=== PATIENT | female | born 1965 | race Caucasian/White ===

== ENCOUNTER 2018-05-26 09:14 | Outpatient (POV) | END 2018-05-26 17:00 | LOC: OUTPT 09:14 | PROVIDERS: ATTEND Otolaryngology | DX: H91.90 Unspecified hearing loss, unspecified ear (principal) ==

== ENCOUNTER 2018-09-28 10:35 | Outpatient (CLI) | END 2018-09-28 10:36 | disposition home or self-care (01) | LOC: RHC-LAB 10:35 → FCC-LAB 10:36 | PROVIDERS: ATTEND Nurse Practitioner Family | DX: L89.322 Pressure ulcer of left buttock, stage 2 (principal); L03.317 Cellulitis of buttock | CPT/HCPCS: 87070; 87186 ==

== ENCOUNTER 2018-09-29 09:55 | Outpatient (CLI) | END 2018-09-29 09:56 | disposition home or self-care (01) | LOC: WOUND 09:55 | PROVIDERS: ATTEND Nurse Practitioner Family | DX: L89.323 Pressure ulcer of left buttock, stage 3 (principal); L89.313 Pressure ulcer of right buttock, stage 3; E11.9 Type 2 diabetes mellitus without complications; Z79.4 Long term (current) use of insulin | CPT/HCPCS: 99202 ==

== ENCOUNTER 2018-10-01 11:20 | Inpatient (IN) ==
[2018-10-01] MEDS ORDERED: SODIUM CHLORIDE 1,000 ML IV STA (12:31)
[2018-10-01] MEDS ORDERED: ZOSYN 4.5 GM 4.5 GM in SODIUM CHLORIDE 100 ML IV STA (12:32)
[2018-10-01] MEDS ORDERED: HUMULIN R SUBCUT STA ×3 (12:36→15:52)
--- NOTE | 2018-10-01 12:37 | CT ---
EXAM: CT THORAX HISTORY: Cough. TECHNIQUE: CT thorax without intravenous contrast. Multiplanar images presented. Of COMPARISON: None FINDINGS: Normal heart size. No pericardial effusion. Mild atherosclerotic disease involving also the coronar y arteries. Thoracic aorta is within normal limits otherwise. A few scattered nonspecific small med iastinal lymph nodes are present. Lung volumes were low. Scattered areas of faint discoid opacity which probably represents atelectasi s although minimal pneumonia is not excluded. Normal vascularity. No pleural fluid or pneumothorax. The bones are within normal limits. IMPRESSION: Atherosclerosis. 1. Lung volumes were low. Scattered areas of faint discoid opacity which probably represents atelec tasis although minimal pneumonia is not excluded. 2. Atherosclerotic disease involving the coronary arteries as well.
[2018-10-01] MEDS ORDERED: VANCOMYCIN 1 GM in SODIUM CHLORIDE 250 ML IV STA (12:43)
--- NOTE | 2018-10-01 12:43 | CT ---
EXAM: CT pelvis HISTORY: Decubitus ulcer. TECHNIQUE: CT pelvis without contrast. Multiplanar images provided. FINDINGS: No comparison. Diagnostic limitations may exist without including contrast enhanced images. No ascites. Bowel gas pattern is within normal limits. Urinary bladder appears normal. No uterus is seen. Posterior to the distal sacrum, there is mild thickening of soft tissue attenuation. Also mild cutan eous deformity. This suggests the level of the patient's ulcer. The soft tissue opacity may represe nt granulation tissue or complex fluid. There is no well-defined drainable collection seen. No timoteo onal gas collection is obvious. The bones reveal no evidence of the destructive process or fracture. There is no CT evidence of oste omyelitis. IMPRESSION: 1. Shallow decubitus ulcer posterior to the lower sacrum with no drainable or defined fluid collecti on or gas. 2. No evidence of osteomyelitis.
--- NOTE | 2018-10-01 12:45 | ED.PDOC ---
General ED Provider: Dr. AUSTEN ALLEN Chief Complaint: Diabetes Stated Complaint: high blood sugar Time Seen by Physician: 11:20 (at 11:15 pm told me pt's blood sugar is trending high sending to ED ) Mode of Arrival: Wheelchair Information Source: Patient, Family Exam Limitations: No limitations (ARRIVED AOX3 NO ACUTE DISTRESS NEURO ON ARRIVAL WNL) Primary Care Provider: KAREN FORDE Nursing and Triage Documentation Reviewed and Agree: Yes Does patient meet sepsis criteria?: No If yes, has appropriate treatment been initiated?: Yes System Inflammatory Response Syndrome: Not Applicable Sepsis Protocol: For patient's 13 years and over: Temp is 96.8 and below OR 101 and greater Pulse >90 BPM Resp >20/minute Acutely Altered Mental Status Are patient's symptoms suggestive of a new infection, such as: -Pneumonia -Skin, Soft Tissue -Endocarditis -UTI -Bone, Joint Infection -Implantable Device -Acute Abdominal Infection -Wound Infection -Meningitis -Blood Stream Catheter Infection -Unknown Endocrine Complaint Exam - Diabetic Complication Complaint/Exam Onset/Duration: TODAY Symptoms Are: Still present Timing: Constant Initial Severity: Moderate Current Severity: Moderate (HIGH BLOOD SUGAR NEURO WNL) Aggravating: Reports: None Alleviating: Reports: None (HAS A STAGE 3 DECUB ULCER ) Associated Signs and Symptoms: Reports: Polydipsia, Polyuria, Polyphagia. Denies: Decreased LOC, Weight loss, Abdominal pain, Nausea, Vomiting, Fever, Diaphoresis, Fruity breath Related History: Reports: DM 2, Insulin requiring, Neuropathy Cardiac Risk Factors: Reports: Hypertension CVA Risk Factors: Reports: Hypertension Serious Bacterial Infection Risk Factors: Reports: None (BUT HAS DECUB ULCER ) Acetone on Breath: No Dry Mucous Membranes: Yes Kussmaul Respirations: No Glascow Coma Scale (see protocol): 15 Meningeal Signs: No Focal Weakness: None Focal Sensory Loss: None Gait: Unable (BKA BILATERAL) Nystagmus Present: No Gag Reflex Present: Yes Finger to Nose: Normal Romberg Test Positive: No Babinski Sign: Negative Right, Negative Left Differential Diagnoses: Diabetic Ketoacidosis, Hyperosmolar State, Sepsis Quality Indicator For Non-Traumatic Chest Pain/Syncope: EKG Performed Review of Systems - Review Of Systems Constitutional: Reports: Malaise Eyes: Reports: No symptoms Ears, Nose, Mouth, Throat: Reports: No symptoms Respiratory: Reports: No symptoms Cardiac: Reports: No symptoms GI: Reports: No symptoms : Reports: Frequency Musculoskeletal: Reports: No symptoms Skin: Reports: No symptoms Neurological: Reports: No symptoms Endocrine: Reports: No symptoms Hematologic/Lymphatic: Reports: No symptoms All Other Systems: Reviewed and Negative Past Medical History - Past Medical History Previously Healthy: No Endocrine: Reports: DM 2 Cardiovascular: Reports: Hypertension Respiratory: Reports: None Hematological: Reports: None Gastrointestinal: Reports: None Genitourinary: Reports: UTI Neuro/Psych: Reports: Depression Musculoskeletal: Reports: Other (BKA ) Cancer: Reports: None Last Menstrual Period: none - Surgical History General Surgical History: Reports: None - Family History Family History: Reports: None - Social History Smoking Status: Never smoker Hx Substance Use: No Alcohol Screening: None Physical Exam - Physical Exam Appearance: Well-appearing, No pain distress, Well-nourished Eyes: SAMREEN, EOMI, Conjunctiva clear ENT: Dry mucosa Respiratory: Airway patent, Breath sounds clear, Breath sounds equal, Respirations nonlabored Cardiovascular: RRR, Pulses normal, No rub, No murmur GI/: Soft, Nontender, No masses, Bowel sounds normal, No Organomegaly Musculoskeletal: Normal strength, ROM intact, No edema, No calf tenderness Skin: Warm, Dry, Normal color Neurological: Sensation intact, Motor intact, Reflexes intact, Cranial nerves intact, Alert, Oriented Psychiatric: Affect appropriate, Mood appropriate Re-Evaluation - Re-Evaluation Time of Re-Evaluation: 12:48 (NEURO NONE FOCAL) Status: Unchanged, Improved Vital Signs Stable: Yes Pain Level: 0 Appearance: NAD Lungs: Clear Skin: Warm and Dry Neuro: Alert and Oriented X3 CV: RRR Physician Notification - Case Discussed Physician Notified: PMD Time of Notification: 12:48 (ADMITTED ) Admit/Transition Orders Entered by ED Provider: Yes Admit To: Inpatient Critical Care Note - Critical Care Note Total Time (mins): 0 Course - Course Hematology/Chemistry: 10/01/18 11:45 10/01/18 11:45 Orders, Labs, Meds: Lab Review 10/01/18 10/01/18 10/01/18 11:45 11:45 11:45 WBC 9.35 RBC 4.44 Hgb 12.5 Hct 39.0 MCV 87.8 MCH 28.2 MCHC 32.1 RDW Coeff of Veda 13.4 Plt Count 254 Immature Gran % (Auto) 0.4 Neut % (Auto) 68.2 Lymph % (Auto) 21.3 Bowman % (Auto) 7.7 Eos % (Auto) 2.0 Baso % (Auto) 0.4 Immature Gran # (Auto) 0.0 Neut # (Auto) 6.4 Lymph # (Auto) 2.0 Bowman # (Auto) 0.7 Eos # (Auto) 0.2 Baso # (Auto) 0.0 Sodium 128.8 L Potassium 4.50 Chloride 95.7 L Carbon Dioxide 22.0 Anion Gap 15.60 BUN 10.2 Creatinine 0.94 Estimated GFR (MDRD) 63.00 BUN/Creatinine Ratio 10.85 Glucose 710.0 H* Lactic Acid Calcium 8.13 L Total Bilirubin 0.19 L AST 13.0 L ALT 13.7 Alkaline Phosphatase 63.8 Total Creatine Kinase Troponin I Total Protein 6.84 Albumin 3.69 Globulin 3.15 Albumin/Globulin Ratio 1.17 Procalcitonin 0.05 10/01/18 10/01/18 11:45 11:45 WBC RBC Hgb Hct MCV MCH MCHC RDW Coeff of Veda Plt Count Immature Gran % (Auto) Neut % (Auto) Lymph % (Auto) Bowman % (Auto) Eos % (Auto) Baso % (Auto) Immature Gran # (Auto) Neut # (Auto) Lymph # (Auto) Bowman # (Auto) Eos # (Auto) Baso # (Auto) Sodium Potassium Chloride Carbon Dioxide Anion Gap BUN Creatinine Estimated GFR (MDRD) BUN/Creatinine Ratio Glucose Lactic Acid 4.74 H Calcium Total Bilirubin AST ALT Alkaline Phosphatase Total Creatine Kinase 103.7 Troponin I Pending Total Protein Albumin Globulin Albumin/Globulin Ratio Procalcitonin Orders Category Date Time Status ABG DRAW REQUEST Stat CARDIO 10/01/18 12:28 Ordered EKG-(ED ONLY) Stat CARDIO 10/01/18 12:29 Ordered EKG-(IP & OP ONLY) DAILY CARDIO 10/02/18 06:00 Ordered EKG-(IP & OP ONLY) DAILY CARDIO 10/03/18 06:00 Ordered EKG-(IP & OP ONLY) DAILY CARDIO 10/04/18 06:00 Ordered ACTIVITY .Complete BR CARE 10/01/18 12:40 Ordered BLOOD GLUCOSE MONITORING ACCUCHECK Q6H CARE 10/01/18 12:40 Ordered GIVE HS SNACK 2100 CARE 10/01/18 12:42 Ordered VITAL SIGNS Q4HR CARE 10/01/18 12:40 Ordered VITAL SIGNS Q8HR CARE 10/01/18 12:40 Ordered ADA 1800 OSIRIS. DIET DIETARY 10/01/18 Lunch Ordered HS SNACK DIETARY 10/01/18 Dinner Ordered ED IV/MEDIPORT/POWERPORT .ONCE EMERGENCY 10/01/18 12:31 Ordered ABG Stat LAB 10/01/18 12:28 Ordered BLOOD CULTURE (ED ONLY) Stat LAB 10/01/18 11:45 Received CBC W/ AUTO DIFF DAILY@0600 LAB 10/02/18 06:00 Ordered CBC W/ AUTO DIFF DAILY@0600 LAB 10/03/18 06:00 Ordered CBC W/ AUTO DIFF Stat LAB 10/01/18 11:45 Completed COMPREHENSIVE METABOLIC PANEL DAILY@0600 LAB 10/02/18 06:00 Ordered COMPREHENSIVE METABOLIC PANEL DAILY@0600 LAB 10/03/18 06:00 Ordered COMPREHENSIVE METABOLIC PANEL Stat LAB 10/01/18 11:45 Completed CREATINE KINASE Q8H LAB 10/01/18 18:45 Ordered CREATINE KINASE Q8H LAB 10/02/18 02:45 Ordered CREATINE KINASE Stat LAB 10/01/18 12:29 Ordered LACTIC ACID Stat LAB 10/01/18 11:45 Completed PROCALCITONIN Stat LAB 10/01/18 11:45 Received TROPONIN I Stat LAB 10/01/18 12:29 Ordered URINALYSIS C & S IF INDICATED Stat LAB 10/01/18 11:48 Uncollected 0.9 % Sodium Chloride [Saline Flush] MEDS 10/01/18 12:31 Ordered 1 syr IVF PRN PRN Bupropion HCl [Bupropion Xl] MEDS 10/02/18 09:00 Ordered 300 mg PO DAILY Buspirone HCl [Buspirone HCl] MEDS 10/01/18 15:00 Ordered 20 mg PO TID Dressing MEDS 10/02/18 09:00 Ordered 1 each TP DAILY Gabapentin [Neurontin] MEDS 10/01/18 15:00 Ordered 300 mg PO TID Insulin Regular, Human [Humulin R] MEDS 10/01/18 12:36 Stat 15 unit SUBCUT ONCE STA Insulin Regular, Human [Humulin R] MEDS 10/01/18 12:39 Stat See Protocol SUBCUT ONCE STA Lorazepam [Ativan] MEDS 10/02/18 09:00 Ordered 1 mg PO DAILY Metformin HCl [Glucophage] MEDS 10/01/18 21:00 Ordered 500 mg PO BID Metoprolol Tartrate [Lopressor] MEDS 10/01/18 21:00 Ordered 25 mg PO BID Omeprazole [Omeprazole] MEDS 10/02/18 09:00 Ordered 40 mg PO DAILY Piperacillin Sodium/Tazobactam [Zosyn 4.5 gm] 4.5 gm MEDS 10/01/18 12:32 Ordered 0.9 % Sodium Chloride [Sodium Chloride] 100 ml IV ONCE SODIUM CHLORIDE 0.9% @ 1,000 MLS/HR(1,000ml) MEDS 10/01/18 12:31 Ordered Sodium Chloride 0.9% [Sodium Chloride] 1,000 ml IV BOLUS Sodium Chloride 0.9% [Sodium Chloride] 1,000 ml MEDS 10/01/18 13:00 Ordered IV 125 mls/hr Tizanidine HCl [Zanaflex] MEDS 10/01/18 15:00 Ordered 4 mg PO TID Vancomycin HCl [Vancomycin] 1 gm MEDS 10/01/18 12:43 Ordered 0.9 % Sodium Chloride [Sodium Chloride] [address] CHEST W/O CONTRAST Stat RADS 10/01/18 11:[address] PELVIS W/O CONTRAST Stat RADS 10/01/18 11:54 Ordered Medications Generic Name Dose Route Start Last Admin Trade Name Freq PRN Reason Stop Dose Admin Gabapentin 300 mg 10/01/18 15:00 Neurontin PO TID GABI Sodium Chloride 1,000 mls @ 1,000 mls/hr 10/01/18 12:31 Sodium Chloride IV 10/01/18 13:30 BOLUS STA Piperacillin Sod/Tazobactam 100 mls @ 100 mls/hr 10/01/18 12:32 Sod 4.5 gm/ Sodium Chloride IV 10/01/18 13:31 ONCE STA Sodium Chloride 1,000 mls @ 125 mls/hr 10/01/18 13:00 Sodium Chloride IV .Q8H GABI Lorazepam 1 mg 10/02/18 09:00 Ativan PO DAILY GABI Metformin HCl 500 mg 10/01/18 21:00 Glucophage PO BID GABI Metoprolol Tartrate 25 mg 10/01/18 21:00 Lopressor PO BID GABI Non-Formulary Medication 20 mg 10/01/18 15:00 Buspirone Hcl [Buspirone Hcl] PO TID [facility] Non-Formulary Medication 1 each 10/02/18 09:00 Dressing TP DAILY [facility] Non-Formulary Medication 40 mg 10/02/18 09:00 Omeprazole [Omeprazole] PO DAILY GABI Non-Formulary Medication 4 mg 10/01/18 15:00 Tizanidine Hcl [Zanaflex] PO TID [facility] Non-Formulary Medication 300 mg 10/02/18 09:00 Bupropion Hcl [Bupropion Xl] PO DAILY [facility] Sodium Chloride 1 syr 10/01/18 12:31 Saline Flush IVF PRN PRN To flush IV Discontinued Medications Generic Name Dose Route Start Last Admin Trade Name Freq PRN Reason Stop Dose Admin Insulin Human Regular 15 unit 10/01/18 12:36 Humulin R SUBCUT 10/01/18 12:37 ONCE STA Insulin Human Regular 0 unit 10/01/18 12:39 Humulin R SUBCUT 10/01/18 12:40 ONCE STA Protocol Vital Signs: Temp Pulse Resp BP Pulse Ox 10/01/18 11:20 96.7 F L 76 18 112/73 98 Departure - Departure Time of Disposition: 12:49 (NO ACUTE EVENT WHILE IN ED ) Disposition: ADMITTED INPATIENT Discharge Problem: Uncontrolled diabetes mellitus Qualifiers: Diabetes mellitus type: type 2 Glycemic state: with hyperglycemia Qualified Code(s): E11.65 - Type 2 diabetes mellitus with hyperglycemia Condition: Good Pt referred to PMD for follow-up: Yes IPMP verified?: No Allergies/Adverse Reactions: Allergies iodine Allergy (Verified 10/01/18 11:25) Anaphylaxis promethazine HCl [From Phenergan] Allergy (Verified 10/01/18 11:25) rash Iodinated Contrast- Oral and IV Dye Adverse Reaction (Verified 10/01/18 11:25) Home Medications: Ambulatory Orders Tizanidine HCl [Zanaflex] 4 mg PO TID 08/30/18 Disposition Discussed With: Patient, Family
[2018-10-01 14:28] VITALS: BMI 51.4
[2018-10-01] MEDS ORDERED: BUSPIRONE HCL 20 MG PO SCH (15:00)
[2018-10-01] MEDS ORDERED: NEURONTIN PO SCH (15:00)
[2018-10-01] MEDS ORDERED: NON-FORMULARY MEDICATION (Tizanidine Hcl [Zanaflex] 4 MG) PO SCH (15:00)
[2018-10-01] MEDS: ZANAFLEX PO SCH ×2 (16:02→21:43)
[2018-10-01] MEDS: BUSPAR PO SCH ×2 (16:03→21:43)
--- NOTE | 2018-10-01 16:34 | PCM ---
- Chief Complaint Chief Complaint: Hyperglycemia, Sacral wound. - History of Present Illness History of Present Illness: 53 yo WF presented to clinic today with sharon for hyperglycemia. She has been feeling worse ~2 weeks since onset of her pain in her buttock. She has had worsening pain, nausea, drinking more liquids. She called clinic 09/17/18 and was told to go to ER with how she was feeling. Thursday09/27/18 she called back, she did not go to ER week previous as instructed, did not want to go to ER . She called clinic and was able to get appt w/ [facility]CHARDIST [facility] 09/28/18, got her into wound care on 09/29/18. She did see them, open wound, bandaged wound, topical ointment sent home, keflex started on thursday and they changed this for bactrim. She has no sulfa allergy. She called today and reported worsening still. I had them bring her to clinic for evaluation as she reported blood glucose was HHH. We brought her in, I talked with her, evaluated vitals, non SIRS criteria, GCS 15, no odor of fruit and she was able to articulate/answer questions. I recommended ER evaluation for labs, eval for DkA/HOSM, and potassium. She was sent to ER around 11:20 this am. We did not eval her wound in clinic. She noted #2 lesions of the buttocks, I do not have access to the wound care notes. She has no other complaints, no CHest pain, no HERRERA, no vision changes. +Polydipsia/thirst, fatigue and nausea with sporadic emesis. ED note reviewed, talked with Dr. Atkinson personally about history. 11:20 this AM I called ED and informed them of Glucose registering HHH on accucheck. She was taken to ER in and evaluated. SIRS criteria were not met, afebrile, HR stable, BP stable, WBC found to be stable. ER reporrted symptoms started today ( but this has been present for a while). High blood sugar, neuro within normal limits, Stage 3 decub ulcer, polydipsia, polyruia, polyphagia. history of DM2, Insulin requiring, neuropathy. HTN. BKA bilaterally, DDX dka, hyperosmolar state, Sepsis. History of DM 2 uncontrolled, morbid obesity, bilateral bka, HTN , UTI frequently. Non focal neruo exam, GX 15, NAD similar to how she presented to clinic today. 12:48 called me today and admitted to hospital. WBC 9.35, hgb 12.5, plt 254. Sodium 128.8, potassium 4.50, cl 95.7, c02 22, gap 15.60, BUN 10.2, cr 0.94, GFR 63, glucose 710, lactic acid 4.74, calcium 8.13, AST 13, alt 13.7, alk phos 63.8. Albumin 3.69. Procalcitonin normal at 0.05. Total CK 103.7, troponin negative. Admitted with DM 2 w/ hyperglycemia. Reviewed note from 09/28/18 from DAWSON Yepez. Stage 2 Ulcer buttock, ? cellulitis dx. Put on keflex. I do not have access to wound care note. Patient today has no other c/o. - Review of Systems Constitutional: chills, weakness, sweats, fatigue, loss of appetite Eyes: No: blurred vision, double-vision, discharge, itching, pain, redness, photophobia, other Ears: No: pain, bleeding, drainage, ringing, hearing loss, other Nose: No: bleeding, congestion, discharge, other Throat: No: pain, swelling, voice change, other Mouth: No: bleeding, pain, swelling, other Respiratory: No: cough, shortness of air, wheeze, hemoptysis, pain with breathing, other Cardiovascular: No: chest pain, left arm pain, diaphoresis, PND, orthopnea, edema, palpitations, syncope, other Gastrointestinal: abdominal pain, nausea, vomiting. No: other, diarrhea, melena , hematemesis, hematochezia, dysphagia, constipation Genitourinary: No: dysuria, hematuria, frequency, incontinence, flank pain, vaginal discharge, abnormal bleeding, pelvic pain, other Neurological: problems with walking (chronic). No: headache, dizziness, seizure , numbness, weakness, speech difficulty Musculoskeletal: other (BKA) Skin: wounds (Buttock #2) Immunology: frequent infections, difficulty healing Hematology: easy bruising Endocrine: excessive thirst, excessive hunger Psychiatric: depression, anxiety, sleeplessness Habits: No: tobacco use, substance use, alcohol use, other - Past Medical History Past Medical History: Insulin dependent DM, hard of hearing, essential HTN, phantom pain, BKA, BMI 51.4, Depression, WC dependent, hyperlipidemia, GERD, recurrent sniusitis, dietary indiscretion, Chrnoic systolic CHF. - Past Surgical History Past Surgical History: Appendectomy, cholecystectomy, hysterectomy, tonsillectomy, BKA. - Allergies Allergies/Adverse Reactions: Allergies Allergy/AdvReac Type Severity Reaction Status Date / Time iodine Allergy Anaphylaxis Verified 10/01/18 11:25 promethazine HCl Allergy rash Verified 10/01/18 11:25 [From Phenergan] Iodinated Contrast- Oral and AdvReac Verified 10/01/18 11:25 IV Dye - Medications Medications: Medications Generic Name Dose Route Start Last Admin Trade Name Freq PRN Reason Stop Dose Admin Bupropion HCl 300 mg 10/02/18 09:00 Wellbutrin Xl PO DAILY GABI Buspirone HCl 20 mg 10/01/18 15:00 10/01/18 16:03 Buspar PO 20 mg TID GABI Administration Gabapentin 300 mg 10/01/18 15:00 10/01/18 16:02 Neurontin PO 300 mg TID GABI Administration Sodium Chloride 1,000 mls @ 125 mls/hr 10/01/18 13:00 Sodium Chloride IV .Q8H GABI Lorazepam 1 mg 10/02/18 09:00 Ativan PO DAILY GABI Metformin HCl 500 mg 10/01/18 17:30 Glucophage PO BIDWM GABI Metoprolol Tartrate 25 mg 10/01/18 21:00 Lopressor PO BID GABI Non-Formulary Medication 1 each 10/02/18 09:00 Dressing TP DAILY [facility] Omeprazole 40 mg 10/02/18 06:30 Prilosec PO QDAC GABI Sodium Chloride 1 syr 10/01/18 12:31 10/01/18 13:09 Saline Flush IVF 1 syr PRN PRN Administration To flush IV Tizanidine HCl 4 mg 10/01/18 15:00 10/01/18 16:02 Zanaflex PO 4 mg TID GABI Administration - Family History Past Family History: Adopted. boys aged 21 and 17. They have no medical problems. - Social History Past Social History: Never smoker, Intermittent ETOH, alevism. Lives with . - Vital Signs Temperature: 99.1 F Pulse Rate: 77 Respiratory Rate: 20 Blood Pressure: 112/73 O2 Sat by Pulse Oximetry: 98 - Body Composition Height: 4 ft 8 in Weight: 229 lb 4.492 oz Body Mass Index (BMI): 51.4 - Physical Examination HEENT: Constitutional: Appearance-No acute distress, Consistent with stated age, talkative, hard of hearing, pleasant. Orientation- Oriented x 3, alert Gait- BKA , WC ambulates. Build and Nutrition-[morbidly obese female] General- Patient is pleasant and cooperative with the interview and exam. Integumentary: General-No rashes, ulcers or lesions. With nurse present skin of chest/back, axilla, groin and buttock evaluated. She has lesions x2 on buttock currently bandaged. REmoved bandage and evaluated these. 4x5 Left, 3x2 Right. Bilateral tibial tuberosity with small erosions from her prosthetic. None look overtly infected. She has minimal erythema along the rim, some yellow eschar. They are stage 2/3 on buttock and 1-2 on legs. She has erosion on legs from the prosthetic. Numerous excoriations bilateral wrists/hands from puppy. No cats reported. Palpation- Normal skin moisture/turgor. Skin is warm to touch, appropriate. Capillary refill is normal bilateral Upper extremity. Stump of bilateral BKA appears intact. Head/Neck: Head- normocephalic and atraumatic. Neck- without visible/palpable lumps or pulsations. Palpation- No bony tenderness about head/neck along frontal, occipital, temporal, parietal, mastoid, jawline, zygoma, orbit or any other location. NO temporal artery tenderness. No TMJ tenderness. Neck Supple. Thyroid-No thyromegaly, no nodules Eye: Bilaterally PERRLA, EOMI. No discharge. Upper and lower eyelids are normal. Sclera/conjunctiva normal without discharge. Cornea is normal and clear. Lens is normal. Eyeball appears normal. No ciliary flushing, no conjunctival injection. ENMT: Pinna- normal without tenderness or erythema. External auditory canal Left- normal without erythema or discharge, no excessive cerumen. External auditory canal Right-normal without erythema or discharge, no excessive cerumen. TM left- López/pearly, normal light reflex and anatomy TM Right- López/ pearly, normal light reflex and anatomy Hearing Assessment-normal to conversational speech. Nose and sinus- No sinus tenderness along frontal/ maxillary region. External appearance normal and midline. Nares- bilateral quiet airflow, no discharge. Nasal mucosa- No bleeding noted and no ulcerations observed. [place], moist. Turbinates non boggy. Lips- normal color, moist without cracks/lesions Oral Cavity/Palate- hard/soft palate intact without lesions, oral mucosa pink and moist. Oropharynx- no pharyngeal erythema, Uvula midline. No post nasal drip. No exudate. Salivary glands- Non tender to palpation CHEST/LUNG: Inspection- symmetric chest wall no pectus deformity. Normal effort , no distress, no use of accessory muscles. Palpation- nontender sternum, ribline. No abnormal pulsations. Auscultation- Breath sounds normal throughout all lung dyson. Normal tracheal sounds, Normal bronchial sounds overlying sternum, Bronchovessicular sounds normal between scapulae posteriorly, Normal vessicular breath sounds heard throughout periphery. Lungs are clear today. Adventitious sounds- No wheezes, rales, rhonchi. CARDIOVASCULAR: Carotid artery- normal, no bruits or abnormal pulsations. Jugular vein- no pulsations. Palpation/Percussion- Normal PMI, no palpable thrill Auscultation- Regular rate and rhythm. No murmur noted in sitting, supine positions. Extremities- no digital clubbing, cyanosis, or edema of UE (BKA). ABDOMEN: Inspection- normal and no visible pulsations. Normal contour. Auscultation- Bowel sounds normal, no abdominal bruits. Palpation/Percussion- soft, non-tender, no rebound tenderness, no rigidity (guarding), no jar tenderness, no masses. Liver-no hepatomegaly, Spleen no splenomegaly, Peripheral Vascular: Upper extremity Left- Normal temperature with pink nailbeds and no ulcerations. Upper extremity Right- Normal temperature with pink nailbeds and no ulcerations. Lower extremity- unable to evaluate, s/p BKA > Musculoskeletal: Generalized-No generalized swelling or edema of extremities, no digital clubbing or cyanosis, neurovascularly intact bilateral UE. Upper extremity- Symmetrical posture. No visible deformity. Normal sensation along medial and lateral upper extremity proximally and distally. NO tenderness overlying shoulder, lateral/medial epicondyle. Drying Equipment Operator 5/5 and strength 5/5 bilateral UE. Elbow palpated, no tenderness overlying olecranon. Normal supination, pronation to active/passive ROM and to resisted rotation. Bicep insertion/tricep insertion appear normal without obvious pathology. Normal wrist ROM bilaterally. Normal hand movement, intrinsic muscles of hands normal. No tenderness to palpation of hands/wrists/elbows. Lower extremity- Hip: Not tender to palpation, no pain, no swelling, edema or erythema of surrounding tissue, normal strength and tone. Normal appearing hip ROM bilaterally without pain. Knee: Knee ROM normal. BKA bilaterally. Stumps intact other than a few abrasions/erosions. No e/o infection. No tenderness overlying trochanters, no tenderness about patella, quad tendon, Spine/Ribs- Able to roll. No deformities, masses or tenderness, no known fractures, normal strength, Normal ROM. Normal stability No tenderness along C/T /L spine. Normal appearing ROM about spine. Neurological: General- Moves all 4 extremities symmetrically, bilateral UE within normal limits. Bilateral LE knee flexion/extension at stump and normal hip ROM. Symmetrical face and body posture. Cranial nerves- individually evaluated II-XII and intact. PERRLA, Normal EOMI, visual/special senses appear intact, Face is symmetrical and normal sensation/movement, normal tongue, normal strength/posture of neck musculature. Reflexes- intact with DTR 2+ bicep , brachial. Strength- 5/5 bilateral UE and LE. Soft touch- intact bilateral UE and LE to the knee. Temperature sensation- intact bilateral UE and LE to the knee. Neuropsych: Oriented- Person, place, time. (AAOx3), Mood/affect- normal and congruent. Able to articulate well. Speech-Normal speech, normal rate, normal tone, normal use of language, volume and coherence. Thought content- normal with ability to perform basic computations and apply abstract thought/reason. Associations- intact, no SI/HI, no hallucinations, delusions, obsessions. Judgment/insight- Appropriate. Memory-Recall intact, remote and recent memory intact. Knowledge- Age appropriate fund of knowledge, concentration and attention span normal. Lymphatic: Head/Neck- normal size and non tender to palpation. Axillary- normal size and non tender to palpation. Femoral and Inguinal- normal size and non tender to palpation. 4x5 Left, 3x2 Right. Bilateral tibial tuberosity with small erosions from her prosthetic. [place] Weight 100.3 lb Adjusted Weight 151.8 lb - Lab/Tests/Diagnostic Imaging Lab/Tests/Diagnostic Imaging: Laboratory Last Values WBC 9.35 K/ul (4.6-10.2) 10/01/18 11:45 RBC 4.44 10^6/ul (4.20-5.40) 10/01/18 11:45 Hgb 12.5 g/dl (12.0-16.0) 10/01/18 11:45 Hct 39.0 % (37.0-47.0) 10/01/18 11:45 MCV 87.8 fl (81.0-99.0) 10/01/18 11:45 MCH 28.2 pg (27.0-31.0) 10/01/18 11:45 MCHC 32.1 (31.8-35.4) 10/01/18 11:45 RDW Coeff of Veda 13.4 % (11.6-14.8) 10/01/18 11:45 Plt Count 254 10^3/uL (140-440) 10/01/18 11:45 Immature Gran % (Auto) 0.4 % (0.0-5.0) 10/01/18 11:45 Neut % (Auto) 68.2 10/01/18 11:45 Lymph % (Auto) 21.3 (10.0-50.0) 10/01/18 11:45 [place] % (Auto) 7.7 (0-10) 10/01/18 11:45 Eos % (Auto) 2.0 % (0.0-7.0) 10/01/18 11:45 Baso % (Auto) 0.4 % (0.0-3.0) 10/01/18 11:45 Immature Gran # (Auto) 0.0 (0.0-1.0) 10/01/18 11:45 Neut # (Auto) 6.4 K/ul (2.0-6.9) 10/01/18 11:45 Lymph # (Auto) 2.0 K/uL (0.60-3.4) 10/01/18 11:45 [place] # (Auto) 0.7 K/uL (0.4-2.0) 10/01/18 11:45 Eos # (Auto) 0.2 K/ul (0.0-0.7) 10/01/18 11:45 Baso # (Auto) 0.0 K/uL (0-0.2) 10/01/18 11:45 Puncture Site R brach 10/01/18 12:40 O2 Saturation 97.0 % (95-100) 10/01/18 12:40 ABG pH 7.322 (7.35-7.45) L 10/01/18 12:40 ABG pCO2 38.8 mmHg (35-45) 10/01/18 12:40 ABG pO2 96.0 mmHg (85-100) 10/01/18 12:40 ABG HCO3 20.0 (22.0-26.0) L 10/01/18 12:40 ABG Total CO2 21 (22.0-28.0) L 10/01/18 12:40 ABG Base Excess -6 (-2.0-2.0) L 10/01/18 12:40 [place] Test + 10/01/18 12:40 FiO2 % 21.0 % 10/01/18 12:40 Sodium 128.8 mmol/L (134.5-145) L 10/01/18 11:45 Potassium 4.50 mmol/L (3.5-5.1) 10/01/18 11:45 Chloride 95.7 mmol/L (98-107) L 10/01/18 11:45 Carbon Dioxide 22.0 mmol/L (22-30.0) 10/01/18 11:45 Anion Gap 15.60 10/01/18 11:45 BUN 10.2 mg/dL (7-17) 10/01/18 11:45 Creatinine 0.94 mg/dL (0.60-1.30) 10/01/18 11:45 Estimated GFR (MDRD) 63.00 mL/min 10/01/18 11:45 BUN/Creatinine Ratio 10.85 10/01/18 11:45 Glucose 710.0 mg/dL (74-106) H* 10/01/18 11:45 Lactic Acid 4.74 mmol/L (0.7-2.1) H 10/01/18 11:45 Calcium 8.13 mg/dL (8.4-10.2) L 10/01/18 11:45 Total Bilirubin 0.19 mg/dL (0.2-1.3) L 10/01/18 11:45 AST 13.0 U/L (14-36) L 10/01/18 11:45 ALT 13.7 U/L (0-35) 10/01/18 11:45 Alkaline Phosphatase 63.8 U/L (38-126) 10/01/18 11:45 Total Creatine Kinase 100.8 U/L (30-135) 10/01/18 19:25 Troponin I < 0.012 ng/ml (0.0000-0.120) 10/01/18 11:45 Total Protein 6.84 g/dL (6.3-8.2) 10/01/18 11:45 Albumin 3.69 g/dL (3.5-5.0) 10/01/18 11:45 Globulin 3.15 10/01/18 11:45 Albumin/Globulin Ratio 1.17 10/01/18 11:45 Procalcitonin 0.05 ng/mL (0.09) 10/01/18 11:45 Urine Color Light (YELLOW) 10/01/18 13:00 Urine Clarity Slightly (CLEAR) 10/01/18 13:00 Urine pH 6.5 (5-9) 10/01/18 13:00 Ur Specific [place] 1.010 (1.005-1.030) 10/01/18 13:00 Urine Protein Negative (NEGATIVE) 10/01/18 13:00 Urine Glucose (UA) 2+ (NEGATIVE) 10/01/18 13:00 Urine Ketones Negative (NEGATIVE) 10/01/18 13:00 Urine Blood 2+ (NEGATIVE) 10/01/18 13:00 Urine Nitrite Negative (NEGATIVE) 10/01/18 13:00 Urine Bilirubin Negative (NEGATIVE) 10/01/18 13:00 Urine Urobilinogen 0.2 (0.2) 10/01/18 13:00 Ur Leukocyte Esterase 2+ (NEGATIVE) 10/01/18 13:00 Urine Microscopic RBC Tntc (0-2) 10/01/18 13:00 Urine Microscopic WBC Tntc (0-2) 10/01/18 13:00 Ur Squamous Epith Cells Not present (0-5) 10/01/18 13:00 Urine Bacteria 1+ (NOT PRESENT) 10/01/18 13:00 ABG: Personal interpretation of the ABG: Non Gap Metabolic acidosis, primary metabolic acidosis w/ secondary respiratory acidosis. Corrected sodium: 138-143 Corrected calcium: 8.4. CT Pelvis: Shallow decubitus ulcer, no e/o osteomyelitis. CT Chest: Atelectasis likely, cannot r/o pneumonia per radiology. cardiac monitoring: Evaluated personally and SR while in Er. - Assessment (1) Diabetes mellitus with hyperglycemia Status: Acute Code(s): E11.65 - TYPE 2 DIABETES MELLITUS WITH HYPERGLYCEMIA SNOMED Code(s): 83745373, 61364867, 066679721 (2) Sacral decubitus ulcer, stage III Status: Acute Code(s): L89.153 - PRESSURE ULCER OF SACRAL REGION, STAGE 3 SNOMED Code(s): 347599354, 602886657 (3) Hypocalcemia Status: Acute Code(s): E83.51 - HYPOCALCEMIA SNOMED Code(s): 5379573 (4) Hyponatremia Status: Acute Code(s): E87.1 - HYPO-OSMOLALITY AND HYPONATREMIA SNOMED Code( s): 48013888 (5) Essential (primary) hypertension Status: Acute Code(s): I10 - ESSENTIAL (PRIMARY) HYPERTENSION SNOMED Code(s) : 71856543 (6) Depression Status: Acute Code(s): F32.9 - MAJOR DEPRESSIVE DISORDER, SINGLE EPISODE, UNSPECIFIED SNOMED Code(s): 19498784 (7) S/P bilateral BKA (below knee amputation) Status: Acute Code(s): Z89.512 - ACQUIRED ABSENCE OF LEFT LEG BELOW KNEE; Z89.511 - ACQUIRED ABSENCE OF RIGHT LEG BELOW KNEE SNOMED Code(s): 590290309 (8) BMI 50.0-59.9, adult Status: Acute Code(s): Z68.43 - BODY MASS INDEX (BMI) 50-59.9, ADULT SNOMED Code(s): 020455971, 476838144 - Plan Plan: Diabetes 2 with hyperglycemia: Non gap acidosis, No A1C within last 30 days , last A1c was 8.1 05/21/18. I will add this for am tomorrow. Will check urine microalbumin. She has had pneumonia vaccine. She currently has hyperglycemia but I do not think that she has hyperosomlar hyperglyymic state as no change in MS. Initial goal for patient is isotonic saline. her potassium is 4.5. We will continue to fluid hydrate will check potasium again this evening. CBC/CMP tomorrow am. Lactate again in am. She has history of CHF so I will keep fluids at just over maintenance. Based on literature, I will use 0.05-0.1units/kg/ hour. Based on 0.1ml/kg/hour we will give 7-10 units subcutaneous insulin. I have set her insulin as 3 units base (90 untis total humalog divided hourly) with correctional of 1 unit extra for every 50 above 150. We will continue 1 hour accuchecks and insulin q 1 hour until ~250. I will monitor K+ closely. Tele monitor. Difficult fluid management as she is BKA. BMI 51.4. I used adjusted weight to help with calculations. Calcium corrects to normal, sodium corrects to normal. No change in mental status, she has some lactate elevation which may be secondary to adipocyte stimulation from hyperinsulinism and hyperglycemia combination. Again, control for low K+. I will have them repeat K+ this pm. She was at 4.5 and I held the K+ for now, will resume when at ~250 sugar. Continue NS, I will not adjust to D5 with her hospital stay as she is not on any drip at present. Chronic Insulin dependent status, chronic DM. Reviewed DM provides risk equivalency to already having had a heart attack. Reviewed goals of Diabetes today. The Goal is to have an Hgb A1C <7.0 for most patients (New ACP guidelines suggest 7-8% may be reasonable). Good BP control is encouraged with Goal BP based on JNC 8 guidelines 2014 of SBP <140 and DBP < 90. Discussed role of Timur-I and ARB with DM. DM imparts risk equivalence for CAD based on ATP III and modern ASCVD risk scores. Current guidelines from ACC/ AHA support moderate intensity statin with goal of 30-50% reduction in LDL unless 10 yr risk ASCVD >7.5 then high intensity should be used. Will have her f/u outpatient and we can discuss this further. - Admit to inpatient status blood glucose >700 - Q 1 hour accuchecks - Humalog 3 units plus 1 per every 50>150 q hour. - NS 125 ml/hour. - CBC/CMP in am. - Lactate again in am. -Needs to make eye provider visit. Refer at D/c. - Microalbumin in hospital. - CT x 2 done without contrast, okay to continue metformin Sacral decubitus ulcer: Wounds are present, followed by wound care, cultures pending. At this time they appear inflamed but not infectious. - Consider Change to clindamycin based on wound culture - Await wound culture. - Consider stop vanco based on culture. Chronic hearing loss: Does not have hearing aids present. - Obtain/utilize Hearing aid. Morbid Obesity BMI 51: Discussed the federal guidelines suggest a healthy goal BMI of 18.5-24.9 for people 18-65 and 23-30 for people age 65 and older. Overweight is considered BMI 25-30, Obesity 30-40 and Morbid obesity is defined as >100 lb overweight or BMI >40. With a BMI above goal, it is recommended to utilize a diet/exercise program to get back into the appropriate range. Consider referral to data analyst etl developer. For BMI >40 consider referral to bariatrics. If not already monitoring intake. I would recommend at least to keep a food diary. Document everything that is consumed into a food diary. Studies have shown that patients can lose up to 2x the weight by keeping track of foods. Offered handout on weight loss techniques. Apps that may be of benefit include [employer], Lose it. Regular exercise encouraged. Start with walking 5-10 minutes at a pace that is difficult to carry a conversation. If chest pain/SOA stop and f/u in office. Bilateral BKA: Needs to meet with [employer] and work on prosthetic fit. Vaccinations: R/B/a to influenza vaccine given to patient. She will get flu vaccine while in hospital. Pneumonia vaccine has been completed. - PPSV 23 given 06/2018 - Flu vaccine today. PsuedoHypocalcemia: corrects to normal. - Repeat CMP in am Psuedohyponatremia: Corrects to normal. DVT Prophy: Lovenox 40mg q day. Diet: Diabetic ADA 1800kcal diet. Disposition; Fluid hydration and insulin. Monitor sodium/electrolytes. Monitor for worsening CHF/FLuid status. >70 minutes spent today in admission, discussion of case with ER provider, reviewing labs, reviewing imaging, discussing medications for hospital stay. She did not meet SIRS criteria, vitals were okay but her lactate was elevated which may be secondary to her hyperglycemia and hyperinsulinism. Addendum: 9:54 PM 10/01/18. Sugars down <250. based on adjusted weight 151.8 lb , her maintainece should be greater than 109ml/hour or more, based on actual she will be 144ml/hour. I will drop her to 100ml/hour NS with 20meq K+CL-. She can have q 2 hour accucheck now. She had dinner per nurse Hannah. The patient is feeling much better. I have ordered K+ now. CMP/CBC in am. Lactate again in am. 10:27 K+ returned 3.3. I did add K+ to fluids and I will give 20meq once with snack. Repeat CMP in am. We will keep fluids at 100ml/hour.
[2018-10-01] MEDS: GLUCOPHAGE PO SCH (18:04)
[2018-10-01] MEDS: HUMULIN R SUBCUT PRN ×3 (18:04→20:24)
[2018-10-01] MEDS: SODIUM CHLORIDE 1,000 ML IV SCH ×2 (18:37→22:45)
[2018-10-01] MEDS ORDERED: LOVENOX SUBCUT SCH (20:04)
[2018-10-01] MEDS ORDERED: NON-FORMULARY MEDICATION (Gabapentin [Gabapentin] 600 MG) PO SCH (21:00)
[2018-10-01] MEDS: NEURONTIN PO SCH (21:43)
[2018-10-01] MEDS: LOPRESSOR PO SCH (21:43)
[2018-10-01] MEDS ORDERED: SODIUM CHLORIDE 0.9%-KCL 20 MEQ 1,000 ML IV SCH ×2 (22:00)
[2018-10-01] MEDS ORDERED: TYLENOL PO PRN (22:27)
[2018-10-01] MEDS: K-DUR PO SCH (22:43)
[2018-10-02] MEDS: HUMULIN R SUBCUT PRN ×4 (00:14→06:13)
[2018-10-02] MEDS ORDERED: PRILOSEC PO SCH (06:30)
[2018-10-02 08:13] VITALS: BP 112/73; TEMP 99.1
[2018-10-02] MEDS ORDERED: FLUZONE QUAD 2018-2019 SYRINGE IM ONE (08:34)
[2018-10-02] MEDS: BUSPAR PO SCH (08:39)
[2018-10-02] MEDS: K-DUR PO SCH (08:40)
[2018-10-02] MEDS: GLUCOPHAGE PO SCH (08:40)
[2018-10-02] MEDS: NEURONTIN PO SCH (08:40)
[2018-10-02] MEDS: LOPRESSOR PO SCH (08:40)
[2018-10-02] MEDS: ZANAFLEX PO SCH (08:41)
--- NOTE | 2018-10-02 08:50 | PCM.DC ---
Final Diagnosis: Diabetes mellitus with hyperglycemia (Acute) Essential (primary) hypertension (Chronic) Hyperglycemia (Acute) PSEUDOHypocalcemia (Acute) (CORRECTS TO NORMAL) PSEUDOHyponatremia (Acute) (CORRECTS TO NORMAL) S/P bilateral BKA (below knee amputation) (Chronic) Sacral decubitus ulcer, stage III (SUBAcute) Uncontrolled diabetes mellitus (CHRONIC) BMI 50-59 (Chronic) (1) Diabetes mellitus with hyperglycemia Status: Acute Code(s): E11.65 - TYPE 2 DIABETES MELLITUS WITH HYPERGLYCEMIA SNOMED Code(s): 24897583, 80358608, 036038465 (2) Sacral decubitus ulcer, stage III Status: Acute Code(s): L89.153 - PRESSURE ULCER OF SACRAL REGION, STAGE 3 SNOMED Code(s): 807394042, 347549994 (3) Hypocalcemia Status: Acute Code(s): E83.51 - HYPOCALCEMIA SNOMED Code(s): 1087496 (4) Hyponatremia Status: Acute Code(s): E87.1 - HYPO-OSMOLALITY AND HYPONATREMIA SNOMED Code( s): 50321496 (5) Essential (primary) hypertension Status: Acute Code(s): I10 - ESSENTIAL (PRIMARY) HYPERTENSION SNOMED Code(s) : 84965449 (6) Depression Status: Acute Code(s): F32.9 - MAJOR DEPRESSIVE DISORDER, SINGLE EPISODE, UNSPECIFIED SNOMED Code(s): 63468697 (7) S/P bilateral BKA (below knee amputation) Status: Acute Code(s): Z89.512 - ACQUIRED ABSENCE OF LEFT LEG BELOW KNEE; Z89.511 - ACQUIRED ABSENCE OF RIGHT LEG BELOW KNEE SNOMED Code(s): 225052959 (8) BMI 50.0-59.9, adult Status: Acute Code(s): Z68.43 - BODY MASS INDEX (BMI) 50-59.9, ADULT SNOMED Code(s): 314415707, 401330662 Reason for Hospitalization: DM 2 hyperglycemia, concern for HOSM state or DKA. She did have mild elevation of lactic acid and electrolyte abnl. Prognosis at Discharge: Good. She was very receptive of information and education about hyper/ hypoglycemia. She was very receptive about f/u and contacting optometry and prosthetics. Condition at Discharge: 1. Hyperglycemia: Resolved. Markedly improved glucose levels, she feels much better at time of d/c. 2. Sacral wound: unchanged. Wound culture pending. Wound is stable/bandaged appropriately. Continue f/u with wound care. 3. Obesity: Unchanged/chronic. 4. CHronic HTN: Stable and at goal 5. Vaccination status: INfluenza vaccine in hospital. Pneumonia vaccine up to date. Tetanus up to date. 6. Bilateral BKA: Chronic process, needs to make appt with [facility], she will complete this. 7. Hypocalcemia: Resolved/corrects with factor for albumin. 8. Hyponatremia: Resolved w/ correction of hyperglycemia 9. Hypokalemia: Oral and fluid replacement. Home K+ orally, CMP this week. Medications at Discharge: Ambulatory Orders Medication Instructions Recorded Tizanidine HCl [Zanaflex] 4 mg PO TID 08/30/18 Gabapentin 600 mg PO TID 10/01/18 Insulin Glargine,Hum.rec.anlog 55 unit SQ BID 30 Days #4 vial 10/02/18 [Lantus] Potassium Chloride [K-Dur] 20 meq PO DAILYWM 30 Days #30 tab 10/02/18 Lab/Diagnostics: Laboratory Last Values WBC 8.37 K/ul (4.6-10.2) 10/02/18 03:00 RBC 4.22 10^6/ul (4.20-5.40) 10/02/18 03:00 Hgb 11.7 g/dl (12.0-16.0) L 10/02/18 03:00 Hct 36.2 % (37.0-47.0) L 10/02/18 03:00 MCV 85.8 fl (81.0-99.0) 10/02/18 03:00 MCH 27.7 pg (27.0-31.0) 10/02/18 03:00 MCHC 32.3 (31.8-35.4) 10/02/18 03:00 RDW Coeff of Veda 13.4 % (11.6-14.8) 10/02/18 03:00 Plt Count 256 10^3/uL (140-440) 10/02/18 03:00 Immature Gran % (Auto) 0.4 % (0.0-5.0) 10/02/18 03:00 Neut % (Auto) 57.6 10/02/18 03:00 Lymph % (Auto) 30.8 (10.0-50.0) 10/02/18 03:00 [place] % (Auto) 7.5 (0-10) 10/02/18 03:00 Eos % (Auto) 3.1 % (0.0-7.0) 10/02/18 03:00 Baso % (Auto) 0.6 % (0.0-3.0) 10/02/18 03:00 Immature Gran # (Auto) 0.0 (0.0-1.0) 10/02/18 03:00 Neut # (Auto) 4.8 K/ul (2.0-6.9) 10/02/18 03:00 Lymph # (Auto) 2.6 K/uL (0.60-3.4) 10/02/18 03:00 [place] # (Auto) 0.6 K/uL (0.4-2.0) 10/02/18 03:00 Eos # (Auto) 0.3 K/ul (0.0-0.7) 10/02/18 03:00 Baso # (Auto) 0.1 K/uL (0-0.2) 10/02/18 03:00 Puncture Site R brach 10/01/18 12:40 O2 Saturation 97.0 % (95-100) 10/01/18 12:40 ABG pH 7.322 (7.35-7.45) L 10/01/18 12:40 ABG pCO2 38.8 mmHg (35-45) 10/01/18 12:40 ABG pO2 96.0 mmHg (85-100) 10/01/18 12:40 ABG HCO3 20.0 (22.0-26.0) L 10/01/18 12:40 ABG Total CO2 21 (22.0-28.0) L 10/01/18 12:40 ABG Base Excess -6 (-2.0-2.0) L 10/01/18 12:40 Giles Test + 10/01/18 12:40 FiO2 % 21.0 % 10/01/18 12:40 Sodium 138.4 mmol/L (134.5-145) 10/02/18 03:00 Potassium 3.85 mmol/L (3.5-5.1) 10/02/18 03:00 Chloride 109.2 mmol/L (98-107) H 10/02/18 03:00 Carbon Dioxide 22.7 mmol/L (22-30.0) 10/02/18 03:00 Anion Gap 10.35 10/02/18 03:00 BUN 9.7 mg/dL (7-17) 10/02/18 03:00 Creatinine 0.69 mg/dL (0.60-1.30) 10/02/18 03:00 Estimated GFR (MDRD) 89.00 mL/min 10/02/18 03:00 BUN/Creatinine Ratio 14.05 10/02/18 03:00 Glucose 178.0 mg/dL (74-106) H D 10/02/18 03:00 Hemoglobin A1c 9.24 (4.0-6.0) H 10/02/18 03:30 Lactic Acid 2.21 mmol/L (0.7-2.1) H D 10/02/18 03:00 Calcium 7.79 mg/dL (8.4-10.2) L 10/02/18 03:00 Total Bilirubin 0.14 mg/dL (0.2-1.3) L 10/02/18 03:00 AST 12.2 U/L (14-36) L 10/02/18 03:00 ALT 11.9 U/L (0-35) 10/02/18 03:00 Alkaline Phosphatase 54.3 U/L (38-126) 10/02/18 03:00 Total Creatine Kinase 100.3 U/L (30-135) 10/02/18 03:00 Troponin I < 0.012 ng/ml (0.0000-0.120) 10/01/18 11:45 Total Protein 6.28 g/dL (6.3-8.2) L 10/02/18 03:00 Albumin 3.18 g/dL (3.5-5.0) L 10/02/18 03:00 Globulin 3.10 10/02/18 03:00 Albumin/Globulin Ratio 1.02 10/02/18 03:00 Procalcitonin 0.05 ng/mL (0.09) 10/01/18 11:45 Urine Color Light (YELLOW) 10/01/18 13:00 Urine Clarity Slightly (CLEAR) 10/01/18 13:00 Urine pH 6.5 (5-9) 10/01/18 13:00 Ur Specific [place] 1.010 (1.005-1.030) 10/01/18 13:00 Urine Protein Negative (NEGATIVE) 10/01/18 13:00 Urine Glucose (UA) 2+ (NEGATIVE) 10/01/18 13:00 Urine Ketones Negative (NEGATIVE) 10/01/18 13:00 Urine Blood 2+ (NEGATIVE) 10/01/18 13:00 Urine Nitrite Negative (NEGATIVE) 10/01/18 13:00 Urine Bilirubin Negative (NEGATIVE) 10/01/18 13:00 Urine Urobilinogen 0.2 (0.2) 10/01/18 13:00 Ur Leukocyte Esterase 2+ (NEGATIVE) 10/01/18 13:00 Urine Microscopic RBC Tntc (0-2) 10/01/18 13:00 Urine Microscopic WBC Tntc (0-2) 10/01/18 13:00 Ur Squamous Epith Cells Not present (0-5) 10/01/18 13:00 Urine Bacteria 1+ (NOT PRESENT) 10/01/18 13:00 CT Chest: Atelectasis else negative CT Pelvis: Shallow decubitus ulcer. NO e/o osteo. PENDING LABS: Wound culture: Pending final. - Gram negative rods Urine culture: Pending final. Education Provided to Patient and Family: 1. Hyper/hypoglycemia s/sx. Warning with BB. - Discussed if not eating do not bolus the humalog. Discussed to consider checking sugars q 1-2 hours and giving 5-10 units and repeat in 1-2 hours. This is less likely to cause hypoglycemia. The patient noted understanding - Increase insulin from 53 units BID lantus to 55 units BID lantus. She has reported some low sugars and thus we will drop the pm dose of humalog. She is currently using with meals and correction. I will adjust this to and continue correction. Keep appt with DAWSON Yepez in 5 days. - Make eye provider appt. - If unable to eat call provider to discuss options. Do not stop lantus unless instructed. As noted above can adjust humalog and use correction only if concerned and until you can talk to provider. 2. Wound care d/w patient, keep appt with wound care this thursday. Zosyn and Vanco in ER x 1 dose. I have stopped these. Continue bactrim as OP. - F/U with wound culture as it returns. - Gram Negative rods, will continue bactrim as outpatient for now. 3. Urine culture Pending: - Will f/u with culture as this returns. - On bactrim as OP will continue this for now. 4. Weight loss highly encouraged. Follow-ups: 1. [employer] AG[facility] in next 5 days. 2. Wound Care thursday 3. Make appt with eye provider. Disposition: HOME SELF-CARE Hospital Course: 53 yr old WF 2 week history of feeling poor, wound on buttock and increased thirst. Normally on 53 units lantus BID, humalog 30 units TIDWM and correction. Presented to clinic 10/01/18 with career transition specialist w/ concern for polydipsia, fatigue and readings on machine registering [facility]. The patient came into clinic, accucheck completed and >500. I contacted ER, talked with DR. Atkinson and d/w him the case. Patient taken to ER by Giovani Garcia. ER called me around 1300 and noted that sugars >700, wound culture collected, urine culture collected, CT Chest/pelvis w/o contrast non focal, vitals stable, non SIRS, no elevated WBC. She did have negative procalcitonin, elevated lactate (may be due to hyperglycemia/hyperinsulin from adipocytes) and pseudohypocalcemia, pseudohyponatremia secondary to hypoalbumin and hyperglycemia. These corrected. He gave her insulin in ER and recommended admit, to which I accepted. She came to the floor on tele, NSR throughout ER eval. She has GCS 15, non focal neuro exam, bilateral BKA, sacral ulcer stage 2-3 monitored by wound care and on bactrim already. Given zosyn x1 in ER and vanco x 1 in ER. Upon arrival to floor, I started q 1 hour accuchecks and gave 3 units base plus correctional of 1 unit per 50 above 200. NS to continue at 125. There was some confusion over her weight/height ratio as clinic had her at 70 inches and we have her at 4'8" in hospital w/ BMI 51. This appears more accurate. I utilized adjusted weight for my calculations. Sugars steadily improved 10/01 14: 00 410, 10/01 16:00 314, 17:00 252, 18:00 299, 19:00 266, 20:00 260, 21:00 219, 22:00 165. This am sugars 00:00 187, 02:00 199, 04:00 200, 06:00 167. She has improved drastically from >700 to mid 100's, which is great. Vitals reviewed and afebrile entire stay, BP/HR stable entire stay, O2 stable entire stay. Last night when she dropped to sugar of <250, I had them add K+ to fluids and had them repeat and she was a little low at 3.3. I gave oral K+ last night and now she is improved this am to 3.85. Will d/c home with oral K+. She voided well during hospital stay, remained pleasant during hospital stay without any changes in mental status. NO urinary symptoms, no stools in hospital but no c/ o abd pain now, normal abd exam. Labs this am showed WBC dropped from 9.35 to 8.37, Hgb dropped mildly from 12.5 to 11.7 and plt 254 to 256. Lactate has dropped in 1/2 to 2.21. Calcium 7.79 w / albumin of 3.18 corrected to 8.4. A1C currently at 9.24. I encouraged MVI with her today for a few weeks with goal to have better calcium intake in diet. Discussed foods with calcium. Voids x 3, telemetry remained NSR. Sugars improved drastically. Wound culture prelim showed G- Rods, stopped vanco as no benefit. Will d/c on bactrim as I suspect e. coli contaminant and we will adjust abx per culture. Bactrim should cover UTI as well, will continue. NO sulfa allergy noted. She had CT x 2 w/o contrast, no need to stop metformin. She and I had a very lengthy discussion this am. Adjust lantus from 53units BID to 55units BID. Will adjust humalog from 30/30/30 with correction to 30/30/ 25 w/ correction. If not eating do not take bolus. Can use 5-10 units humalog per hour and check sugars every hour until you can contact provider or get seen in clinic/ER. She will get flu shot in hospital. She will make appt with eye provider and prostetist as outpatient. Continue f/u wiht wound care. She has met every parameter to be d/c at this time, glucose controlled, vitals stable, tolerating PO, good voids, no new symptoms, no cough/no e/o infection. IV abx d /c, fluids d/c as tolerating PO she can be d/c safely with f/u with DAWSON Yepez this week. Call/return to Er if needed. I checked her outpatient meds and no humalog listed. I called pharmacy 10/02/18 [facility] to check on status of the med. NO meds refilled since 03/2018. Lantus pen and humalog pen. I sent vials to pharmacy, I talked with pharmacy about changing this to [place]. I will update our record as well. Day of D/C physical exam: UNCHANGED FROM ADMIT Constitutional: Appearance-No acute distress, Consistent with stated age, talkative, hard of hearing, pleasant. Orientation- Oriented x 3, alert Gait- BKA , WC ambulates. Build and Nutrition-[morbidly obese female] General- Patient is pleasant and cooperative with the interview and exam. Integumentary: Not evaluated day of d/c FROM H+P "General-No rashes, ulcers or lesions. With nurse present skin of chest/back, axilla, groin and buttock evaluated. She has lesions x2 on buttock currently bandaged. REmoved bandage and evaluated these. 4x5 Left, 3x2 Right. Bilateral tibial tuberosity with small erosions from her prosthetic. None look overtly infected. She has minimal erythema along the rim, some yellow eschar. They are stage 2/3 on buttock and 1-2 on legs. She has erosion on legs from the prosthetic. Numerous excoriations bilateral wrists/hands from puppy. No cats reported. Palpation- Normal skin moisture/turgor. Skin is warm to touch, appropriate. Capillary refill is normal bilateral Upper extremity. Stump of bilateral BKA appears intact." ENMT: Hearing: Reported poorly but able to understand conversations. Nasal mucosa- No bleeding noted and no ulcerations observed. Dish, moist. Turbinates non boggy. Lips- normal color, moist without cracks/lesions Oral Cavity/Palate- hard/soft palate intact without lesions, oral mucosa pink and moist. Oropharynx - no pharyngeal erythema, Uvula midline. No post nasal drip. No exudate. Salivary glands- Non tender to palpation CHEST/LUNG: Inspection- symmetric chest wall no pectus deformity. Normal effort , no distress, no use of accessory muscles. Palpation- nontender sternum, ribline. No abnormal pulsations. Auscultation- Breath sounds normal throughout all lung dyson. Normal tracheal sounds, Normal bronchial sounds overlying sternum, Bronchovessicular sounds normal between scapulae posteriorly, Normal vessicular breath sounds heard throughout periphery. Lungs are clear today. Adventitious sounds- No wheezes, rales, rhonchi. CARDIOVASCULAR: Carotid artery- normal, no bruits or abnormal pulsations. Jugular vein- no pulsations. Palpation/Percussion- Normal PMI, no palpable thrill Auscultation- Regular rate and rhythm. No murmur noted in sitting, supine positions. Extremities- no digital clubbing, cyanosis, or edema of UE (BKA). ABDOMEN: Inspection- normal and no visible pulsations. Normal contour. Auscultation- Bowel sounds normal, no abdominal bruits. Palpation/Percussion- soft, non-tender, no rebound tenderness, no rigidity (guarding), no jar tenderness, no masses. Liver-no hepatomegaly, Spleen no splenomegaly, Peripheral Vascular: Upper extremity Left- Normal temperature with pink nailbeds and no ulcerations. Upper extremity Right- Normal temperature with pink nailbeds and no ulcerations. Lower extremity- unable to evaluate, s/p BKA > Musculoskeletal: Lower extremity- Hip: Not tender to palpation, no pain, no swelling, edema or erythema of surrounding tissue, normal strength and tone. Normal appearing hip ROM bilaterally without pain. Knee: Knee ROM normal. BKA bilaterally. Stumps intact other than a few abrasions/erosions. No e/o infection. No tenderness overlying trochanters, no tenderness about patella, quad tendon, Neurological: General- Moves all 4 extremities symmetrically, bilateral UE within normal limits. Bilateral LE knee flexion/extension at stump and normal hip ROM. Symmetrical face and body posture. Cranial nerves- individually evaluated II-XII and intact. PERRLA, Normal EOMI, visual/special senses appear intact, Face is symmetrical and normal sensation/movement, normal tongue, normal strength/posture of neck musculature. Reflexes- intact with DTR 2+ bicep , brachial. Strength- 5/5 bilateral UE and LE. Soft touch- intact bilateral UE and LE to the knee. Temperature sensation- intact bilateral UE and LE to the knee. Neuropsych: Oriented- Person, place, time. (AAOx3), Mood/affect- normal and congruent. Able to articulate well. Speech-Normal speech, normal rate, normal tone, normal use of language, volume and coherence. Thought content- normal with ability to perform basic computations and apply abstract thought/reason. Associations- intact, no SI/HI, no hallucinations, delusions, obsessions. Judgment/insight- Appropriate. Memory-Recall intact, remote and recent memory intact. Knowledge- Age appropriate fund of knowledge, concentration and attention span normal. Plan: D/C Home today. We talked for 20 minutes about diabetes, insulin, hyper/ hypoglycemia, need for pneumonia vaccine in 5 years, need to see eye provider q year and microalbumin (will get as outpatient q year). Total time today >30 minutes spent in discharging patient/education and review of new labs/telemetry/ nursing notes. 1. Insulin dose changes: - Lantus increased from 53 units 2x dialy to 55 units 2 x daily. - Humalog dose adjusted from 30 units TID with meals to 30 units, 30 units, 25 units and correctional insulin as done previously. 2. A1C in in hospital. - Goal A1C 7-8% for now. 3. CMP in 1 week: - potassium orally with meal once daily. 4. Multi Line Claims Adjuster/diabetic evaluation as outpatient. 5. Optometry evaluation Please make appt. 6. Flu vaccine in hospital. 7. If unable to eat, do not take the 30 units. Consider 5 units per hour and check sugars hourly until you can get seen in clinic/ER. Take lantus as usual unless a provider tells you to stop. 8. Weight loss highly encouraged. 9. Potassium dropped a little while in hospital. Oral K+ as outpatient daily until we tell you to stop. 10. CMP this week. 11. See [employer]PERATIONS AGENT [facility] this week. 12. We will follow up with wound culture and urine culture. 13. F/U in clinic or ER if worsening. Call clinic thursday if needed or can return to ER for evaluation. 14. Diet: Diabetic 1800kcal diet recommended 15. Activity: Ad quiana WC dependent. 16. Please contact [facility] to evaluate prosthetics. Personally called patient pharmacy 9:30. She has not gotten any insulin since 03/2018. Talked with pharmacist and adjusted the orders in our system to pens.
[2018-10-02] MEDS ORDERED: ATIVAN PO SCH (09:00)
[2018-10-02] MEDS ORDERED: NON-FORMULARY MEDICATION (Omeprazole [Omeprazole] 40 MG) PO SCH (09:00)
[2018-10-02] MEDS ORDERED: NON-FORMULARY MEDICATION (Bupropion Hcl [Bupropion Xl] 300 MG) PO SCH (09:00)
[2018-10-02] MEDS ORDERED: WELLBUTRIN XL PO SCH (09:00)
[2018-10-02] MEDS ORDERED: [UNRECOGNIZED DRUG - OTHER] TP SCH (09:00)
[2018-10-02] MEDS ORDERED: LOVENOX SUBCUT SCH (21:00)
== END 2018-10-02 10:10 | disposition home or self-care (01) | DRG 593 ==
LOC: ED 11:20 → SCU 12:42
PROVIDERS: ADMIT Family Medicine; ATTEND Family Medicine
DX: L89.153 Pressure ulcer of sacral region, stage 3 (principal); E87.1 Hypo-osmolality and hyponatremia; Z68.43 Body mass index [BMI] 50.0-59.9, adult; E83.51 Hypocalcemia; I10 Essential (primary) hypertension; F32.9 Major depressive disorder, single episode, unspecified; R63.1 Polydipsia; R35.8 Other polyuria; R63.2 Polyphagia; R53.81 Other malaise; Z89.512 Acquired absence of left leg below knee
CPT/HCPCS: 36415; 80053; 81001; 82550; 82803; 82962; 83036; 83605; 84132; 84145; 84484; 85025; 87040; 87070; 87081; 87086; 87186; 90686; 93005; 93010; 96365; 96372; 99223; 99239; 99284

== ENCOUNTER 2018-10-06 10:00 | Outpatient (CLI) ==
[2018-10-01 11:32] VITALS: BMI 51.3
== END 2018-10-06 10:01 | disposition home or self-care (01) ==
LOC: WOUND 10:00
PROVIDERS: ATTEND Nurse Practitioner Family
DX: L89.323 Pressure ulcer of left buttock, stage 3 (principal); L89.313 Pressure ulcer of right buttock, stage 3; E11.9 Type 2 diabetes mellitus without complications; Z79.4 Long term (current) use of insulin
CPT/HCPCS: 99214

== ENCOUNTER 2018-10-07 12:47 | Outpatient (CLI) ==
[2018-10-01 11:32] VITALS: BMI 51.3
== END 2018-10-07 12:48 | disposition home or self-care (01) ==
LOC: LAB 12:47
PROVIDERS: ATTEND Nurse Practitioner Family
DX: E11.65 Type 2 diabetes mellitus with hyperglycemia (principal); E87.6 Hypokalemia; E83.51 Hypocalcemia; I10 Essential (primary) hypertension
CPT/HCPCS: 36415; 80053

== ENCOUNTER 2018-10-26 12:06 | Outpatient (CLI) ==
[2018-10-01 11:32] VITALS: BMI 51.3
== END 2018-10-26 12:07 | disposition home or self-care (01) ==
LOC: DIETCN 12:06
PROVIDERS: ATTEND Nurse Practitioner Family
DX: E11.65 Type 2 diabetes mellitus with hyperglycemia (principal); E87.6 Hypokalemia; E83.51 Hypocalcemia; E66.01 Morbid (severe) obesity due to excess calories
CPT/HCPCS: 97802

== ENCOUNTER 2018-10-27 09:50 | Outpatient (CLI) ==
[2018-10-01 11:32] VITALS: BMI 51.3
== END 2018-10-27 09:51 | disposition home or self-care (01) ==
LOC: WOUND 09:50
PROVIDERS: ATTEND Nurse Practitioner Family
DX: L89.323 Pressure ulcer of left buttock, stage 3 (principal); L89.313 Pressure ulcer of right buttock, stage 3; E11.9 Type 2 diabetes mellitus without complications; Z79.4 Long term (current) use of insulin
CPT/HCPCS: 99212

== ENCOUNTER 2018-11-01 13:54 | Emergency (ER) ==
[2018-11-01 13:54] VITALS: BMI 51.3
[2018-11-01 14:02] VITALS: BP 145/89; TEMP 95.9
--- NOTE | 2018-11-01 15:17 | ED.PDOC ---
General ED Provider: Dr. AUSTEN ALLEN Chief Complaint: Hypoglycemia Stated Complaint: hypoglycemia Time Seen by Physician: 14:00 Mode of Arrival: Walk-In Information Source: Patient, Family Exam Limitations: No limitations Primary Care Provider: KAREN FORDE Nursing and Triage Documentation Reviewed and Agree: Yes Does patient meet sepsis criteria?: No If yes, has appropriate treatment been initiated?: No System Inflammatory Response Syndrome: Not Applicable Sepsis Protocol: For patient's 13 years and over: Temp is 96.8 and below OR 101 and greater Pulse >90 BPM Resp >20/minute Acutely Altered Mental Status Are patient's symptoms suggestive of a new infection, such as: -Pneumonia -Skin, Soft Tissue -Endocarditis -UTI -Bone, Joint Infection -Implantable Device -Acute Abdominal Infection -Wound Infection -Meningitis -Blood Stream Catheter Infection -Unknown Endocrine Complaint Exam - Diabetic Complication Complaint/Exam Onset/Duration: today facial numbness 1pm . did not eat luch (but had her inslulin) Symptoms Are: Resolved Timing: Constant Initial Severity: Mild Current Severity: Mild Character: Alert Aggravating: Reports: Diet change Alleviating: Reports: Food Associated Signs and Symptoms: Denies: Decreased LOC, Polydipsia, Polyuria, Polyphagia, Weight loss, Abdominal pain, Nausea, Vomiting, Fever, Diaphoresis, Fruity breath Related History: Reports: Similar episode Cardiac Risk Factors: Reports: DM CVA Risk Factors: Reports: Hypertension Serious Bacterial Infection Risk Factors: Reports: None Related Surgical History: Reports: None Acetone on Breath: No Dry Mucous Membranes: No Kussmaul Respirations: No Meningeal Signs: No Focal Weakness: None Focal Sensory Loss: None Gait: Normal Nystagmus Present: No Gag Reflex Present: Yes Differential Diagnoses: Hypoglycemia Review of Systems - Review Of Systems Constitutional: Reports: No symptoms Eyes: Reports: No symptoms Ears, Nose, Mouth, Throat: Reports: No symptoms Respiratory: Reports: No symptoms Cardiac: Reports: No symptoms GI: Reports: No symptoms : Reports: No symptoms Musculoskeletal: Reports: No symptoms Skin: Reports: No symptoms Neurological: Reports: No symptoms Endocrine: Reports: No symptoms Hematologic/Lymphatic: Reports: No symptoms All Other Systems: Reviewed and Negative Past Medical History - Past Medical History Previously Healthy: No Endocrine: Reports: DM 2 Cardiovascular: Reports: Hypertension Respiratory: Reports: None Hematological: Reports: None Gastrointestinal: Reports: None Genitourinary: Reports: UTI Neuro/Psych: Reports: Depression Musculoskeletal: Reports: Other (BKA ) Cancer: Reports: None Last Menstrual Period: n/a - Surgical History General Surgical History: Reports: None - Family History Family History: Reports: None - Social History Smoking Status: Never smoker Hx Substance Use: No Alcohol Screening: None Physical Exam - Physical Exam Appearance: Well-appearing, No pain distress, Well-nourished Eyes: SAMREEN, EOMI, Conjunctiva clear ENT: Ears normal, Nose normal, Oropharynx normal Respiratory: Airway patent, Breath sounds clear, Breath sounds equal, Respirations nonlabored Cardiovascular: RRR, Pulses normal, No rub, No murmur GI/: Soft, Nontender, No masses, Bowel sounds normal, No Organomegaly Musculoskeletal: Normal strength, ROM intact, No edema, No calf tenderness Skin: Warm, Dry, Normal color Neurological: Sensation intact, Motor intact, Reflexes intact, Cranial nerves intact, Alert, Oriented Psychiatric: Affect appropriate, Mood appropriate Critical Care Note - Critical Care Note Total Time (mins): 0 Course - Course Hematology/Chemistry: 11/01/18 14:27 11/01/18 14:27 Orders, Labs, Meds: Lab Review 11/01/18 11/01/18 14:27 14:27 WBC 13.68 H RBC 4.73 Hgb 13.2 Hct 41.4 MCV 87.5 MCH 27.9 MCHC 31.9 RDW Coeff of Veda 13.7 Plt Count 403 Immature Gran % (Auto) 0.3 Neut % (Auto) 69.9 Lymph % (Auto) 20.5 [place] % (Auto) 8.3 Eos % (Auto) 0.7 Baso % (Auto) 0.3 Immature Gran # (Auto) 0.0 Neut # (Auto) 9.6 H Lymph # (Auto) 2.8 [place] # (Auto) 1.1 Eos # (Auto) 0.1 Baso # (Auto) 0.0 Sodium 142.5 Potassium 4.32 Chloride 104.8 Carbon Dioxide 24.9 Anion Gap 17.12 BUN 17.7 H Creatinine 0.76 Estimated GFR (MDRD) 80.00 BUN/Creatinine Ratio 23.28 Glucose 66.7 L Calcium 9.81 Total Bilirubin 0.28 AST 22.4 ALT 13.8 Alkaline Phosphatase 57.2 Total Protein 8.53 H Albumin 4.54 Globulin 3.99 Albumin/Globulin Ratio 1.13 Orders Category Date Time Status CBC W/ AUTO DIFF Stat LAB 11/01/18 14:23 Ordered COMPREHENSIVE METABOLIC PANEL Stat LAB 11/01/18 14:23 Ordered Vital Signs: Temp Pulse Resp BP Pulse Ox 11/01/18 13:54 95.9 F L 79 20 145/89 H 98 Departure - Departure Time of Disposition: 15:19 Disposition: HOME SELF-CARE Discharge Problem: Hypoglycemia Instructions: Hypoglycemia in a Person with Diabetes (ED) Condition: Good Pt referred to PMD for follow-up: Yes IPMP verified?: No Additional Instructions: Please call your Family Physician as soon as possible to schedule a follow-up appointment. Allergies/Adverse Reactions: Allergies iodine Allergy (Verified 11/01/18 14:02) Anaphylaxis promethazine HCl [From Phenergan] Allergy (Verified 11/01/18 14:02) rash Iodinated Contrast- Oral and IV Dye Adverse Reaction (Verified 11/01/18 14:02) Home Medications: Ambulatory Orders Tizanidine HCl [Zanaflex] 4 mg PO TID 08/30/18 Lancets [Bd Ultra-Fine II] 1 each INJ QID 30 Days #1 packet 10/02/18 Potassium Chloride [K-Dur] 20 meq PO DAILYWM 30 Days #30 tab 10/02/18 Gabapentin 900 mg PO TID 10/22/18
== END 2018-11-01 15:35 | disposition home or self-care (01) ==
LOC: ED 13:54
DX: E16.2 Hypoglycemia, unspecified (principal); R20.0 Anesthesia of skin; E11.9 Type 2 diabetes mellitus without complications
CPT/HCPCS: 36415; 80053; 85025; 99283

== ENCOUNTER 2018-11-10 09:58 | Outpatient (CLI) ==
[2018-10-01 11:32] VITALS: BMI 51.3
== END 2018-11-10 09:59 | disposition home or self-care (01) ==
LOC: WOUND 09:58
PROVIDERS: ATTEND Nurse Practitioner Family
DX: L89.323 Pressure ulcer of left buttock, stage 3 (principal); L89.313 Pressure ulcer of right buttock, stage 3; E11.9 Type 2 diabetes mellitus without complications; Z79.4 Long term (current) use of insulin
CPT/HCPCS: 97597

== ENCOUNTER 2018-11-17 10:31 | Outpatient (CLI) | END 2018-11-17 10:32 | disposition home or self-care (01) | LOC: WOUND 10:31 | PROVIDERS: ATTEND Nurse Practitioner Family | DX: L89.323 Pressure ulcer of left buttock, stage 3 (principal); L89.313 Pressure ulcer of right buttock, stage 3; E11.9 Type 2 diabetes mellitus without complications; Z79.4 Long term (current) use of insulin ==

== ENCOUNTER 2018-11-24 10:28 | Outpatient (CLI) | END 2018-11-24 10:29 | disposition home or self-care (01) | LOC: WOUND 10:28 | PROVIDERS: ATTEND Nurse Practitioner Family | DX: L89.323 Pressure ulcer of left buttock, stage 3 (principal); L89.313 Pressure ulcer of right buttock, stage 3; E11.9 Type 2 diabetes mellitus without complications; Z79.4 Long term (current) use of insulin ==

== ENCOUNTER 2018-12-24 11:37 | Outpatient (CLI) | END 2018-12-24 11:38 | disposition home or self-care (01) | LOC: RHC-LAB 11:37 | PROVIDERS: ATTEND Nurse Practitioner Family | DX: E11.9 Type 2 diabetes mellitus without complications (principal) | CPT/HCPCS: 36415; 83037 ==

== ENCOUNTER 2019-01-04 11:01 | Outpatient (CLI) ==
--- NOTE | 2019-01-05 11:28 | MAMMO ---
EXAM: Digital screening mammogram with tomosynthesis HISTORY: Screening COMPARISON: None FINDINGS: Digital MLO and CC views of the right and left breast were performed. Tomosynthesis was performed. Computer aided detection utilized. There are scattered fibroglandular densities. There is no evidence for mass, asymmetry, distortion, or suspicious calcifications in either breast. IMPRESSION: 1. No evidence of malignancy in the right or left breast. 2. Annual screening mammogram is recommended in one year. BIRADS category 1, negative examination
== END 2019-01-04 11:02 | disposition home or self-care (01) ==
LOC: RAD 11:01
PROVIDERS: ATTEND Nurse Practitioner Family
DX: Z12.31 Encounter for screening mammogram for malignant neoplasm of breast (principal)

== ENCOUNTER 2019-01-21 12:19 | Outpatient (CLI) ==
--- NOTE | 2019-01-21 13:33 | DI ---
EXAM: Two views of the left shoulder. History: Left shoulder pain. Findings: No acute fracture or dislocation. No radiopaque foreign bodies. Joint spaces are relativ kirsten preserved. Impression: No acute osseous abnormality
--- NOTE | 2019-01-21 13:34 | DI ---
EXAM: Two views of the left humerus. History: Left arm pain. Findings: No acute fracture or dislocation. No abnormal calcifications or radiopaque foreign bodies . Joint spaces are relatively preserved. Impression: No acute osseous abnormality
== END 2019-01-21 12:20 | disposition home or self-care (01) ==
LOC: RAD 12:19
PROVIDERS: ATTEND Nurse Practitioner Family
DX: M25.512 Pain in left shoulder (principal); G89.29 Other chronic pain; M79.622 Pain in left upper arm

== ENCOUNTER 2019-02-10 16:58 | Outpatient (CLI) | END 2019-02-10 16:59 | disposition home or self-care (01) | LOC: RHC-LAB 16:58 → FCC-LAB 16:59 | PROVIDERS: ATTEND Nurse Practitioner Family | DX: R30.0 Dysuria (principal) | CPT/HCPCS: 87086 ==

== ENCOUNTER 2019-05-03 13:47 | Emergency (ER) ==
[2019-05-03 13:55] VITALS: BP 167/81; TEMP 99.7
[2019-05-03] MEDS ORDERED: SODIUM CHLORIDE 1,000 ML IV STA (14:30)
--- NOTE | 2019-05-03 14:30 | ED.PDOC ---
General ED Provider: Dr. RADHA SILVA Chief Complaint: Fever Stated Complaint: Pressure in lower abdomen and buning with urination Time Seen by Physician: 14:10 Mode of Arrival: Walk-In Information Source: Patient Exam Limitations: Clinical condition, Dementia Primary Care Provider: JULIO MILLS Nursing and Triage Documentation Reviewed and Agree: Yes Does patient meet sepsis criteria?: Yes If yes, has appropriate treatment been initiated?: No System Inflammatory Response Syndrome: Not Applicable Sepsis Protocol: For patient's 13 years and over: Temp is 96.8 and below OR 101 and greater Pulse >90 BPM Resp >20/minute Acutely Altered Mental Status Are patient's symptoms suggestive of a new infection, such as: -Pneumonia -Skin, Soft Tissue -Endocarditis -UTI -Bone, Joint Infection -Implantable Device -Acute Abdominal Infection -Wound Infection -Meningitis -Blood Stream Catheter Infection -Unknown Complaint Exam - UTI Female Complaint/Exam Patient Complains of: Reports: Painful urination Onset/Duration: 3 d Symptoms Are: Still present Timing: Constant Initial Severity: Moderate Current Severity: Moderate Associated Signs and Symptoms: Denies: Fever, Chills, Flank pain, Dyspareunia, Vaginal discharge Related History: Reports: Similar episode Related Surgical History: Reports: None CVA Tenderness: Yes Suprapubic Tenderness: Yes Differential Diagnoses: Bladder Dysfunction, Other (UTI) Review of Systems - Review Of Systems Constitutional: Reports: No symptoms, Fever Eyes: Reports: No symptoms Ears, Nose, Mouth, Throat: Reports: No symptoms Respiratory: Reports: No symptoms Cardiac: Reports: No symptoms GI: Reports: No symptoms, Abdominal pain : Reports: No symptoms, Burning, Dysuria, Frequency Musculoskeletal: Reports: No symptoms Skin: Reports: No symptoms Neurological: Reports: No symptoms Endocrine: Reports: No symptoms Hematologic/Lymphatic: Reports: No symptoms All Other Systems: Reviewed and Negative Past Medical History - Past Medical History Previously Healthy: No Endocrine: Reports: DM 2 Cardiovascular: Reports: Hypertension Respiratory: Reports: None Hematological: Reports: None Gastrointestinal: Reports: None Genitourinary: Reports: UTI Neuro/Psych: Reports: Depression Musculoskeletal: Reports: Other (BKA ) Cancer: Reports: None Last Menstrual Period: na - Surgical History General Surgical History: Reports: None - Family History Family History: Reports: None - Social History Smoking Status: Never smoker Hx Substance Use: No Alcohol Screening: None - Immunizations Tetanus Shot up to Date: No Physical Exam - Physical Exam Appearance: Ill-appearing, No pain distress, Well-nourished Ill-appearing: Mild Pain Distress: Mild Eyes: SAMREEN, EOMI, Conjunctiva clear ENT: Ears normal, Nose normal, Oropharynx normal Respiratory: Airway patent, Breath sounds clear, Breath sounds equal, Respirations nonlabored Cardiovascular: RRR, Pulses normal, No rub, No murmur GI/: Soft, No masses, Bowel sounds normal, No Organomegaly, Tender ( suprapubic and lt LQ-groin) Musculoskeletal: Normal strength, ROM intact, No edema, No calf tenderness Skin: Warm, Dry, Normal color Neurological: Sensation intact, Motor intact, Reflexes intact, Cranial nerves intact, Alert, Oriented Psychiatric: Affect appropriate, Mood appropriate Critical Care Note - Critical Care Note Total Time (mins): 0 Course - Course Hematology/Chemistry: 05/03/19 15:30 05/03/19 15:30 Orders, Labs, Meds: Lab Review 05/03/19 05/03/19 05/03/19 14:45 15:30 15:30 WBC 13.51 H RBC 4.60 Hgb 12.6 Hct 39.6 MCV 86.1 MCH 27.4 MCHC 31.8 RDW Coeff of Veda 14.6 Plt Count 342 Immature Gran % (Auto) 0.3 Neut % (Auto) 67.9 Lymph % (Auto) 20.7 [place] % (Auto) 10.7 H Eos % (Auto) 0.1 Baso % (Auto) 0.3 Immature Gran # (Auto) 0.0 Neut # (Auto) 9.2 H Lymph # (Auto) 2.8 [place] # (Auto) 1.5 Eos # (Auto) 0.0 Baso # (Auto) 0.0 Sodium 140.5 Potassium 3.66 Chloride 106.3 Carbon Dioxide 27.4 Anion Gap 10.46 BUN 15.0 Creatinine 0.77 Estimated GFR (MDRD) 78.00 BUN/Creatinine Ratio 19.48 Glucose 138.4 H Lactic Acid Uric Acid 4.20 Calcium 8.40 Magnesium 1.80 Total Bilirubin 0.32 AST 24.5 ALT 13.7 Alkaline Phosphatase 65.2 Total Protein 7.56 Albumin 3.99 Globulin 3.57 Albumin/Globulin Ratio 1.11 Amylase 71.1 Procalcitonin Urine Color Yellow Urine Clarity Turbid Urine pH 5.5 Ur Specific [place] 1.025 Urine Protein 2+ Urine Glucose (UA) 2+ Urine Ketones Negative Urine Blood 2+ Urine Nitrite Negative Urine Bilirubin Negative Urine Urobilinogen 0.2 Ur Leukocyte Esterase 2+ Urine Microscopic RBC 5-10 Urine Microscopic WBC Tntc Ur Squamous Epith Cells Not present Urine Bacteria 1+ Urine Yeast Trace 05/03/19 05/03/19 15:30 15:30 WBC RBC Hgb Hct MCV MCH MCHC RDW Coeff of Veda Plt Count Immature Gran % (Auto) Neut % (Auto) Lymph % (Auto) [place] % (Auto) Eos % (Auto) Baso % (Auto) Immature Gran # (Auto) Neut # (Auto) Lymph # (Auto) [place] # (Auto) Eos # (Auto) Baso # (Auto) Sodium Potassium Chloride Carbon Dioxide Anion Gap BUN Creatinine Estimated GFR (MDRD) BUN/Creatinine Ratio Glucose Lactic Acid 1.17 Uric Acid Calcium Magnesium Total Bilirubin AST ALT Alkaline Phosphatase Total Protein Albumin Globulin Albumin/Globulin Ratio Amylase Procalcitonin < 0.05 Urine Color Urine Clarity Urine pH Ur Specific [place] Urine Protein Urine Glucose (UA) Urine Ketones Urine Blood Urine Nitrite Urine Bilirubin Urine Urobilinogen Ur Leukocyte Esterase Urine Microscopic RBC Urine Microscopic WBC Ur Squamous Epith Cells Urine Bacteria Urine Yeast Orders Category Date Time Status AMYLASE Stat LAB 05/03/19 15:30 Completed BLOOD CULTURE (ED ONLY) Stat LAB 05/03/19 15:30 Received CBC W/ AUTO DIFF Stat LAB 05/03/19 15:30 Completed CMP [COMPREHENSIVE METABOLIC PANEL] Stat LAB 05/03/19 15:30 Completed LACTIC ACID Stat LAB 05/03/19 15:30 Completed MAGNESIUM Stat LAB 05/03/19 15:30 Completed PROCALCITONIN Stat LAB 05/03/19 15:30 Completed URIC ACID Stat LAB 05/03/19 15:30 Completed URINALYSIS C & S IF INDICATED Stat LAB 05/03/19 14:45 Completed URINE CULTURE Stat LAB 05/03/19 14:45 Received Nitrofurantoin Monohyd/M-Cryst [Macrobid] MEDS 05/03/19 17:52 Discontinued 100 mg PO ONCE STA Sodium Chloride 0.9% [Sodium Chloride] 1,000 ml MEDS 05/03/19 14:30 Discontinued IV BOLUS CHEST, 1V AP ONLY Stat RADS 05/03/19 14:[address] ABDOMEN/PELVIS WO CONTRAST Stat RADS 05/03/19 16:56 Completed Medications Discontinued Medications Generic Name Dose Route Start Last Admin Trade Name Odilonq PRN Reason Stop Dose Admin Sodium Chloride 1,000 mls @ 1,000 mls/hr 05/03/19 14:30 05/03/19 14:51 Sodium Chloride IV 05/03/19 15:29 1,000 mls/hr BOLUS STA Administration Nitrofurantoin Macrocrystals 100 mg 05/03/19 17:52 05/03/19 18:01 Macrobid PO 05/03/19 17:53 100 mg ONCE STA Administration Vital Signs: Temp Pulse Resp BP Pulse Ox 05/03/19 13:47 99.7 F H 98 H 16 167/81 H 94 L Departure - Departure Time of Disposition: 17:50 Disposition: HOME SELF-CARE Discharge Problem: UTI (urinary tract infection) Instructions: Urinary Tract Infection in Women (ED) Condition: Stable Pt referred to PMD for follow-up: Yes IPMP verified?: No Additional Instructions: Stay well hydrated Maintain good feminine hygeine to reduce risk of infection Take all meds Prescriptions: Nitrofurantoin Monohyd/M-Cryst [Macrobid] 100 mg PO BID #20 capsule Allergies/Adverse Reactions: Allergies iodine Allergy (Verified 05/03/19 13:57) Anaphylaxis promethazine HCl [From Phenergan] Allergy (Verified 05/03/19 13:57) rash Iodinated Contrast Media [Iodinated Contrast- Oral and IV Dye] Adverse Reaction (Verified 05/03/19 13:57) Home Medications: Ambulatory Orders Tizanidine HCl [Zanaflex] 4 mg PO TID 08/30/18 Lancets [Bd Ultra-Fine II] 1 each INJ QID 30 Days #1 packet 10/02/18 Gabapentin 900 mg PO TID 10/22/18 Hydrocodone/Acetaminophen [[place] 10-325 Tablet] 1 each PO TID PRN 01/21/19 Nitrofurantoin Monohyd/M-Cryst [Macrobid] 100 mg PO BID #20 capsule 05/03/19 Disposition Discussed With: Patient, Family
--- NOTE | 2019-05-03 15:51 | DI ---
EXAM: Chest one view HISTORY: Abdominal cramping and dysuria COMPARISON: None TECHNIQUE: Single view of the chest was performed FINDINGS: Low lung volumes. No definite consolidation. There is no pleural effusion or pneumothora x. The heart is normal in size. The mediastinal contour is normal. There are no acute abnormalitie s of the bones. IMPRESSION: Low lung volumes. No definite acute cardiopulmonary process
--- NOTE | 2019-05-03 17:25 | CT ---
Exam orally CT scan of the abdomen pelvis without contrast. Date: 05/03/2019. Comparison: None. HISTORY: New onset left lower quadrant pain. TECHNIQUE: Helical scan of the abdomen pelvis was performed without contrast. FINDINGS: The lung bases are clear. No acute osseous abnormalities are seen. The spleen and liver have a uniform attenuation. A cholecystectomy is noted. The stomach, pancreas and adrenal glands are normal. The kidneys have a normal morphology. There is a 0.8 x 0.3 cm nonobs tructing calculus in the lower pole of the right kidney. There are nonobstructing calculi in the low er pole left kidney that range in size up to 0.5 cm. There is no hydronephrosis. No retroperitoneal adenopathy is present. Aorta has peripheral calcification and does not exceed 3 cm. The small perico l is normal. The colon, pelvic sidewall and bladder are normal. There is no free pelvic fluid. The uterus, rectum inguinal regions are normal. Impression: No acute findings in the abdomen or pelvis. Bilateral nonobstructing nephrolithiasis. Cholecystectomy.
[2019-05-03] MEDS ORDERED: MACROBID PO STA (17:52)
== END 2019-05-03 18:15 | disposition home or self-care (01) ==
LOC: ED 13:47
DX: N39.0 Urinary tract infection, site not specified (principal); E11.9 Type 2 diabetes mellitus without complications; I10 Essential (primary) hypertension; Z87.440 Personal history of urinary (tract) infections
CPT/HCPCS: 36415; 80053; 81001; 82150; 82962; 83605; 83735; 84145; 84550; 85025; 87040; 87086; 96360; 99283

== ENCOUNTER 2019-05-04 10:08 | Outpatient (CLI) | END 2019-05-04 10:09 | disposition home or self-care (01) | LOC: WOUND 10:08 | PROVIDERS: ATTEND Nurse Practitioner Family | DX: L89.322 Pressure ulcer of left buttock, stage 2 (principal); E11.9 Type 2 diabetes mellitus without complications; Z79.4 Long term (current) use of insulin ==

== ENCOUNTER 2019-05-11 09:44 | Outpatient (CLI) | END 2019-05-11 09:45 | disposition home or self-care (01) | LOC: WOUND 09:44 | PROVIDERS: ATTEND Nurse Practitioner Family | DX: L89.322 Pressure ulcer of left buttock, stage 2 (principal); Z79.4 Long term (current) use of insulin; E11.9 Type 2 diabetes mellitus without complications ==

== ENCOUNTER 2019-05-18 09:53 | Outpatient (CLI) | END 2019-05-18 09:54 | disposition home or self-care (01) | LOC: WOUND 09:53 | PROVIDERS: ATTEND Nurse Practitioner Family | DX: L89.322 Pressure ulcer of left buttock, stage 2 (principal); E11.9 Type 2 diabetes mellitus without complications; Z79.4 Long term (current) use of insulin | CPT/HCPCS: 99213; 99214 ==

== ENCOUNTER 2020-01-23 12:45 | Inpatient (IN) ==
[2020-01-23] MEDS ORDERED: TYLENOL PO STA (13:00)
[2020-01-23] MEDS ORDERED: ZOSYN 3.375 GM 3.375 GM in SODIUM CHLORIDE 50 ML IV STA (13:00)
[2020-01-23] MEDS ORDERED: LACTATED RINGERS 1,000 ML IV STA (13:00)
--- NOTE | 2020-01-23 13:08 | ED.PDOC ---
General ED Provider: Dr. ERNESTO XIONG MD Chief Complaint: Fever Stated Complaint: mild to mod fever today, hx sacral decube, mild left hip ache pain, no injury, hx bilateral bka Time Seen by Physician: 13:06 Mode of Arrival: Ambulance Information Source: Patient and EMT Primary Care Provider: JULIO MILLS APRN, FNP-BC Nursing and Triage Documentation Reviewed and Agree: Yes Does patient meet sepsis criteria?: No System Inflammatory Response Syndrome: Not Applicable Sepsis Protocol: For patient's 13 years and over: Temp is 96.8 and below OR 101 and greater Pulse >90 BPM Resp >20/minute Acutely Altered Mental Status Are patient's symptoms suggestive of a new infection, such as: -Pneumonia -Skin, Soft Tissue -Endocarditis -UTI -Bone, Joint Infection -Implantable Device -Acute Abdominal Infection -Wound Infection -Meningitis -Blood Stream Catheter Infection -Unknown Miscellaneous Complaint Exam Febrile Illness/Adult Complaint/Exam Onset/Duration: today Symptoms Are: Still present Timing: Constant Initial Severity: Moderate Current Severity: Moderate Associated Signs and Symptoms: Denies Headache, Short of air, Cough and Vomiting Review of Systems Review Of Systems Constitutional: Reports Fever and Malaise Eyes: Denies Vision change Ears, Nose, Mouth, Throat: Reports Throat pain; Denies Nose discharge Respiratory: Denies Cough and Short of air Cardiac: Denies Chest pain GI: Denies Abdominal pain : Denies Dysuria Musculoskeletal: Denies Neck pain Skin: Reports Lesions; Denies Cyanosis Neurological: Denies Cognitive dysfunction All Other Systems: Other [facility] Medical History (Updated 01/23/20 @ 16:18 by Faveous SCHEDULING AGENT) Blister of buttock Cataract Cellulitis of buttock, left Decubitus ulcer Diabetes mellitus Diabetes mellitus type 2, uncontrolled Essential (primary) hypertension H/O lithotripsy Incontinence of urine in female Pressure ulcer of buttock Pressure ulcer of left buttock, stage 1 S/P bilateral BKA (below knee amputation) Stage II pressure ulcer of buttock Urinary incontinence Urinary tract infection Visit for screening mammogram Family History Other Unknown family medical history Social History Smoking and tobacco status: Former smoker Tobacco: How many years used: 10 Passive smoking exposure: Yes Second hand smoke exposure: Yes Smoking risk assessment performed: No Alcohol intake: never Counseling given: No Substance use type: does not use Counseling given: No Cora/methodist: Rastafari Special cora needs: No Agree to transfusion: Yes Adopted: Yes Caregiver/support person: Yes Household members: spouse Housing: house Lives independently: Yes Number of children: 0 Highest education level completed: some college, no degree Financial difficulty paying for basics: not applicable service: No residential: No Current occupational status: unemployed and disabled Current occupational exposures/hazards: No Previous occupational history: [employer] Pets and animals: Yes Leisure activites: reading History of recent travel: No Sexually active: No Do you think of yourself as: straight/heterosexual Current gender identity: female Seatbelt use: always Helmet use: No Drives intoxicated or rides with intoxicated line 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 truck 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: No Water heater temperature set < 120 degrees: Yes Working smoke detector in home: Yes Fire extinguisher in home: Yes Carbon monoxide detector in home: Yes Firearms in home: No Female Reproductive History Menstrual Age of Menarche: 13 Hx Hysterectomy: Yes Hx Tubal Ligation: No Physical Exam Physical Exam Appearance: Reports No pain distress Ill-appearing: None Pain Distress: None Eyes: Reports EOMI and Conjunctiva clear ENT: Reports Oropharynx normal Neck: Supple Respiratory: Reports Airway patent and Breath sounds clear Cardiovascular: Reports RRR GI/: Reports Soft and Nontender Musculoskeletal: Reports No edema Skin: Reports Warm (+sacral decube) Neurological: Reports Alert and Oriented Psychiatric: Reports Affect appropriate Interpretation Radiology Interpretation Radiology Interpretation By: Radiologist Radiology Results: No acute changes Exam Interpreted: CXR EKG Interpretation Time of EKG #1: 14:41 Rate: Normal Rhythm: Sinus Ectopy: None Interpretation: no stemi Re-Evaluation Re-Evaluation Time of Re-Evaluation: 14:25 Status: Improved Vital Signs Stable: Yes Appearance: NAD Neuro: Alert and Oriented X3 Additional Comments: admit d/w [place], tissue perfusion reassessment, vss, cap refill less than 2 seconds Critical Care Note Critical Care Note Total Time (mins): 0 Course Course Hematology/Chemistry: 01/23/20 13:53 01/23/20 13:53 Orders, Labs, Meds: Lab Review 01/23/20 01/23/20 01/23/20 13:15 13:53 13:53 WBC 15.93 H RBC 4.22 Hgb 11.1 L Hct 34.7 L MCV 82.2 MCH 26.3 L MCHC 32.0 RDW Coeff of Veda 15.1 H Plt Count 347 Immature Gran % (Auto) 1.1 Neut % (Auto) 81.0 H Lymph % (Auto) 10.4 [place] % (Auto) 6.9 Eos % (Auto) 0.3 Baso % (Auto) 0.3 Immature Gran # (Auto) 0.2 Neut # (Auto) 12.9 H Lymph # (Auto) 1.7 [place] # (Auto) 1.1 Eos # (Auto) 0.1 Baso # (Auto) 0.0 Puncture Site R brach O2 Saturation 94.0 L ABG pH 7.442 ABG pCO2 34.7 L ABG pO2 68.0 L ABG HCO3 23.7 ABG Total CO2 25 ABG Base Excess 0 Giles Test + FiO2 % 21.0 Sodium 132.8 L Potassium 3.99 Chloride 95.1 L Carbon Dioxide 26.4 Anion Gap 15.29 BUN 25.3 H Creatinine 1.34 H Estimated GFR (MDRD) 41.00 BUN/Creatinine Ratio 18.88 Glucose 339.4 H Lactic Acid Calcium 9.12 Total Bilirubin 0.42 AST 35.8 ALT 13.5 Alkaline Phosphatase 107.5 Total Protein 7.58 Albumin 3.51 Globulin 4.07 Albumin/Globulin Ratio 0.86 Procalcitonin Urine Color Urine Clarity Urine pH Ur Specific [place] Urine Protein Urine Glucose (UA) Urine Ketones Urine Blood Urine Nitrite Urine Bilirubin Urine Urobilinogen Ur Leukocyte Esterase Urine Microscopic WBC Ur Squamous Epith Cells SARS-CoV-2 RNA (RT-PCR) 01/23/20 01/23/20 01/23/20 13:53 13:53 13:55 WBC RBC Hgb Hct MCV MCH MCHC RDW Coeff of Veda Plt Count Immature Gran % (Auto) Neut % (Auto) Lymph % (Auto) [place] % (Auto) Eos % (Auto) Baso % (Auto) Immature Gran # (Auto) Neut # (Auto) Lymph # (Auto) [place] # (Auto) Eos # (Auto) Baso # (Auto) Puncture Site O2 Saturation ABG pH ABG pCO2 ABG pO2 ABG HCO3 ABG Total CO2 ABG Base Excess Giles Test FiO2 % Sodium Potassium Chloride Carbon Dioxide Anion Gap BUN Creatinine Estimated GFR (MDRD) BUN/Creatinine Ratio Glucose Lactic Acid 2.01 Calcium Total Bilirubin AST ALT Alkaline Phosphatase Total Protein Albumin Globulin Albumin/Globulin Ratio Procalcitonin 1.59 Urine Color Urine Clarity Urine pH Ur Specific [place] Urine Protein Urine Glucose (UA) Urine Ketones Urine Blood Urine Nitrite Urine Bilirubin Urine Urobilinogen Ur Leukocyte Esterase Urine Microscopic WBC Ur Squamous Epith Cells SARS-CoV-2 RNA (RT-PCR) 01/23/20 14:29 WBC RBC Hgb Hct MCV MCH MCHC RDW Coeff of Veda Plt Count Immature Gran % (Auto) Neut % (Auto) Lymph % (Auto) [place] % (Auto) Eos % (Auto) Baso % (Auto) Immature Gran # (Auto) Neut # (Auto) Lymph # (Auto) [place] # (Auto) Eos # (Auto) Baso # (Auto) Puncture Site O2 Saturation ABG pH ABG pCO2 ABG pO2 ABG HCO3 ABG Total CO2 ABG Base Excess Giles Test FiO2 % Sodium Potassium Chloride Carbon Dioxide Anion Gap BUN Creatinine Estimated GFR (MDRD) BUN/Creatinine Ratio Glucose Lactic Acid Calcium Total Bilirubin AST ALT Alkaline Phosphatase Total Protein Albumin Globulin Albumin/Globulin Ratio Procalcitonin Urine Color Yellow Urine Clarity Cloudy Urine pH 5.5 Ur Specific [place] 1.020 Urine Protein 2+ H Urine Glucose (UA) Negative Urine Ketones Negative Urine Blood 2+ H Urine Nitrite Negative Urine Bilirubin Negative Urine Urobilinogen 0.2 Ur Leukocyte Esterase 3+ H Urine Microscopic WBC Tntc Ur Squamous Epith Cells Not present SARS-CoV-2 RNA (RT-PCR) Orders Category Date Time Status ABG DRAW REQUEST Stat CARDIO 01/23/20 13:04 Completed EKG-(ED ONLY) Stat CARDIO 01/23/20 14:27 Completed OXYGEN Routine CARDIO 01/23/20 14:30 Active ACTIVITY .Complete BR CARE 01/23/20 14:29 Active BLOOD GLUCOSE MONITORING ACCUCHECK Q6H CARE 01/23/20 14:29 Active GIVE HS SNACK 2100 CARE 01/23/20 14:30 Active INTAKE & OUTPUT Q8HR CARE 01/23/20 14:29 Active VITAL SIGNS Q8HR CARE 01/23/20 14:29 Active ADA 1800 OSIRIS. DIET DIETARY 01/23/20 Dinner Ordered HS SNACK DIETARY 01/23/20 Dinner Ordered ED APPLY O2 .ONCE EMERGENCY 01/23/20 13:02 Active ED LEGAL ADMINISTRATOR APPLIED .ONCE EMERGENCY 01/23/20 13:02 Active ABG Stat LAB 01/23/20 13:15 Completed BLOOD CULTURE Stat LAB 01/23/20 14:15 Received CBC W/ AUTO DIFF Stat LAB 01/23/20 13:53 Completed COMPREHENSIVE METABOLIC PANEL Stat LAB 01/23/20 13:53 Completed COVID19, PCR IDPH Stat LAB 01/23/20 13:55 Completed LACTIC ACID Stat LAB 01/23/20 13:53 Completed MOLECULAR GROUP A STREP Stat LAB 01/23/20 13:50 Completed PROCALCITONIN Stat LAB 01/23/20 13:53 Completed URINALYSIS C & S IF INDICATED Stat LAB 01/23/20 14:29 Completed URINE CULTURE Stat LAB 01/23/20 14:42 Received Acetaminophen [Tylenol] MEDS 01/23/20 13:00 Discontinued 650 mg PO ONCE STA Acetaminophen [Tylenol] MEDS 01/23/20 14:29 Active 650 mg PO Q4H PRN Insulin Regular, Human [Humulin R] MEDS 01/23/20 14:28 Discontinued 3 unit SUBCUT ONCE STA Piperacillin Sodium/Tazobactam [Zosyn 3.375 gm] 3.375 MEDS 01/23/20 13:00 Discontinued gm 0.9 % Sodium Chloride [Sodium Chloride] 50 ml IV ONCE Ringers Lactated Solution [Lactated Ringers] 1,000 ml MEDS 01/23/20 13:00 Discontinued IV BOLUS Sodium Chloride 0.9% [Sodium Chloride] 1,000 ml MEDS 01/23/20 14:30 Active IV 75 mls/hr RESUSCITATION STATUS Routine OTHERS 01/23/20 14:29 Ordered CHEST, 2 VIEWS PA & LAT Stat RADS 01/23/20 13:02 Completed HIP, LEFT 2 VIEWS Stat RADS 01/23/20 13:00 Completed Medications Generic Name Dose Route Start Last Admin Trade Name Freq PRN Reason Stop Dose Admin Acetaminophen 650 mg 01/23/20 14:29 Tylenol PO Q4H PRN Mild Pain Hydrocodone Bitart/Acetaminophen 1 tab 01/23/20 16:00 [place] 10-325 PO TID PRN Pain Buspirone HCl 15 mg 01/23/20 21:00 Buspar PO BID [facility] Enoxaparin Sodium 40 mg 01/23/20 18:00 Lovenox SUBCUT DAILY [facility] Gabapentin 600 mg 01/23/20 21:00 Neurontin PO TID GABI Gabapentin 200 mg 01/23/20 21:00 Neurontin PO TID GABI Sodium Chloride 1,000 mls @ 75 mls/hr 01/23/20 14:30 01/23/20 17:29 Sodium Chloride IV Not Given .[id number] GABI Sodium Chloride 500 mls @ 100 mls/hr 01/23/20 16:30 01/23/20 17:29 Sodium Chloride IV 100 mls/hr .Q5H GABI Administration Insulin Glargine 60 unit 01/23/20 21:00 Lantus SUBCUT BEDTIME GABI Insulin Human Lispro 30 unit 01/23/20 17:00 01/23/20 17:27 Humalog SUBCUT 30 unit TIDAC GABI Administration Insulin Human Regular 0 unit 01/23/20 17:32 Humulin R SUBCUT PRN PRN Hyperglycemia Protocol Metoprolol Tartrate 25 mg 01/23/20 21:00 Lopressor PO BID [facility] Sertraline HCl 150 mg 01/24/20 09:00 Zoloft PO DAILY [facility] Simvastatin 10 mg 01/24/20 09:00 Zocor PO DAILY [facility] Tizanidine HCl 4 mg 01/23/20 21:00 Zanaflex PO TID [facility] Discontinued Medications Generic Name Dose Route Start Last Admin Trade Name Freq PRN Reason Stop Dose Admin Acetaminophen 650 mg 01/23/20 13:00 01/23/20 13:49 Tylenol PO 01/23/20 13:01 650 mg ONCE STA Administration Lactated Ringer's 1,000 mls @ 1,000 mls/hr 01/23/20 13:00 01/23/20 13:49 Lactated Ringers IV 01/23/20 13:59 1,000 mls/hr BOLUS STA Administration Piperacillin Sod/Tazobactam 50 mls @ 50 mls/hr 01/23/20 13:00 01/23/20 14:12 Sod 3.375 gm/ Sodium Chloride IV 01/23/20 13:59 50 mls/hr ONCE STA Administration Sodium Chloride 250 mls @ 250 mls/hr 01/23/20 16:07 01/23/20 17:14 Sodium Chloride IV 01/23/20 17:06 Not Given BOLUS ONE Insulin Human Regular 3 unit 01/23/20 14:28 01/23/20 14:43 Humulin R SUBCUT 01/23/20 14:29 3 unit ONCE STA Administration Non-Formulary Medication 800 mg 01/23/20 21:00 Gabapentin PO TID [facility] Vital Signs: Temp Pulse Resp BP Pulse Ox 01/23/20 12:45 101.1 F H 83 20 86/48 L 91 L Discharge Plan Discharge Patient Disposition: ADMITTED INPATIENT Discharge Problem: Sepsis Qualifiers: Sepsis type: sepsis due to unspecified organism Sepsis acute organ dysfunction status: unspecified Qualified Code(s): A41.9 - Sepsis, unspecified organism ED Provider: ERNESTO XIONG Condition: Fair Discharge Date/Time: 01/23/20 15:00
--- NOTE | 2020-01-23 13:54 | DI ---
EXAM: Chest two views HISTORY: Fever COMPARISON: 05/03/2019 TECHNIQUE: Two views of the chest were performed FINDINGS: Low lung volumes. Linear subsegmental atelectasis in the right mid lung. No definite con solidation. There is no pleural effusion or pneumothorax. The heart is normal in size. The mediast inal contour is normal. There are no acute abnormalities of the bones. IMPRESSION: Low lung volumes. Linear subsegmental atelectasis right midlung. No definite consolida tion.
--- NOTE | 2020-01-23 13:55 | DI ---
EXAM: Left hip two-view HISTORY: Left hip pain COMPARISON: None FINDINGS: No fracture or dislocation. Mild narrowing left hip joint. No focal soft tissue abnormalit y. Surgical clips left pelvis. IMPERSSION: Lumbar no fracture or dislocation. 2. Mild osteoarthritis left hip
[2020-01-23 14:01] LABS: HEMATOCRIT 34.7 % (37.0-47.0)
[2020-01-23] MEDS ORDERED: HUMULIN R SUBCUT STA (14:28)
[2020-01-23] MEDS ORDERED: TYLENOL PO PRN (14:29)
[2020-01-23 15:42] VITALS: BMI 56.2
[2020-01-23] MEDS ORDERED: SODIUM CHLORIDE 250 ML IV ONE (16:07)
[2020-01-23] MEDS: SODIUM CHLORIDE 1,000 ML IV SCH ×2 (16:18→17:29)
--- NOTE | 2020-01-23 16:20 | PCM ---
Chief Complaint Chief Complaint: fever History of Present Illness History of Present Illness: Mrs. Desouza is a 54 year old female with past medical history of diabetes w/insulin therapy, HTN, urinary incontinence, overactive bladder, dyslipidemia, and depression who presents to the emergency by ambulance with c/o fever and not feeling well. In ED temp 101.1, BP 86/48, ABG 7.44 PCO2 34 PO2 68 HCO3 23.7, glucose 339 anion gap 15.9, BUN 25.3 Cr 1.34, CXR without acute process, decubitus ulcer on left buttock. Pt is given fluid bolus, tylenol; BCx obtained, throat cx, UA obtained and sent for culture and started on zosyn. Pt also swabbed for covid 19. Pt is admitted to hospital medicine service for further care. Pt is interviewed and examined in the isolation room on [facility] floor in full PPE. Pt is alert, very hard of hearing didn't bring her hearing aides. Pt states her sxs started 2 days ago on thursday. Pt states she was not feeling well and had some chills. Pt has a caregiver and her cares for her. Pt states she was recently on cephalexin for her wound on her buttock. She took it for 5 days then stopped because she developed a sore throat and pain "all across my stomach". She thought the antibiotics were the cause so she stopped them on thursday. She says she has been being seen at wound care for a wound on her left buttock area. States the wound started as a blister which eventually ruptured on its own. Her caregiver was instructed to apply a cream that was gotten from the wound care center. She feels the area is getting better. 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 Pt states when she developed fever she called PCP office, Nicci Patel, and was directed to go to emergency. Pt states she had left BKA in 2008 after having a non healing wound and osteomyelitis. She had right BKA in 2017 for same reasons. Review of Systems Constitutional: Reports fever, chills and fatigue Eyes: Denies blurred vision, double-vision, discharge, itching, pain, redness, photophobia and other Ears: Reports hearing loss (forgot her hearing aides) Throat: Reports pain Mouth: Denies bleeding, pain, swelling and other Respiratory: Denies cough, shortness of air, wheeze, hemoptysis, pain with breathing and other Cardiovascular: Denies chest pain, left arm pain, diaphoresis, PND, orthopnea, edema, palpitations, syncope and other Gastrointestinal: Denies abdominal pain, nausea, vomiting, diarrhea, melena, hematemesis, hematochezia, dysphagia, constipation and other Genitourinary: Reports incontinence Neurological: Reports other (neuropathy and phamton limb pain) Skin: Reports wounds (left buttock near sacral area) Hematology: Denies easy bruising, easy bleeding, swollen glands and other Endocrine: Denies weight changes, cold intolerance, heat intolerance, excessive thirst, excessive hunger, polyuria and other Psychiatric: Reports depression Allergies Allergies Allergy/AdvReac Type Severity Reaction Status Date / Time iodine Allergy Anaphylaxis Verified 01/23/20 12:56 promethazine HCl Allergy rash Verified 01/23/20 12:56 [From Phenergan] empagliflozin AdvReac Intermediate frequent Verified 01/23/20 12:56 [From Jardiance] UTI's Iodinated Contrast Media AdvReac Verified 01/23/20 12:56 [Iodinated Contrast- Oral and IV Dye] [facility] Medical History Blister of buttock Cataract Cellulitis of buttock, left Decubitus ulcer Diabetes mellitus type 2, uncontrolled Essential (primary) hypertension H/O lithotripsy Pressure ulcer of buttock Pressure ulcer of left buttock, stage 1 S/P bilateral BKA (below knee amputation) Stage II pressure ulcer of buttock Urinary incontinence Urinary tract infection Visit for screening mammogram Surgical History bilateral knee amputation Status post appendectomy Status post cholecystectomy Status post hysterectomy Status post tonsillectomy Family History Other Unknown family medical history Social History Smoking and tobacco status: Former smoker Tobacco: How many years used: 10 Passive smoking exposure: Yes Second hand smoke exposure: Yes Smoking risk assessment performed: No Alcohol intake: never Counseling given: No Substance use type: does not use Counseling given: No Cora/jew: Yazidism Special cora needs: No Agree to transfusion: Yes Adopted: Yes Caregiver/support person: Yes Household members: spouse Housing: house Lives independently: Yes Number of children: 0 Highest education level completed: some college, no degree Financial difficulty paying for basics: not applicable service: No penitentiary: No Current occupational status: unemployed and disabled Current occupational exposures/hazards: No Previous occupational history: [employer] Pets and animals: Yes Leisure activites: reading History of recent travel: No Sexually active: No Do you think of yourself as: straight/heterosexual Current gender identity: female Seatbelt use: always Helmet use: No Drives intoxicated or rides with intoxicated 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 Water heater temperature set < 120 degrees: Yes Working smoke detector in home: Yes Fire extinguisher in home: Yes Carbon monoxide detector in home: Yes Firearms in home: No Medications Medications: Medications Generic Name Dose Route Start Last Admin Trade Name Freq PRN Reason Stop Dose Admin Acetaminophen 650 mg 01/23/20 14:29 Tylenol PO Q4H PRN Mild Pain Hydrocodone Bitart/Acetaminophen 1 tab 01/23/20 16:00 Currie 10-325 PO TID PRN Pain Buspirone HCl 15 mg 01/23/20 21:00 Buspar PO BID GABI Sodium Chloride 1,000 mls @ 75 mls/hr 01/23/20 14:30 Sodium Chloride IV .[id number] GABI Sodium Chloride 250 mls @ 250 mls/hr 01/23/20 16:07 Sodium Chloride IV 01/23/20 17:06 BOLUS ONE Sodium Chloride 500 mls @ 100 mls/hr 01/23/20 16:30 Sodium Chloride IV .Q5H [facility] Insulin Glargine 60 unit 01/23/20 21:00 Lantus SUBCUT BEDTIME GABI Metoprolol Tartrate 25 mg 01/23/20 21:00 Lopressor PO BID GABI Non-Formulary Medication 800 mg 01/23/20 21:00 Gabapentin PO TID GABI Non-Formulary Medication 30 unit 01/23/20 21:00 Insulin Lispro [Humalog Kwikpen Insulin] SUBCUT TID GABI Sertraline HCl 150 mg 01/24/20 09:00 Zoloft PO DAILY GABI Simvastatin 0 mg 01/23/20 16:00 Zocor PO .COMPLEX GABI Tizanidine HCl 4 mg 01/23/20 21:00 Zanaflex PO TID GABI Body Composition Height: 4 ft 3 in Weight: 207 lb 14.334 oz Body Mass Index (BMI): 56.2 Vital Signs Temperature: 97.8 F Pulse Rate: 75 Respiratory Rate: 16 Blood Pressure: 86/48 O2 Sat by Pulse Oximetry: 97 Physical Examination Ill-appearing: Mild Pain Distress: None Eyes: Reports SAMREEN, EOMI and Conjunctiva clear ENT: Reports Ears normal (hard of hearing not wearing her hearing aides) and Exudate (pt with slight redness to posterior pharynx; also noted creamy white thick substance on back of tongue and soft palate) Neck: Supple Respiratory: Reports Airway patent, Breath sounds clear and Respirations nonlabored Cardiovascular: Reports RRR and Pulses normal GI/: Reports Soft, Bowel sounds normal, No Organomegaly and Tender (over suprapubic area) Musculoskeletal: Reports ROM intact and No edema Skin: Reports Warm, Dry and Normal color Neurological: Reports Alert and Oriented Psychiatric: Reports Affect appropriate and Mood appropriate Lab/Tests/Diagnostic Imaging Lab/Tests/Diagnostic Imaging: Lab Review 01/23/20 01/23/20 01/23/20 13:15 13:53 13:53 WBC 15.93 H RBC 4.22 Hgb 11.1 L Hct 34.7 L MCV 82.2 MCH 26.3 L MCHC 32.0 RDW Coeff of Veda 15.1 H Plt Count 347 Immature Gran % (Auto) 1.1 Neut % (Auto) 81.0 H Lymph % (Auto) 10.4 Tyrrell % (Auto) 6.9 Eos % (Auto) 0.3 Baso % (Auto) 0.3 Immature Gran # (Auto) 0.2 Neut # (Auto) 12.9 H Lymph # (Auto) 1.7 Tyrrell # (Auto) 1.1 Eos # (Auto) 0.1 Baso # (Auto) 0.0 Puncture Site R brach O2 Saturation 94.0 L ABG pH 7.442 ABG pCO2 34.7 L ABG pO2 68.0 L ABG HCO3 23.7 ABG Total CO2 25 ABG Base Excess 0 Giles Test + FiO2 % 21.0 Sodium 132.8 L Potassium 3.99 Chloride 95.1 L Carbon Dioxide 26.4 Anion Gap 15.29 BUN 25.3 H Creatinine 1.34 H Estimated GFR (MDRD) 41.00 BUN/Creatinine Ratio 18.88 Glucose 339.4 H Lactic Acid Calcium 9.12 Total Bilirubin 0.42 AST 35.8 ALT 13.5 Alkaline Phosphatase 107.5 Total Protein 7.58 Albumin 3.51 Globulin 4.07 Albumin/Globulin Ratio 0.86 Procalcitonin Urine Color Urine Clarity Urine pH Ur Specific [place] Urine Protein Urine Glucose (UA) Urine Ketones Urine Blood Urine Nitrite Urine Bilirubin Urine Urobilinogen Ur Leukocyte Esterase Urine Microscopic WBC Ur Squamous Epith Cells SARS-CoV-2 RNA (RT-PCR) 01/23/20 01/23/20 01/23/20 13:53 13:53 13:55 WBC RBC Hgb Hct MCV MCH MCHC RDW Coeff of Veda Plt Count Immature Gran % (Auto) Neut % (Auto) Lymph % (Auto) Tyrrell % (Auto) Eos % (Auto) Baso % (Auto) Immature Gran # (Auto) Neut # (Auto) Lymph # (Auto) Tyrrell # (Auto) Eos # (Auto) Baso # (Auto) Puncture Site O2 Saturation ABG pH ABG pCO2 ABG pO2 ABG HCO3 ABG Total CO2 ABG Base Excess Giles Test FiO2 % Sodium Potassium Chloride Carbon Dioxide Anion Gap BUN Creatinine Estimated GFR (MDRD) BUN/Creatinine Ratio Glucose Lactic Acid 2.01 Calcium Total Bilirubin AST ALT Alkaline Phosphatase Total Protein Albumin Globulin Albumin/Globulin Ratio Procalcitonin 1.59 Urine Color Urine Clarity Urine pH Ur Specific [place] Urine Protein Urine Glucose (UA) Urine Ketones Urine Blood Urine Nitrite Urine Bilirubin Urine Urobilinogen Ur Leukocyte Esterase Urine Microscopic WBC Ur Squamous Epith Cells SARS-CoV-2 RNA (RT-PCR) 01/23/20 14:29 WBC RBC Hgb Hct MCV MCH MCHC RDW Coeff of Veda Plt Count Immature Gran % (Auto) Neut % (Auto) Lymph % (Auto) Tyrrell % (Auto) Eos % (Auto) Baso % (Auto) Immature Gran # (Auto) Neut # (Auto) Lymph # (Auto) Tyrrell # (Auto) Eos # (Auto) Baso # (Auto) Puncture Site O2 Saturation ABG pH ABG pCO2 ABG pO2 ABG HCO3 ABG Total CO2 ABG Base Excess Giles Test FiO2 % Sodium Potassium Chloride Carbon Dioxide Anion Gap BUN Creatinine Estimated GFR (MDRD) BUN/Creatinine Ratio Glucose Lactic Acid Calcium Total Bilirubin AST ALT Alkaline Phosphatase Total Protein Albumin Globulin Albumin/Globulin Ratio Procalcitonin Urine Color Yellow Urine Clarity Cloudy Urine pH 5.5 Ur Specific [place] 1.020 Urine Protein 2+ H Urine Glucose (UA) Negative Urine Ketones Negative Urine Blood 2+ H Urine Nitrite Negative Urine Bilirubin Negative Urine Urobilinogen 0.2 Ur Leukocyte Esterase 3+ H Urine Microscopic WBC Tntc Ur Squamous Epith Cells Not present SARS-CoV-2 RNA (RT-PCR) Orders Category Date Time Status [facility] AD[facility]ION 01/23/20 14:56 Active ABG DRAW REQUEST Stat CARDIO 01/23/20 13:04 Completed EKG-(ED ONLY) Stat CARDIO 01/23/20 14:27 Completed OXYGEN Routine CARDIO 01/23/20 14:30 Active ACTIVITY .Complete BR CARE 01/23/20 14:29 Active BLOOD GLUCOSE MONITORING ACCUCHECK Q6H CARE 01/23/20 14:29 Active GIVE HS SNACK 2100 CARE 01/23/20 14:30 Active INTAKE & OUTPUT Q8HR CARE 01/23/20 14:29 Active TELEMETRY MONITORING TELE CARE 01/23/20 14:56 Active VITAL SIGNS Q8HR CARE 01/23/20 14:29 Active ADA 1800 OSIRIS. 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 .ONCE EMERGENCY 01/23/20 13:02 Active ED VITAL SIGNS Q1HR EMERGENCY 01/23/20 13:02 Active ABG Stat LAB 01/23/20 13:15 Completed BASIC METABOLIC PANEL Timed LAB 01/24/20 06:00 Ordered BLOOD CULTURE Stat LAB 01/23/20 14:15 Received CBC W/ AUTO DIFF Stat LAB 01/23/20 13:53 Completed CBC W/ AUTO DIFF Timed LAB 01/24/20 06:00 Ordered COMPREHENSIVE METABOLIC PANEL Stat LAB 01/23/20 13:53 Completed COVID19, PCR IDPH Stat LAB 01/23/20 13:55 Completed LACTIC ACID Stat LAB 01/23/20 13:53 Completed MOLECULAR GROUP A STREP Stat LAB 01/23/20 13:50 Completed PROCALCITONIN Stat LAB 01/23/20 13:53 Completed URINALYSIS C & S IF INDICATED Stat LAB 01/23/20 14:29 Completed URINE CULTURE Stat LAB 01/23/20 14:42 Received 0.9 % Sodium Chloride [Sodium Chloride] 250 ml MEDS 01/23/20 16:07 Active IV BOLUS Acetaminophen [Tylenol] MEDS 01/23/20 13:00 Discontinued 650 mg PO ONCE STA Acetaminophen [Tylenol] MEDS 01/23/20 14:29 Active 650 mg PO Q4H PRN Buspirone HCl [Buspar] MEDS 01/23/20 21:00 Ordered 15 mg PO BID Hydrocodone Bit/Acetaminophen [Currie 10-325] MEDS 01/23/20 16:00 Active 1 tab PO TID PRN Insulin Glargine,Hum.rec.anlog [Lantus] MEDS 01/23/20 21:00 Ordered 60 unit SUBCUT BEDTIME Insulin Regular, Human [Humulin R] MEDS 01/23/20 14:28 Discontinued 3 unit SUBCUT ONCE STA Metoprolol Tartrate [Lopressor] MEDS 01/23/20 21:00 Active 25 mg PO BID Piperacillin Sodium/Tazobactam [Zosyn 3.375 gm] 3.375 MEDS 01/23/20 13:00 Discontinued gm 0.9 % Sodium Chloride [Sodium Chloride] 50 ml IV ONCE Ringers Lactated Solution [Lactated Ringers] 1,000 ml MEDS 01/23/20 13:00 Discontinued IV BOLUS Sertraline HCl [Zoloft] MEDS 01/24/20 09:00 Active 150 mg PO DAILY Simvastatin [Zocor] MEDS 01/23/20 16:00 Ordered See Dose Instructions PO .COMPLEX Sodium Chloride 0.9% [Sodium Chloride] 1,000 ml MEDS 01/23/20 14:30 Active IV 75 mls/hr Sodium Chloride 0.9% [Sodium Chloride] 500 ml MEDS 01/23/20 16:30 Ordered IV 100 mls/hr Tizanidine HCl [Zanaflex] MEDS 01/23/20 21:00 Active 4 mg PO TID gabapentin MEDS 01/23/20 21:00 Ordered 800 mg PO TID insulin lispro [Humalog KwikPen Insulin] MEDS 01/23/20 21:00 Ordered 30 unit SUBCUT TID RESUSCITATION STATUS Routine OTHERS 01/23/20 14:29 Ordered CHEST, 2 VIEWS PA & LAT Stat RADS 01/23/20 13:02 Completed HIP, LEFT 2 VIEWS Stat RADS 01/23/20 13:00 Completed Medications Generic Name Dose Route Start Last Admin Trade Name Kalia PRN Reason Stop Dose Admin Acetaminophen 650 mg 01/23/20 14:29 Tylenol PO Q4H PRN Mild Pain Hydrocodone Bitart/Acetaminophen 1 tab 01/23/20 16:00 Currie 10-325 PO TID PRN Pain Buspirone HCl 15 mg 01/23/20 21:00 Buspar PO BID GABI Sodium Chloride 1,000 mls @ 75 mls/hr 01/23/20 14:30 Sodium Chloride IV .[id number] GABI Sodium Chloride 250 mls @ 250 mls/hr 01/23/20 16:07 Sodium Chloride IV 01/23/20 17:06 BOLUS ONE Sodium Chloride 500 mls @ 100 mls/hr 01/23/20 16:30 Sodium Chloride IV .Q5H [facility] Insulin Glargine 60 unit 01/23/20 21:00 Lantus SUBCUT BEDTIME [facility] Metoprolol Tartrate 25 mg 01/23/20 21:00 Lopressor PO BID [facility] Non-Formulary Medication 800 mg 01/23/20 21:00 Gabapentin PO TID GABI Non-Formulary Medication 30 unit 01/23/20 21:00 Insulin Lispro [Humalog Kwikpen Insulin] SUBCUT TID [facility] Sertraline HCl 150 mg 01/24/20 09:00 Zoloft PO DAILY [facility] Simvastatin 0 mg 01/23/20 16:00 Zocor PO .COMPLEX GABI Tizanidine HCl 4 mg 01/23/20 21:00 Zanaflex PO TID [facility] Discontinued Medications Generic Name Dose Route Start Last Admin Trade Name Kalia PRN Reason Stop Dose Admin Acetaminophen 650 mg 01/23/20 13:00 01/23/20 13:49 Tylenol PO 01/23/20 13:01 650 mg ONCE STA Administration Lactated Ringer's 1,000 mls @ 1,000 mls/hr 01/23/20 13:00 01/23/20 13:49 Lactated Ringers IV 01/23/20 13:59 1,000 mls/hr BOLUS STA Administration Piperacillin Sod/Tazobactam 50 mls @ 50 mls/hr 01/23/20 13:00 01/23/20 14:12 Sod 3.375 gm/ Sodium Chloride IV 01/23/20 13:59 50 mls/hr ONCE STA Administration Insulin Human Regular 3 unit 01/23/20 14:28 01/23/20 14:43 Humulin R SUBCUT 01/23/20 14:29 3 unit ONCE STA Administration Assessment (1) Sepsis: Status: Acute Code(s): A41.9 - Sepsis, unspecified organism SNOMED Code(s): 43246229 Qualifiers: Sepsis acute organ dysfunction status: unspecified Sepsis type: sepsis due to unspecified organism Qualified Code(s): A41.9 - Sepsis, unspecified organism (2) Pressure ulcer of left buttock, stage 1: Status: Acute Code(s): L89.321 - Pressure ulcer of left buttock, stage 1 SNOMED Code(s): 479686238 (3) Uncontrolled diabetes mellitus: Status: Acute Code(s): E11.9 - Type 2 diabetes mellitus without complications SNOMED Code(s): 102415385 (4) S/P bilateral BKA (below knee amputation): Status: Acute Code(s): Z89.512 - Acquired absence of left leg below knee; Z89.511 - Acquired absence of right leg below knee SNOMED Code(s): 923587567 (5) BMI 50.0-59.9, adult: Status: Acute Code(s): Z68.43 - Body mass index (BMI) 50.0-59.9, adult SNOMED Code(s): 748659662 (6) Hyperglycemia: Status: Acute Code(s): R73.9 - Hyperglycemia, unspecified SNOMED Code(s): 08067713 (7) Diabetes mellitus: Status: Acute Code(s): E11.9 - Type 2 diabetes mellitus without complications SNOMED Code(s): 32204974 (8) Essential (primary) hypertension: Status: Acute Code(s): I10 - Essential (primary) hypertension SNOMED Code(s): 95723969 (9) Incontinence of urine in female: Status: Acute Code(s): R32 - Unspecified urinary incontinence SNOMED Code(s): 652283523 Plan Plan: sepsis, fever, hypotension, RR 21, possible source of wound -fever 101.1 on admission improved with tylenol and fluids -pt received fluid bolus in ED; will repeat 1 liter saline bolus, then maintenance fluids -UA 3+leukocyte esterase, may be source of sepsis -cont zosyn; BCx, throat cx, UCx, covid 19 test pending -continue telemetry, oxygen therapy, tylenol HTN -BP low currently; hold metoprolol; cont to monitor DM w/insulin therapy, uncontrolled -hgbA1c 11.24 11/2019 -hold januvia and metformin -wound on left buttock healing with scab in place, no fluctuance or purulent drainage noted or able to be expressed -cont home lantus and lispro dosing; add SSI; frequent glucose checks, hypoglycemia protocol diabetic neuropathy/phamton limb pain/chronic pain -cont home gabapentin, zanaflex and hydrocodone 10/325mg TID prn depression -cont buspirone DVT PPx: lovenox CODE: full
[2020-01-23] MEDS: HUMALOG SUBCUT SCH (17:27)
[2020-01-23] MEDS: SODIUM CHLORIDE 500 ML IV SCH (17:29)
[2020-01-23] MEDS ORDERED: HUMULIN R SUBCUT PRN (17:32)
[2020-01-23] MEDS: LOVENOX SUBCUT SCH (19:07)
[2020-01-23] MEDS: BUSPAR PO SCH (20:31)
[2020-01-23] MEDS: LANTUS SUBCUT SCH (20:33)
[2020-01-23] MEDS: LOPRESSOR PO SCH (20:34)
[2020-01-23] MEDS: ZANAFLEX PO SCH (20:34)
[2020-01-23] MEDS: NEURONTIN PO SCH ×2 (20:35→20:36)
[2020-01-23] MEDS ORDERED: NON-FORMULARY MEDICATION (Tizanidine [Zanaflex] 4 MG) PO SCH (21:00)
[2020-01-23] MEDS ORDERED: INSULIN LISPRO 30 UNIT SUBCUT SCH (21:00)
[2020-01-23] MEDS ORDERED: NON-FORMULARY MEDICATION (Gabapentin 800 MG) PO SCH (21:00)
[2020-01-24] MEDS: SODIUM CHLORIDE 1,000 ML IV SCH ×4 (01:59→19:12)
[2020-01-24] MEDS: SODIUM CHLORIDE 500 ML IV SCH ×2 (02:00→19:12)
[2020-01-24] MEDS: HUMALOG SUBCUT SCH ×3 (05:46→17:17)
[2020-01-24] MEDS: ZOSYN 3.375 GM 3.375 GM in SODIUM CHLORIDE 50 ML IV SCH ×4 (09:21→23:12)
[2020-01-24] MEDS: BUSPAR PO SCH ×2 (09:24→20:22)
[2020-01-24] MEDS: NEURONTIN PO SCH ×6 (09:25→20:22)
[2020-01-24] MEDS: NORCO 10-325 PO PRN (09:26)
[2020-01-24] MEDS: LOPRESSOR PO SCH ×2 (09:27→09:33)
[2020-01-24] MEDS: ZANAFLEX PO SCH ×3 (09:27→20:22)
[2020-01-24] MEDS: ZOCOR PO SCH (09:27)
[2020-01-24] MEDS: ZOLOFT PO SCH (09:28)
[2020-01-24] MEDS: LOVENOX SUBCUT SCH (09:33)
[2020-01-24] MEDS: CALMOSEPTINE OINTMENT TP SCH ×4 (12:30→20:23)
--- NOTE | 2020-01-24 12:59 | PCM.PROG ---
Date Seen by Provider: 01/24/20 Time Seen by Provider: 08:02 Subjective: Pt supine on bed. states she feels a little better today. still c/o sore throat. not eating breakfast due to sorethroat. denies nausea or abdominal pain. denies chest pain or feeling short of breath. Objective: Vitals: T=99.1 F, P=76, R=16, BP=88/50, SPO2=99 HEENT: [PERRLA EOMs intact no icterus whitish exudate noted in posterior pharynx] Neck: [supple] Lungs: [increased work of breathing; no retractions currently; on vapotherm; inspiratory and expiratory wheezes; L>R; no rales] CVS: [RRR S1S2] Abdomen: [large protuberant bowel sounds present soft non tender no HSM] Extremities: [bilat BKA; UE peripheral pulses present] Neurological: [neuropathy phamtom limb pain] Skin: [left buttock wound now "wet" appearing no pus draining or able to be expressed] Lab/Tests/Diagnostic Imaging: [] (1) Sepsis: Status: Acute Code(s): A41.9 - Sepsis, unspecified organism SNOMED Code(s): 44912096 (2) Pressure ulcer of left buttock, stage 1: Status: Acute Code(s): L89.321 - Pressure ulcer of left buttock, stage 1 SNOMED Code(s): 649922709 (3) Uncontrolled diabetes mellitus: Status: Acute Code(s): E11.9 - Type 2 diabetes mellitus without complications SNOMED Code(s): 463682995 (4) S/P bilateral BKA (below knee amputation): Status: Acute Code(s): Z89.512 - Acquired absence of left leg below knee; Z89.511 - Acquired absence of right leg below knee SNOMED Code(s): 238154118 (5) BMI 50.0-59.9, adult: Status: Acute Code(s): Z68.43 - Body mass index (BMI) 50.0-59.9, adult SNOMED Code(s): 631707608 (6) Hyperglycemia: Status: Acute Code(s): R73.9 - Hyperglycemia, unspecified SNOMED Code(s): 11013851 (7) Diabetes mellitus: Status: Acute Code(s): E11.9 - Type 2 diabetes mellitus without complications SNOMED Code(s): 05067105 (8) Essential (primary) hypertension: Status: Acute Code(s): I10 - Essential (primary) hypertension SNOMED Code(s): 66259415 (9) Incontinence of urine in female: Status: Acute Code(s): R32 - Unspecified urinary incontinence SNOMED Code(s): 046890233 Plan: sepsis, resolved -afebrile; BP and RR improved; wbc 11.75 trending down, BUN 21.7 Cr 0.89 improved -cont maintenance fluids -strept cx negative; still w/sorethroat possible candidiasis -UCx gm neg rods; await senstivity and de-escalate abx therapy as appropriate -cont zosyn; BCx, covid 19 test pending -continue telemetry, oxygen therapy, tylenol HTN -hypotension continues; cont to hold metoprolol and cont IV fluids; monitor DM w/insulin therapy, uncontrolled -hgbA1c 11.24 11/2019 -improving glucose 135 this morning -cont to hold januvia and metformin -cont home lantus and lispro dosing; add SSI; frequent glucose checks, hypoglycemia protocol decubitis left buttock, stage 1 -wound appears "wet" today; no fluctuance or prurulent drainage noted or able to be expressed; pt is incontinent of urine -try to keep clean and dry; applying barrier cream -records review reveals that pt seen twice in october for clellulitis/lesion on buttock; again in december for lesion on left buttock. was started on bactrim. told to keep clean and use barrier cream after changing adult diaper after episodes of incontinence. pts caregiver was also told how to care for area as well as pt. oral candidiasis -magic mouthwash swish and swallow started diabetic neuropathy/phamtom limb pain/chronic pain -cont home gabapentin, zanaflex and hydrocodone 10/325mg TID prn depression -cont buspirone DVT PPx: lovenox CODE: full
[2020-01-24] MEDS: MAGIC MOUTHWASH PO SCH ×3 (14:55→20:22)
[2020-01-24] MEDS: LANTUS SUBCUT SCH (20:23)
[2020-01-25 05:32] LABS: HEMATOCRIT 31.7 % (37.0-47.0)
[2020-01-25] MEDS: SODIUM CHLORIDE 1,000 ML IV SCH ×2 (06:08→19:42)
[2020-01-25] MEDS: ZOSYN 3.375 GM 3.375 GM in SODIUM CHLORIDE 50 ML IV SCH ×3 (06:08→17:20)
[2020-01-25] MEDS: HUMALOG SUBCUT SCH ×3 (06:08→17:21)
[2020-01-25] MEDS: MAGIC MOUTHWASH PO SCH ×4 (06:08→20:52)
[2020-01-25] MEDS: ZOCOR PO SCH (09:39)
[2020-01-25] MEDS: ZOLOFT PO SCH (09:39)
[2020-01-25] MEDS: ZANAFLEX PO SCH ×3 (09:39→20:18)
[2020-01-25] MEDS: NEURONTIN PO SCH ×6 (09:40→20:19)
[2020-01-25] MEDS: BUSPAR PO SCH ×2 (09:40→20:18)
[2020-01-25] MEDS: NORCO 10-325 PO PRN (09:41)
[2020-01-25] MEDS: CALMOSEPTINE OINTMENT TP SCH ×4 (09:42→20:20)
[2020-01-25] MEDS: LOVENOX SUBCUT SCH (09:43)
[2020-01-25] MEDS ORDERED: ZOFRAN 4 MG/2 ML IVP PRN (10:06)
--- NOTE | 2020-01-25 10:53 | PCM.PROG ---
Date Seen by Provider: 01/25/20 Time Seen by Provider: 09:53 Subjective: Pt states she is feeling about the same as when she first came to ER but better since she had some N/V x 1 today which came after using her magic mouthwash but she did swallow this instead of spitting it in a cup. Pt states she has not had any fevers. She has had night sweats for a while and last night was one of the worse. Pt denies any pain at this time. She is able to perform ADLs at home and admits to urinary and occasional stool incontinence. Pt states that her DM has not done very well. I did educate her on keeping a food log so that she can present this to her provider so that a better understanding is achieved when discussing her DM and management. Objective: Vitals: T=98.1 F, P=90, R=8, KM=403/61, SPO2=96 HEENT: No nasal drainage or discharge Neck: soft, no lymphadenopathy Lungs: clear, no labored breathing CVS: RRR< no rubs, clicks, or murmurs Abdomen: soft, non-tender Extremities: Bilateral BKA with occasional phantom pain (but not at this time), no edema of the stumps or arms Neurological: able to move all extremities Skin: Buttock has a stage I decube on the left and a small 2 cm x 1 cm stage II decube on the right buttocks. Pt states no pain and that she turns herself side to side about 3 times a day. She was encouraged to turn about every 2 hours while laying down. Lab/Tests/Diagnostic Imaging: [] (1) Sepsis: Status: Acute Code(s): A41.9 - Sepsis, unspecified organism SNOMED Code(s): 17273957 (2) Pressure ulcer of left buttock, stage 1: Status: Acute Code(s): L89.321 - Pressure ulcer of left buttock, stage 1 SNOMED Code(s): 711315193 (3) Uncontrolled diabetes mellitus: Status: Acute Code(s): E11.9 - Type 2 diabetes mellitus without complications SNOMED Code(s): 477652516 (4) S/P bilateral BKA (below knee amputation): Status: Acute Code(s): Z89.512 - Acquired absence of left leg below knee; Z89.511 - Acquired absence of right leg below knee SNOMED Code(s): 097450850 (5) BMI 50.0-59.9, adult: Status: Acute Code(s): Z68.43 - Body mass index (BMI) 50.0-59.9, adult SNOMED Code(s): 972744291 (6) Hyperglycemia: Status: Acute Code(s): R73.9 - Hyperglycemia, unspecified SNOMED Code(s): 81257820 (7) Diabetes mellitus: Status: Acute Code(s): E11.9 - Type 2 diabetes mellitus without complications SNOMED Code(s): 39036320 (8) Essential (primary) hypertension: Status: Acute Code(s): I10 - Essential (primary) hypertension SNOMED Code(s): 24449246 (9) Incontinence of urine in female: Status: Acute Code(s): R32 - Unspecified urinary incontinence SNOMED Code(s): 418393386 Plan: [address] [address] Inpatient PHYSICIAN PROGRESS NOTE : [id number] Signed Patient: DOMINIQUE MONACO ANNAcct:[id number]: [id number] : 1965Loc: [facility] Age/Sex: 54 / FADM Status: ADM INADM Date: 01/23/20 Date Seen by Provider: 01/24/20 Time Seen by Provider: 08:02 Subjective: Pt supine on bed. states she feels a little better today. still c/o sore throat. not eating breakfast due to sorethroat. denies nausea or abdominal pain. denies chest pain or feeling short of breath. Objective: Vitals: T=99.1 F, P=76, R=16, BP=88/50, SPO2=99 HEENT: [PERRLA EOMs intact no icterus whitish exudate noted in posterior pharynx] Neck: [supple] Lungs: [increased work of breathing; no retractions currently; on vapotherm; inspiratory and expiratory wheezes; L>R; no rales] CVS: [RRR S1S2] Abdomen: [large protuberant bowel sounds present soft non tender no HSM] Extremities: [bilat BKA; UE peripheral pulses present] Neurological: [neuropathy phamtom limb pain] Skin: [left buttock wound now "wet" appearing no pus draining or able to be expressed] Lab/Tests/Diagnostic Imaging: [] (1) Sepsis: Status: Acute Code(s): A41.9 - Sepsis, unspecified organism SNOMED Code(s): 90872308 (2) Pressure ulcer of left buttock, stage 1: Status: Acute Code(s): L89.321 - Pressure ulcer of left buttock, stage 1 SNOMED Code(s): 197123009 (3) Uncontrolled diabetes mellitus: Status: Acute Code(s): E11.9 - Type 2 diabetes mellitus without complications SNOMED Code(s): 333289011 (4) S/P bilateral BKA (below knee amputation): Status: Acute Code(s): Z89.512 - Acquired absence of left leg below knee; Z89.511 - Acquired absence of right leg below knee SNOMED Code(s): 651746838 (5) BMI 50.0-59.9, adult: Status: Acute Code(s): Z68.43 - Body mass index (BMI) 50.0-59.9, adult SNOMED Code(s): 123772567 (6) Hyperglycemia: Status: Acute Code(s): R73.9 - Hyperglycemia, unspecified SNOMED Code(s): 29923733 (7) Diabetes mellitus: Status: Acute Code(s): E11.9 - Type 2 diabetes mellitus without complications SNOMED Code(s): 25015649 (8) Essential (primary) hypertension: Status: Acute Code(s): I10 - Essential (primary) hypertension SNOMED Code(s): 86178847 (9) Incontinence of urine in female: Status: Acute Code(s): R32 - Unspecified urinary incontinence SNOMED Code(s): 648133009 Plan: sepsis -afebrile; BP remains low, RR improved; WBC trending rhys -cont maintenance fluids -strept cx negative -UCx gm neg rods; E coli on Zosyn -Blood Cx pending, COVID-19 negative -continue telemetry, oxygen therapy, Tylenol HTN -hypotension continues; cont to hold metoprolol and cont IV fluids; monitor DM w/insulin therapy, uncontrolled -hgbA1c 11.24 11/2019 -glucose continues to improve -cont to hold januvia and metformin -cont home lantus and lispro dosing; SSI continues; frequent glucose checks, hypoglycemia protocol decubitis left buttock, stage II -incontinent of urine and once in a while stool, continue barrier cream, encourage Q2H turns. -records review reveals that pt seen twice in october for clellulitis/lesion on buttock; again in december for lesion on left buttock. was started on bactrim. told to keep clean and use barrier cream after changing adult diaper after episodes of incontinence. pts caregiver was also told how to care for area as well as pt. Pt states that she is able to perform ADLs. oral candidiasis -magic mouthwash swish and swallow started diabetic neuropathy/phantom limb pain/chronic pain, doing well today. -cont home gabapentin, zanaflex and hydrocodone 10/325mg TID prn depression -cont buspirone Will consider DC home in 1-2 days. DVT PPx: lovenox CODE: full
[2020-01-25] MEDS: LANTUS SUBCUT SCH (20:51)
[2020-01-26] MEDS: ZOSYN 3.375 GM 3.375 GM in SODIUM CHLORIDE 50 ML IV SCH ×4 (00:10→17:23)
[2020-01-26] MEDS: SODIUM CHLORIDE 1,000 ML IV SCH ×4 (00:15→19:57)
[2020-01-26] MEDS: NORCO 10-325 PO PRN ×3 (02:27→22:14)
[2020-01-26] MEDS: HUMALOG SUBCUT SCH ×3 (05:56→17:26)
[2020-01-26] MEDS: MAGIC MOUTHWASH PO SCH ×4 (06:03→20:28)
[2020-01-26] MEDS: CALMOSEPTINE OINTMENT TP SCH ×4 (08:10→20:27)
[2020-01-26] MEDS: NEURONTIN PO SCH ×6 (08:11→20:26)
[2020-01-26] MEDS: BUSPAR PO SCH ×2 (08:12→20:24)
[2020-01-26] MEDS: ZOCOR PO SCH (08:15)
[2020-01-26] MEDS: ZANAFLEX PO SCH ×3 (08:16→20:25)
[2020-01-26] MEDS: ZOLOFT PO SCH (08:16)
[2020-01-26] MEDS: LOVENOX SUBCUT SCH (08:17)
--- NOTE | 2020-01-26 08:26 | PCM.PROG ---
Date Seen by Provider: 01/26/20 Time Seen by Provider: 08:16 Subjective: Pt states she feels better today though her left buttocks is still a bit sore. Pt is a bit [place] however when informed about DC instructions and plan she nodded and stated she understood. Pt did ask me to talk with her sister which I did so that she as well is informed about DC planning. Pt denies SOB, no CP, no leg pain at this time, no abdominal issues. Pt did have an episode of sweating this AM which can be related to a time difference of insulin administration and time breakfast was served. Glucose at that time was reported to be 54 mg/dL with Pt being alert and oriented. Palmer juice, a cracker, and peanut butter were given and resulting glucose about 20 minutes later was reported to be 114 mg/dL. The issue of time difference between insulin administration and meals being served was addressed with nursing staff, nursing services manager, and pharmacy. Objective: Vitals: T=97.9 F, P=79, R=16, DS=357/76, SPO2=96 HEENT: no nasal drainage or discharge Neck: soft, no lymphadenopathy Lungs: clear all dyson, no SOB CVS: RRR, no rubs, clicks, murmurs noted Abdomen: soft, non-tender, normal bowel sounds Extremities: BKA as noted previously, no edema Neurological: alert and oriented X 4 Skin: Bactroban added for Stage II ulcer left buttocks which does look a little better today, Pt again encouraged to turn every 2 hours and she was instructed how to place pillows to help maintain a lesser pressure on her buttocks. She was also informed to alert staff if she became incontinent of urine and or stool. Lab/Tests/Diagnostic Imaging: [] (1) Sepsis: Status: Acute Code(s): A41.9 - Sepsis, unspecified organism SNOMED Code(s): 12765655 (2) Pressure ulcer of left buttock, stage 1: Status: Acute Code(s): L89.321 - Pressure ulcer of left buttock, stage 1 SNOMED Code(s): 829609451 (3) Uncontrolled diabetes mellitus: Status: Acute Code(s): E11.9 - Type 2 diabetes mellitus without complications SNOMED Code(s): 634327908 (4) S/P bilateral BKA (below knee amputation): Status: Acute Code(s): Z89.512 - Acquired absence of left leg below knee; Z89.511 - Acquired absence of right leg below knee SNOMED Code(s): 350011530 (5) BMI 50.0-59.9, adult: Status: Acute Code(s): Z68.43 - Body mass index (BMI) 50.0-59.9, adult SNOMED Code(s): 679153343 (6) Hyperglycemia: Status: Acute Code(s): R73.9 - Hyperglycemia, unspecified SNOMED Code(s): 40012511 (7) Diabetes mellitus: Status: Acute Code(s): E11.9 - Type 2 diabetes mellitus without complications SNOMED Code(s): 33305861 (8) Essential (primary) hypertension: Status: Acute Code(s): I10 - Essential (primary) hypertension SNOMED Code(s): 64201657 (9) Incontinence of urine in female: Status: Acute Code(s): R32 - Unspecified urinary incontinence SNOMED Code(s): 388269830 Plan: Sepsis: -Afebrile, BP normalized, RR WNL, SpO2 WNL, Today is day 3 of IV Zosyn -Cont maintenance fluids, Pt is able to take PO fluids at this time -Strept cx negative, COVID-19 NEGATIVE -UCx E coli on Zosyn, will keep Pt overnight d/t uncontroled DM (comorbidities) for another day plus of IV Ab, Intend on DC tomorrow afternoon with Bactrim DS for UTI -Blood Cx pending, COVID-19 negative -continue telemetry, oxygen therapy, Tylenol HTN -Normalized today; Cont to hold metoprolol; monitor DM w/insulin therapy, uncontrolled -hgbA1c 11.24 11/2019 -glucose was improving but does fluctuate some, today 155 mg/dL -cont to hold januvia and metformin -cont home lantus and lispro dosing; SSI continues; frequent glucose checks, hypoglycemia protocol -Pt will need to f/u with PCP, would benefit from Diabetic Education and possib ly Net Software Engineer (do not believe there is one in the area she lives) Decubitis left buttock, stage II -incontinent of urine and once in a while stool, continue barrier cream, encourage Q2H turns. -records review reveals that pt seen twice in October for cellulites/lesion on buttock; again in december for lesion on left buttock. was started on bactrim. told to keep clean and use barrier cream after changing adult diaper after episodes of incontinence. pts caregiver was also told how to care for area as well as pt. Pt states that she is able to perform ADLs. -Adding Bactroban today for the Stage II ulcer Oral candidiasis -magic mouthwash swish and swallow started -Continue diabetic neuropathy/phantom limb pain/chronic pain, doing well today. -cont home gabapentin, zanaflex and hydrocodone 10/325mg TID prn depression -cont buspirone Will consider DC home in 1-2 days. DVT PPx: lovenox CODE: full DC Planning: Bactrim DS to finish a 5 day Ab course d/t comorbidities and the UTI likely being cause of her Sepsis, close f/u with PCP 3 days, Diabetic Education prior to DC home.
[2020-01-26] MEDS: BACTROBAN TP SCH ×2 (11:34→20:23)
[2020-01-26] MEDS: LANTUS SUBCUT SCH (20:15)
[2020-01-27] MEDS: ZOSYN 3.375 GM 3.375 GM in SODIUM CHLORIDE 50 ML IV SCH ×3 (00:04→12:54)
[2020-01-27] MEDS: NORCO 10-325 PO PRN (04:37)
[2020-01-27] MEDS: SODIUM CHLORIDE 1,000 ML IV SCH (06:09)
[2020-01-27] MEDS: MAGIC MOUTHWASH PO SCH ×3 (06:28→16:41)
[2020-01-27 07:52] LABS: HEMATOCRIT 35.5 % (37.0-47.0)
[2020-01-27] MEDS: NEURONTIN PO SCH ×4 (08:45→15:03)
[2020-01-27] MEDS: LOVENOX SUBCUT SCH (08:45)
[2020-01-27] MEDS: BACTROBAN TP SCH (08:46)
[2020-01-27] MEDS: ZOCOR PO SCH (08:46)
[2020-01-27] MEDS: ZANAFLEX PO SCH ×2 (08:46→15:04)
[2020-01-27] MEDS: ZOLOFT PO SCH (08:46)
[2020-01-27] MEDS: BUSPAR PO SCH (08:46)
[2020-01-27] MEDS: CALMOSEPTINE OINTMENT TP SCH ×3 (08:47→16:42)
[2020-01-27] MEDS: HUMALOG SUBCUT SCH ×3 (08:50→18:12)
[2020-01-27 14:08] VITALS: BP 122/80; TEMP 97.1
--- NOTE | 2020-01-27 16:01 | PCM.DC ---
Final Diagnosis: Sepsis d/t UTI, Pressure ulcer left buttock, Stage II. DM uncontrolled, HTN (1) Sepsis: Status: Acute Code(s): A41.9 - Sepsis, unspecified organism SNOMED Code(s): 32242137 Qualifiers: Sepsis acute organ dysfunction status: unspecified Sepsis type: sepsis due to unspecified organism Qualified Code(s): A41.9 - Sepsis, unspecified organism (2) Pressure ulcer of left buttock, stage 1: Status: Acute Code(s): L89.321 - Pressure ulcer of left buttock, stage 1 SNOMED Code(s): 757787486 (3) Uncontrolled diabetes mellitus: Status: Acute Code(s): E11.9 - Type 2 diabetes mellitus without complications SNOMED Code(s): 213812672 (4) S/P bilateral BKA (below knee amputation): Status: Acute Code(s): Z89.512 - Acquired absence of left leg below knee; Z89.511 - Acquired absence of right leg below knee SNOMED Code(s): 764534784 (5) BMI 50.0-59.9, adult: Status: Acute Code(s): Z68.43 - Body mass index (BMI) 50.0-59.9, adult SNOMED Code(s): 788188259 (6) Hyperglycemia: Status: Acute Code(s): R73.9 - Hyperglycemia, unspecified SNOMED Code(s): 15202493 (7) Diabetes mellitus: Status: Acute Code(s): E11.9 - Type 2 diabetes mellitus without complications SNOMED Code(s): 92689745 (8) Essential (primary) hypertension: Status: Acute Code(s): I10 - Essential (primary) hypertension SNOMED Code(s): 09274363 (9) Incontinence of urine in female: Status: Acute Code(s): R32 - Unspecified urinary incontinence SNOMED Code(s): 250306998 Reason for Hospitalization: Sepsis, UTI, HTN, DM Prognosis at Discharge: good however halfway depends on Pt's willingness to control her DM better. Condition at Discharge: stable Medications at Discharge: Ambulatory Orders Medication Instructions Recorded tizanidine [Zanaflex] 4 mg PO TID 08/30/18 blood sugar diagnostic [Onetouch #100 ea 11/19/18 Ultra Blue Test Strp] hydrocodone-acetaminophen [Morrison 1 ea PO TID PRN 01/21/19 10-325 Tablet] blood-glucose meter [Onetouch #1 ea 02/10/19 Verio] lancets #1 bx 07/29/19 lancets 30 gauge #1 packet 07/29/19 metoprolol tartrate 25 mg tablet 25 mg PO BID 30 Days #60 tab-cap 11/17/19 sertraline 50 mg tablet 150 mg PO QDAY #90 tab 11/18/19 metformin 500 mg tablet See Rx Instructions .ROUTE 12/14/19 .COMPLEX #180 unknown measurement unit code: not specified simvastatin 20 mg tablet See Rx Instructions .ROUTE 12/14/19 .COMPLEX #90 unknown measurement unit code: not specified sitagliptin 100 mg tablet 100 mg PO DAILY #90 tab 12/15/19 gabapentin 800 mg tablet 800 mg PO TID 01/06/20 insulin glargine 100 unit/mL (3 60 unit SUBCUT BEDTIME ml 01/06/20 mL) subcutaneous pen insulin lispro 100 unit/mL 30 unit SUBCUT TID ml 01/06/20 subcutaneous pen buspirone 15 mg tablet 15 mg PO BID 30 Days #60 tab-cap 01/13/20 clindamycin HCl 300 mg capsule 300 mg PO BID 7 Days #14 cap 01/19/20 Education Provided to Patient and Family: Diabetic Diet handout, UTI. Follow-ups: PCP and Musculoskeletal Physiotherapist if she has one. Discharge Disposition: Home Hospital Course: Pts sepsis was mild and this resolved, Pt has received 3 days of IV Ab for her UTI/Sepsis and will continue with PO post DC. Plan: follow up with PCP/Musculoskeletal Physiotherapist if she has one. PO Bactrim DS to continue for UTI d/t comorbidities, discuss DM control with PCP, follow recommendation per diabetic diet handout and your PCP. continue all medications as written.
[2020-01-27] MEDS ORDERED: ZOSYN 3.375 GM 3.375 GM in SODIUM CHLORIDE 50 ML IV STA (16:25)
== END 2020-01-27 18:30 | disposition home or self-care (01) | DRG 951 ==
LOC: ED 12:45 → SCU 14:33 → MEDSURG B 01-25 18:10
PROVIDERS: ADMIT Nurse Practitioner Family; ATTEND Nurse Practitioner Family
DX: Z89.512 Acquired absence of left leg below knee; E66.9 Obesity, unspecified; E11.65 Type 2 diabetes mellitus with hyperglycemia; Z03.818 Encounter for observation for suspected exposure to other biological agents ruled out; Z51.81 Encounter for therapeutic drug level monitoring; Z89.511 Acquired absence of right leg below knee; G89.29 Other chronic pain; E11.40 Type 2 diabetes mellitus with diabetic neuropathy, unspecified; R53.83 Other fatigue; M25.552 Pain in left hip; L89.322 Pressure ulcer of left buttock, stage 2; J02.9 Acute pharyngitis, unspecified; F32.9 Major depressive disorder, single episode, unspecified; R32 Unspecified urinary incontinence; R50.9 Fever, unspecified; B37.0 Candidal stomatitis; N32.81 Overactive bladder; N39.0 Urinary tract infection, site not specified; Z68.43 Body mass index [BMI] 50.0-59.9, adult; G54.6 Phantom limb syndrome with pain; I95.9 Hypotension, unspecified; B96.20 Unspecified Escherichia coli [E. coli] as the cause of diseases classified elsewhere; Z79.899 Other long term (current) drug therapy; I10 Essential (primary) hypertension

== ENCOUNTER 2022-11-02 22:06 | Observation (INO) ==
--- NOTE | 2022-11-02 22:33 | ED.PDOC ---
General ED Provider: Dr. DONNY LAWSON Chief Complaint: Urinary Problem Stated Complaint: burning lower abd pain. [facility] for repeat labs only past week. Has urology appt regarding rt stent November 19 placed June Time Seen by Provider: 11/02/22 22:28 Mode of Arrival: Wheelchair Information Source: Patient and Family Exam Limitations: No limitations Primary Care Provider: ANUJA DÍAZ APRN Nursing and Triage Documentation Reviewed and Agree: Yes Does patient meet sepsis criteria?: No System Inflammatory Response Syndrome: Not Applicable Sepsis Protocol: For patient's 13 years and over: Temp is 96.8 and below OR 101 and greater Pulse >90 BPM Resp >20/minute Acutely Altered Mental Status Are patient's symptoms suggestive of a new infection, such as: -Pneumonia -Skin, Soft Tissue -Endocarditis -UTI -Bone, Joint Infection -Implantable Device -Acute Abdominal Infection -Wound Infection -Meningitis -Blood Stream Catheter Infection -Unknown Review of Systems Review Of Systems Constitutional: Reports No symptoms Eyes: Reports No symptoms Respiratory: Reports No symptoms Cardiac: Reports No symptoms GI: Reports Abdominal pain (lower suprapubic ) : Reports Burning and Dysuria Musculoskeletal: Reports No symptoms Skin: Reports No symptoms Neurological: Reports No symptoms Endocrine: Reports No symptoms Hematologic/Lymphatic: Reports No symptoms All Other Systems: Reviewed and Negative [facility] Medical History Anemia Bladder pain Blister of buttock Cataract Cataract (lens) fragments in eye following cataract surgery, bilateral Cellulitis of buttock, left Decreased appetite Decubitus ulcer Dental caries Diabetes mellitus Diabetes mellitus Diabetes mellitus type 2, uncontrolled Encounter for wound care Essential (primary) hypertension Fatigue Fever Generalized anxiety disorder GERD (gastroesophageal reflux disease) Hematuria Hematuria History of UTI Hospital discharge follow-up Hypertension Impacted cerumen, right ear Incontinence of urine in female detention resident Pain, dental Painful urination Painful urination Painful urination Poor dentition Pressure ulcer of buttock Pressure ulcer of left buttock, stage 1 Pressure ulcer of left buttock, stage 1 Proteinuria S/P bilateral BKA (below knee amputation) Stage II pressure ulcer of buttock Tachycardia Tachycardia Urinary incontinence Urinary tract infection Urinary tract infection Urinary tract infection UTI (urinary tract infection) Visit for screening mammogram Vitamin D deficiency Family History Other Unknown family medical history Social History Smoking and tobacco status: Former smoker Tobacco: How many years used: 10 Passive smoking exposure: Yes Second hand smoke exposure: Yes Smoking risk assessment performed: No Alcohol intake: never Counseling given: No Substance use type: does not use Counseling given: No Cora/rastafari: Voodoo Special cora needs: No Agree to transfusion: Yes Adopted: Yes Caregiver/support person: Yes Household members: spouse Housing: house Lives independently: Yes Number of children: 0 Highest education level completed: some college, no degree Financial difficulty paying for basics: not applicable service: No detention: No Current occupational status: unemployed and disabled Current occupational exposures/hazards: No 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 Basic Pets and animals: Yes Leisure activites: reading History of recent travel: No Sexually active: No Do you think of yourself as: straight/heterosexual Current gender identity: female Seatbelt use: always Helmet use: No Drives intoxicated or rides with intoxicated haul truck driver: No Water heater temperature set < 120 degrees: Yes Working smoke detector in home: Yes Fire extinguisher in home: Yes Carbon monoxide detector in home: Yes Firearms in home: No Surgical History bilateral knee amputation H/O lithotripsy S/P cystoscopy with ureteral stent placement Status post appendectomy Status post cholecystectomy Status post hysterectomy Status post tonsillectomy Female Reproductive History Menstrual Age of Menarche: 13 Hx Hysterectomy: Yes Hx Tubal Ligation: No Physical Exam Physical Exam Appearance: Reports Well-appearing and No pain distress Ill-appearing: None Pain Distress: Mild Eyes: Reports SAMREEN and EOMI ENT: Reports Ears normal and Nose normal Neck: Supple Respiratory: Reports Airway patent and Breath sounds clear Cardiovascular: Reports RRR GI/: Reports Soft and Tender (suprapubic) Musculoskeletal: Reports Normal strength, No edema and Other (bilateral BKA) Skin: Reports Warm, Dry and Normal color Neurological: Reports Alert and Oriented Psychiatric: Reports Affect appropriate and Mood appropriate Interpretation Radiology Interpretation Radiology Interpretation By: Radiologist Radiology Results: No acute changes Exam Interpreted: CT Scan Critical Care Note Critical Care Note Total Critical Care Time (mins): 0 Course Course Hematology/Chemistry: 11/02/22 23:10 11/02/22 23:10 Orders, Labs, Meds: Lab Review 11/02/22 11/02/22 11/02/22 22:18 23:05 23:10 WBC 10.25 H RBC 3.87 L Hgb 10.8 L Hct 35.7 L MCV 92.2 MCH 27.9 MCHC 30.3 L RDW Coeff of Veda 14.4 Plt Count 288 Immature Gran % (Auto) 0.8 Neut % (Auto) 54.8 Lymph % (Auto) 30.6 [place] % (Auto) 8.2 Eos % (Auto) 4.9 Baso % (Auto) 0.7 Neut # (Auto) 5.6 Lymph # (Auto) 3.1 [place] # (Auto) 0.8 Eos # (Auto) 0.5 Baso # (Auto) 0.1 Immature Gran # (Auto) 0.1 Sodium Potassium Chloride Carbon Dioxide Anion Gap BUN Creatinine Estimated GFR (MDRD) BUN/Creatinine Ratio Glucose Calcium Total Bilirubin AST ALT Alkaline Phosphatase Total Protein Albumin Globulin Albumin/Globulin Ratio Lipase Procalcitonin Urine Color Yellow Urine Clarity Turbid Urine pH 6.0 Ur Specific Arnold 1.015 Urine Protein 2+ H Urine Glucose (UA) Negative Urine Ketones Negative Urine Blood 2+ H Urine Nitrite Negative Urine Bilirubin Negative Urine Urobilinogen 0.2 Ur Leukocyte Esterase 3+ H Urine Microscopic RBC 0-2 Urine Microscopic WBC Tntc Ur Squamous Epith Cells 0-2 SARS CoV-2 RNA Rapid FELICITAS Negative 11/02/22 11/02/22 23:10 23:10 WBC RBC Hgb Hct MCV MCH MCHC RDW Coeff of Veda Plt Count Immature Gran % (Auto) Neut % (Auto) Lymph % (Auto) [place] % (Auto) Eos % (Auto) Baso % (Auto) Neut # (Auto) Lymph # (Auto) [place] # (Auto) Eos # (Auto) Baso # (Auto) Immature Gran # (Auto) Sodium 137.6 Potassium 4.10 Chloride 106.3 Carbon Dioxide 21.9 L Anion Gap 13.50 BUN 29.0 H Creatinine 1.74 H Estimated GFR (MDRD) 30.00 BUN/Creatinine Ratio 16.66 Glucose 240.2 H Calcium 7.84 L Total Bilirubin 0.24 AST 20.6 ALT 14.1 Alkaline Phosphatase 71.2 Total Protein 7.92 Albumin 3.75 Globulin 4.17 Albumin/Globulin Ratio 0.89 Lipase 42.5 Procalcitonin 0.06 Urine Color Urine Clarity Urine pH Ur Specific Arnold Urine Protein Urine Glucose (UA) Urine Ketones Urine Blood Urine Nitrite Urine Bilirubin Urine Urobilinogen Ur Leukocyte Esterase Urine Microscopic RBC Urine Microscopic WBC Ur Squamous Epith Cells SARS CoV-2 RNA Rapid FELICITAS Orders Category Date Time Status ED IV/MEDIPORT/POWERPORT .ONCE EMERGENCY 11/02/22 22:52 Active CBC W/ AUTO DIFF Stat LAB 11/02/22 23:10 Completed CMP [COMPREHENSIVE METABOLIC PANEL] Stat LAB 11/02/22 23:10 Completed COVID [SARS COV-2 RNA RAPID FELICITAS] Stat LAB 11/02/22 23:05 Completed LIPASE Stat LAB 11/02/22 23:10 Completed PROCALCITONIN Stat LAB 11/02/22 23:10 Completed URINALYSIS C & S IF INDICATED Stat LAB 11/02/22 22:18 Completed URINE CULTURE Stat LAB 11/02/22 22:18 Received 0.9 % Sodium Chloride [Saline Flush] MEDS 11/02/22 22:52 Active 1 syr IVF PRN PRN Acetaminophen MEDS 11/02/22 22:52 Discontinued 1,000 mg in 100 ml IV ONCE Ertapenem Sodium [Invanz] MEDS 11/02/22 23:52 Discontinued 1 gm .ROUTE .STK-MED ONE Ertapenem Sodium [Invanz] 1 gm MEDS 11/02/22 23:39 Discontinued 0.9 % Sodium Chloride [Sodium Chloride 100Ml] 100 ml IV ONCE Sodium Chloride 0.9% [Sodium Chloride] 500 ml MEDS 11/02/22 22:52 Active IV 100 mls/hr CT ABDOMEN/PELVIS WO CONTRAST Stat RADS 11/02/22 22:43 Completed Medications Generic Name Dose Route Start Last Admin Trade Name Freq PRN Reason Stop Dose Admin Sodium Chloride 500 mls @ 100 mls/hr 11/02/22 22:52 11/02/22 23:10 Sodium Chloride IV 11/03/22 03:51 100 mls/hr .Q5H STA Administration Sodium Chloride 1 syr 11/02/22 22:52 0.9% Sodium Chloride 10 Ml Disp.Syrin IVF PRN PRN To flush IV Discontinued Medications Generic Name Dose Route Start Last Admin Trade Name Freq PRN Reason Stop Dose Admin Acetaminophen 1,000 mg in 100 mls @ 400 mls/hr 11/02/22 22:52 11/02/22 23:32 Acetaminophen IV 11/02/22 23:06 400 mls/hr ONCE ONE Administration Ertapenem 1 gm/ Sodium 100 mls @ 200 mls/hr 11/02/22 23:39 11/02/22 23:54 Chloride IV 11/03/22 00:08 200 mls/hr ONCE STA Administration Vital Signs: Temp Pulse Resp BP Pulse Ox 11/02/22 22:08 99.9 F 90 18 146/74 H 95 discussed labs discussed imaging - hx if rt stent , recurrent infection .,lower abd pain - non c ct discussed IV Sent for last culture report if available from [facility] will administer a one daily dose of ertepenum following prior urine culture with e coli with resistance noted We have tried to obtain prior more recent cultures from both [facility]- none Pt has hx of developing UTI sepsis Per UTD : observation in hospital on IV ABX until culture result known pt ct indicated nothing surgical pt at risk with poorly controlled dm -says she eats only once daily so only takes 64 U lantus at night and no short acting - just usse sliding scale for now calcium - low asymptomatic - add am labs yeast vaginitis - add topical nystatin Discussed with pt and sister - agree with plan Discharge Plan Discharge Patient Disposition: PLACED OBSERVATION Discharge Problem: UTI (urinary tract infection), Hypocalcemia, Chronic kidney disease (CKD) stage G3b/A1, moderately decreased glomerular filtration rate (GFR) between 30-44 m L/min/1.73 square meter and albuminuria creatinine ratio less than 30 mg/g, DM (diabetes mellitus), type 2, uncontrolled Did you review [place] [employer]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
[2022-11-02 22:37] LABS: BILIRUBIN,URINE Negative (NEGATIVE); CLARITY,URINE TURBID (CLEAR); COLOR,URINE Yellow (YELLOW); GLUCOSE, URINE (UA) Negative (NEGATIVE); KETONES,URINE Negative (NEGATIVE); LEUKOCYTE ESTERASE ,URINE 3+ (NEGATIVE); NITRITE,URINE Negative (NEGATIVE); PROTEIN,URINE 2+ (NEGATIVE); SQUAMOUS EPITHELIAL CELL,UR 0-2 (0-5); URINE RBC, MICROSCOPIC 0-2 (0-2); URINE WBC, MICROSCOPIC TNTC (0-2); URINE, BLOOD 2+ (NEGATIVE); UROBILINOGEN,URINE 0.2 (0.2)
[2022-11-02] MEDS ORDERED: SODIUM CHLORIDE 500 ML IV STA (22:52)
[2022-11-02] MEDS ORDERED: ACETAMINOPHEN 1,000 MG/100 ML BAG IV ONE (22:52)
[2022-11-02 23:14] LABS: BASOPHILS # (AUTO) 0.1 K/uL (0-0.2); BASOPHILS % (AUTO) 0.7 % (0.0-3.0); EOSINOPHILS # (AUTO) 0.5 K/ul (0.0-0.7); EOSINOPHILS % (AUTO) 4.9 % (0.0-7.0); HEMATOCRIT 35.7 % (37.0-47.0); HEMOGLOBIN 10.8 g/dl (12.0-16.0); IMMATURE GRANULOCYTE # (AUTO) 0.1 (0.0-1.0); IMMATURE GRANULOCYTE % (AUTO) 0.8 % (0.0-5.0); LYMPHOCYTES # (AUTO) 3.1 K/uL (0.60-3.4); LYMPHOCYTES % (AUTO) 30.6 (10.0-50.0); MEAN CORPUSCULAR HEMOGLOBIN 27.9 pg (27.0-31.0); MEAN CORPUSCULAR HGB CONC 30.3 (31.8-35.4); MEAN CORPUSCULAR VOLUME 92.2 fl (81.0-99.0); MONOCYTES # (AUTO) 0.8 K/uL (0.4-2.0); MONOCYTES % (AUTO) 8.2 (0-10); NEUTROPHILS # (AUTO) 5.6 K/ul (2.0-6.9); NEUTROPHILS % (AUTO) 54.8 % (42.2-75.2); PLATELET COUNT 288 10^3/uL (140-440); RDW COEFFICIENT OF VARIATION 14.4 % (11.6-14.8); RED BLOOD COUNT 3.87 10^6/ul (4.20-5.40); WHITE BLOOD COUNT 10.25 K/ul (4.6-10.2)
[2022-11-02 23:27] LABS: ALANINE AMINOTRANSFERASE 14.1 U/L (0-35); ALBUMIN 3.75 g/dL (3.5-5.0); ALKALINE PHOSPHATASE 71.2 U/L (38-126); ASPARTATE AMINO TRANSFERASE 20.6 U/L (14-36); BILIRUBIN,TOTAL 0.24 mg/dL (0.2-1.3); CALCIUM 7.84 mg/dL (8.4-10.2); CARBON DIOXIDE 21.9 mmol/L (22-30.0); CHLORIDE 106.3 mmol/L (98-107); CREATININE 1.74 mg/dL (0.60-1.30); GLUCOSE 240.2 mg/dL (74-106); LIPASE 42.5 U/L (23-300); POTASSIUM 4.1 mmol/L (3.5-5.1); SODIUM 137.6 mmol/L (134.5-145); TOTAL PROTEIN 7.92 g/dL (6.3-8.2)
[2022-11-02] MEDS ORDERED: INVANZ 1 GM in SODIUM CHLORIDE 100ML 100 ML IV STA (23:39)
[2022-11-02 23:50] LABS: SARS COV-2 RNA RAPID NAAT NEGATIVE (NEGATIVE)
[2022-11-02] MEDS ORDERED: INVANZ ONE (23:52)
--- NOTE | 2022-11-02 23:55 | CT ---
EXAM: CT OF THE ABDOMEN AND PELVIS WITHOUT CONTRAST. HISTORY: Lower abdominal pain with recurrent UTI. History of stones. PROCEDURE: Contiguous axial CT images of the abdomen and pelvis without contrast with coronal and sa gittal reformats. All CT scans are performed using dose optimization techniques as appropriate to a performed exam including the following: Automated exposure control, Adjustment of the mA and/or kV ac cording to patient size, Use of iterative reconstruction technique. FINDINGS: Comparison made with CT of 03/15/2022. The liver is normal in appearance. The gallbladder is surgically absent. The pancreas, spleen and adrenal glands are normal in appearance. There is a right double-J stent in adequate position with stable moderate right hydronephrosis and hydroureter to the level of the ureterovesicle junction. There is stable moderate left hydronephrosis and hydrou reter to the level of the ureterovesicle junction. The bladder is minimally filled which limits the evaluation. There is bladder wall thickening measuring up to 1.7 cm. The abdominal aorta is within normal limits in size. There are a few enlarged retroperitoneal lymph nodes measuring up to 1 cm in short axis. The appendix is not visualized. The visualized loops of bowel are normal in appearance. No free fluid or free air in the abdomen or pelvis. There are degenerative changes in the spine. Impression: Stable left hydronephrosis and hydroureter as described, probably secondary to bladder wa ll thickening. Stable right hydronephrosis and hydroureter with right double-J stent as described, suspicious for st ent obstruction. Bladder wall thickening as described. The differential diagnosis includes infection and neoplasm. Retroperitoneal lymphadenopathy as described. Recommend follow-up CT in 3 months to assess stability . Cholecystectomy. All CT scans are performed using dose optimization techniques as appropriate to the performed exam an d include at least one of the following: Automated exposure control, adjustment of the mA and/or kV according t o size, and the use of iterative reconstruction technique.
[2022-11-03] MEDS ORDERED: DEXTROSE 50%-WATER ABBOJECT IVP PRN (01:08)
[2022-11-03 01:57] VITALS: BMI 31.2
--- NOTE | 2022-11-03 01:57 | PCM ---
Chief Complaint Chief Complaint: burning with urination suprapubic pain History of Present Illness History of Present Illness: Hx of complex UTI .Had labs at [facility] Nephro office . Seen at [facility] last Sat and placed on Levoquin. Symptoms no better. Has a right ureteral stent placed by Dr Gold with [facility] last June to be seen November 19. Hx of poorly controlled DM and bilateral lower leg amputation. She is placed in observation following UpToDate guidelines with the complex patient to receive IV antibiotic until culture result known. We attempted to obtain most recent urinary cultures from both [facility] and at time of observation none were available. Pt has had urosepsis in past . I used the patients last positive urine culture from [facility] of e coli for selection of ertepenem 1 gm daily in the event we could have identified an effective oral antibiotic and discharged the patient from the ED. Note the patient has a hearing deficit. Her bun is elevated and already has CKD 3 and IV fluids are added. Bedside discussion with the patient and her sister took place regarding the tests , results , treatment , and plan of care going forward. They were appreciative and understand and agree Review of Systems Constitutional: Reports No symptoms Eyes: Reports No symptoms Ears: Reports Hearing loss Nose: Reports No symptoms Throat: Reports No symptoms Mouth: Reports No symptoms Respiratory: Reports No symptoms Cardiovascular: Reports No symptoms Gastrointestinal: Reports No symptoms Genitourinary: Reports dysuria, frequency and other (suprapubic tenderness neg non contrast ct ) Neurological: Reports No symptoms Musculoskeletal: Reports No symptoms Skin: Reports No symptoms and Other (denies any active pressure sores ) Immunology: Reports No symptoms Hematology: Reports No symptoms Endocrine: Reports No symptoms Psychiatric: Reports No symptoms Habits: Denies Tobacco use, Substance use, Alcohol use or Other Allergies Allergies Allergy/AdvReac Type Severity Reaction Status Date / Time iodine Allergy Anaphylaxis Verified 10/04/22 15:05 promethazine HCl Allergy rash Verified 10/04/22 15:05 [From Phenergan] empagliflozin AdvReac Intermediate frequent Verified 10/04/22 15:05 [From Jardiance] UTI's Iodinated Contrast Media AdvReac Anaphylaxis Verified 10/04/22 15:05 [Iodinated Contrast- Oral and IV Dye] [facility] Medical History Anemia Bladder pain Blister of buttock Cataract Cataract (lens) fragments in eye following cataract surgery, bilateral Cellulitis of buttock, left Decreased appetite Decubitus ulcer Dental caries Diabetes mellitus Diabetes mellitus Diabetes mellitus type 2, uncontrolled Encounter for wound care Essential (primary) hypertension Fatigue Fever Generalized anxiety disorder GERD (gastroesophageal reflux disease) Hematuria Hematuria History of UTI Hospital discharge follow-up Hypertension Impacted cerumen, right ear Incontinence of urine in female alf resident Pain, dental Painful urination Painful urination Painful urination Poor dentition Pressure ulcer of buttock Pressure ulcer of left buttock, stage 1 Pressure ulcer of left buttock, stage 1 Proteinuria S/P bilateral BKA (below knee amputation) Stage II pressure ulcer of buttock Tachycardia Tachycardia Urinary incontinence Urinary tract infection Urinary tract infection Urinary tract infection UTI (urinary tract infection) Visit for screening mammogram Vitamin D deficiency Surgical History bilateral knee amputation H/O lithotripsy S/P cystoscopy with ureteral stent placement Status post appendectomy Status post cholecystectomy Status post hysterectomy Status post tonsillectomy Family History Other Unknown family medical history Social History Smoking and tobacco status: Former smoker Tobacco: How many years used: 10 Passive smoking exposure: Yes Second hand smoke exposure: Yes Smoking risk assessment performed: No Alcohol intake: never Counseling given: No Substance use type: does not use Counseling given: No [facility]syn[facility]: [facility] Special cora needs: No Agree to transfusion: Yes Adopted: Yes Caregiver/support person: Yes Household members: spouse Housing: house Lives independently: Yes Number of children: 0 Highest education level completed: some college, no degree Financial difficulty paying for basics: not applicable service: No alf: No Current occupational status: unemployed and disabled Current occupational exposures/hazards: No 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 and animals: Yes Leisure activites: reading History of recent travel: No Sexually active: No Do you think of yourself as: straight/heterosexual Current gender identity: female Seatbelt use: always Helmet use: No Drives intoxicated or rides with intoxicated jitney driver: No Water heater temperature set < 120 degrees: Yes Working smoke detector in home: Yes Fire extinguisher in home: Yes Carbon monoxide detector in home: Yes Firearms in home: No Medications Medications: Medications Generic Name Dose Route Start Last Admin Trade Name Freq PRN Reason Stop Dose Admin Sodium Chloride 500 mls @ 100 mls/hr 11/02/22 22:52 11/02/22 23:10 Sodium Chloride IV 11/03/22 03:51 100 mls/hr .Q5H STA Administration Sodium Chloride 1 syr 11/02/22 22:52 0.9% Sodium Chloride 10 Ml Disp.Syrin IVF PRN PRN To flush IV Body Composition Height: 5 ft 5 in Weight: 188 lb Body Mass Index (BMI): 31.2 Vital Signs Temperature: 97.5 F Pulse Rate: 82 Respiratory Rate: 18 Blood Pressure: 111/61 O2 Sat by Pulse Oximetry: 95 Physical Examination Appearance: Reports No pain distress Ill-appearing: Mild Pain Distress: Mild Eyes: Reports SAMREEN, EOMI and Conjunctiva clear ENT: Reports Ears normal and Nose normal Neck: Supple Respiratory: Reports Airway patent and Breath sounds clear Cardiovascular: Reports RRR and Pulses normal GI/: Reports Soft and Tender (suprapubic ) Musculoskeletal: Reports No edema and Other (at her baseline) Skin: Reports Warm, Dry and Normal color Neurological: Reports Alert and Oriented Psychiatric: Reports Affect appropriate and Mood appropriate Lab/Tests/Diagnostic Imaging Lab/Tests/Diagnostic Imaging: Lab Review 11/02/22 11/02/22 11/02/22 22:18 23:05 23:10 WBC 10.25 H RBC 3.87 L Hgb 10.8 L Hct 35.7 L MCV 92.2 MCH 27.9 MCHC 30.3 L RDW Coeff of Veda 14.4 Plt Count 288 Immature Gran % (Auto) 0.8 Neut % (Auto) 54.8 Lymph % (Auto) 30.6 Webster % (Auto) 8.2 Eos % (Auto) 4.9 Baso % (Auto) 0.7 Neut # (Auto) 5.6 Lymph # (Auto) 3.1 Webster # (Auto) 0.8 Eos # (Auto) 0.5 Baso # (Auto) 0.1 Immature Gran # (Auto) 0.1 Sodium Potassium Chloride Carbon Dioxide Anion Gap BUN Creatinine Estimated GFR (MDRD) BUN/Creatinine Ratio Glucose Calcium Total Bilirubin AST ALT Alkaline Phosphatase Total Protein Albumin Globulin Albumin/Globulin Ratio Lipase Procalcitonin Urine Color Yellow Urine Clarity Turbid Urine pH 6.0 Ur Specific [place] 1.015 Urine Protein 2+ H Urine Glucose (UA) Negative Urine Ketones Negative Urine Blood 2+ H Urine Nitrite Negative Urine Bilirubin Negative Urine Urobilinogen 0.2 Ur Leukocyte Esterase 3+ H Urine Microscopic RBC 0-2 Urine Microscopic WBC Tntc Ur Squamous Epith Cells 0-2 SARS CoV-2 RNA Rapid FELICITAS Negative 11/02/22 11/02/22 23:10 23:10 WBC RBC Hgb Hct MCV MCH MCHC RDW Coeff of Veda Plt Count Immature Gran % (Auto) Neut % (Auto) Lymph % (Auto) Webster % (Auto) Eos % (Auto) Baso % (Auto) Neut # (Auto) Lymph # (Auto) Webster # (Auto) Eos # (Auto) Baso # (Auto) Immature Gran # (Auto) Sodium 137.6 Potassium 4.10 Chloride 106.3 Carbon Dioxide 21.9 L Anion Gap 13.50 BUN 29.0 H Creatinine 1.74 H Estimated GFR (MDRD) 30.00 BUN/Creatinine Ratio 16.66 Glucose 240.2 H Calcium 7.84 L Total Bilirubin 0.24 AST 20.6 ALT 14.1 Alkaline Phosphatase 71.2 Total Protein 7.92 Albumin 3.75 Globulin 4.17 Albumin/Globulin Ratio 0.89 Lipase 42.5 Procalcitonin 0.06 Urine Color Urine Clarity Urine pH Ur Specific [place] Urine Protein Urine Glucose (UA) Urine Ketones Urine Blood Urine Nitrite Urine Bilirubin Urine Urobilinogen Ur Leukocyte Esterase Urine Microscopic RBC Urine Microscopic WBC Ur Squamous Epith Cells SARS CoV-2 RNA Rapid FELICITAS Orders Category Date Time Status PLACE PAT[facility] .[facility] 11/03/22 00:59 Ordered BED) ACTIVITY .Up in Chair CARE 11/03/22 01:08 Ordered BLOOD GLUCOSE MONITORING (MED/SURG) 0630,1100,1700,2100 CARE 11/03/22 01:08 Ordered CASE MANAGEMENT CONSULT ONCE CARE 11/03/22 01:01 Ordered GIVE HS SNACK 2100 CARE 11/03/22 01:02 Ordered INTAKE & OUTPUT Q8HR CARE 11/03/22 01:00 Ordered IP: INSERT SALINE LOCK ONCE CARE 11/03/22 01:00 Ordered REMINDER: Give Insulin if Needed 0630,1100,1700,2100 CARE 11/03/22 01:08 Ordered VITAL SIGNS Q4HR CARE 11/03/22 01:01 Ordered VITAL SIGNS Q8HR CARE 11/03/22 01:00 Ordered ADA 1800 OSIRIS. DIET DIETARY 11/03/22 Breakfast Ordered HS SNACK DIETARY 11/03/22 Dinner Ordered STORE CLERK CASHIER CONSULT [CONSULT STORE CLERK CASHIER] ONCE STORE CLERK CASHIER 11/03/22 01:20 Ordered ED IV/MEDIPORT/POWERPORT .ONCE EMERGENCY 11/02/22 22:52 Active BASIC METABOLIC PANEL DAILY@0600 LAB 11/03/22 06:00 Ordered BASIC METABOLIC PANEL DAILY@0600 LAB 11/04/22 06:00 Ordered CBC W/ AUTO DIFF DAILY@0600 LAB 11/03/22 06:00 Ordered CBC W/ AUTO DIFF DAILY@0600 LAB 11/04/22 06:00 Ordered CBC W/ AUTO DIFF Stat LAB 11/02/22 23:10 Completed CMP [COMPREHENSIVE METABOLIC PANEL] Stat LAB 11/02/22 23:10 Completed COVID [SARS COV-2 RNA RAPID FELICITAS] Stat LAB 11/02/22 23:05 Completed LIPASE Stat LAB 11/02/22 23:10 Completed MAGNESIUM Routine LAB 11/03/22 06:00 Ordered PARATHYROID HORMONE, INTACT Routine LAB 11/03/22 06:00 Ordered PHOSPHORUS Routine LAB 11/03/22 06:00 Ordered PROCALCITONIN Stat LAB 11/02/22 23:10 Completed TSH [THYROID STIMULATING HORMONE] Routine LAB 11/03/22 06:00 Ordered URINALYSIS C & S IF INDICATED Stat LAB 11/02/22 22:18 Completed URINE CULTURE Stat LAB 11/02/22 22:18 Received VITAMIN D 1,25-DIHYDROXY Routine LAB 11/03/22 06:00 Ordered 0.9 % Sodium Chloride [Saline Flush] MEDS 11/02/22 22:52 Active 1 syr IVF PRN PRN Acetaminophen MEDS 11/02/22 22:52 Discontinued 1,000 mg in 100 ml IV ONCE Bupropion HCl [Wellbutrin Xl] MEDS 11/03/22 09:00 Ordered 300 mg PO QAM Buspirone HCl [Buspar] MEDS 11/03/22 09:00 Ordered 30 mg PO BID Dextrose 50 % in Water [Dextrose 50%-Water Abboject] MEDS 11/03/22 01:08 Ordered 50 ml IVP ONCE PRN Ertapenem Sodium [Invanz] MEDS 11/02/22 23:52 Discontinued 1 gm .ROUTE .STK-MED ONE Ertapenem Sodium [Invanz] 1 gm MEDS 11/03/22 09:00 Ordered 0.9 % Sodium Chloride [Sodium Chloride 100Ml] 100 ml IV DAILY Ertapenem Sodium [Invanz] 1 gm MEDS 11/02/22 23:39 Discontinued 0.9 % Sodium Chloride [Sodium Chloride 100Ml] 100 ml IV ONCE Escitalopram Oxalate [Lexapro] MEDS 11/03/22 01:30 Ordered 20 mg PO QDAY Gabapentin [Neurontin] MEDS 11/03/22 09:00 Ordered 600 mg PO TID Heparin Sodium,Porcine [Heparin] MEDS 11/03/22 01:30 Ordered 5,000 units SUBCUT Q12HR Hydrocodone Bit/Acetaminophen [Bowie 10-325] MEDS 11/03/22 01:24 Ordered 1 tab PO Q6HR PRN Insulin Regular, Human [Humulin R] MEDS 11/03/22 01:24 Ordered See Protocol SUBCUT PRN PRN Methocarbamol [Robaxin] MEDS 11/03/22 09:00 Ordered 500 mg PO BID Metoprolol Tartrate [Lopressor] MEDS 11/03/22 01:30 Ordered See Dose Instructions PO .COMPLEX Omeprazole [Prilosec] MEDS 11/03/22 02:00 Ordered 20 mg PO QDAC Simvastatin [Zocor] MEDS 11/03/22 01:30 Ordered See Dose Instructions PO .COMPLEX Sitagliptin Phosphate [Januvia] MEDS 11/03/22 09:00 Ordered 100 mg PO DAILY Sodium Chloride 0.9% [Sodium Chloride] 1,000 ml MEDS 11/03/22 01:30 Ordered IV 80 mls/hr Sodium Chloride 0.9% [Sodium Chloride] 500 ml MEDS 11/02/22 22:52 Active IV 100 mls/hr Trazodone HCl [Desyrel] MEDS 11/03/22 02:00 Ordered 100 mg PO QHS RESUSCITATION STATUS Routine OTHERS 11/03/22 00:[address] ABDOMEN/PELVIS WO CONTRAST Stat RADS 11/02/22 22:43 Completed Medications Generic Name Dose Route Start Last Admin Trade Name Freq PRN Reason Stop Dose Admin Sodium Chloride 500 mls @ 100 mls/hr 11/02/22 22:52 11/02/22 23:10 Sodium Chloride IV 11/03/22 03:51 100 mls/hr .Q5H STA Administration Sodium Chloride 1 syr 11/02/22 22:52 0.9% Sodium Chloride 10 Ml Disp.Syrin IVF PRN PRN To flush IV Discontinued Medications Generic Name Dose Route Start Last Admin Trade Name Freq PRN Reason Stop Dose Admin Acetaminophen 1,000 mg in 100 mls @ 400 mls/hr 11/02/22 22:52 11/02/22 23:32 Acetaminophen IV 11/02/22 23:06 400 mls/hr ONCE ONE Administration Ertapenem 1 gm/ Sodium 100 mls @ 200 mls/hr 11/02/22 23:39 11/02/22 23:54 Chloride IV 11/03/22 00:08 200 mls/hr ONCE STA Administration Assessment (1) Complicated urinary tract infection: Status: Acute Code(s): N39.0 - Urinary tract infection, site not specified SNOMED Code(s): 89196624 (2) Vaginal candidiasis: Status: Acute Code(s): B37.3 - Candidiasis of vulva and vagina SNOMED Code(s): 84962386 (3) Chronic kidney disease (CKD) stage G3b/A1, moderately decreased glomerular filtration rate (GFR) between 30-44 mL/min/1.73 square meter and albuminuria creatinine ratio less than 30 mg/g: Status: Acute Code(s): N18.32 - Chronic kidney disease, stage 3b SNOMED Code(s): 176598620 (4) DM (diabetes mellitus), type 2, uncontrolled: Status: Acute Code(s): E11.65 - Type 2 diabetes mellitus with hyperglycemia SNOMED Code(s): 742612430 (5) Hypocalcemia: Status: Acute Code(s): E83.51 - Hypocalcemia SNOMED Code(s): 0403509 (6) Elevated BUN: Status: Acute Code(s): R79.9 - Abnormal finding of blood chemistry, unspecified SNOMED Code(s): 754313085 Plan Plan: 1.For UTI - Ertapenem 1 gm daily while await culture 2.For DM - regular sliding scale , sitagliptin ,dietary consult 3.For yeast dermatitis - topical nystatin cream bid 4.For DVT prophylaxis - heparin 5000U subq q 12 hrs 5.For GI prophylaxis - omeprazole 20 mg po daily 6.For hypocalcemia - mg , phosphate , PTH, vit d ordered am lab . Appears chronic and no symptoms. Pt has public health [facility]itarian at [facility] 7.Elevated BUN - NS 80 ml/hr 8.For CKD - avoid nephrotoxic drugs , NS IVF administration
[2022-11-03] MEDS: PRILOSEC PO SCH ×2 (01:59→06:13)
[2022-11-03] MEDS: HEPARIN SUBCUT SCH ×2 (02:03→21:35)
[2022-11-03] MEDS: DESYREL PO SCH ×2 (02:03→21:39)
[2022-11-03] MEDS: SODIUM CHLORIDE 1,000 ML IV SCH ×3 (02:04→14:42)
[2022-11-03] MEDS: NORCO 10-325 PO PRN ×3 (02:11→23:26)
[2022-11-03 05:44] LABS: BASOPHILS % (AUTO) 0.3 % (0.0-3.0); EOSINOPHILS # (AUTO) 0.4 K/ul (0.0-0.7); EOSINOPHILS % (AUTO) 4.2 % (0.0-7.0); HEMATOCRIT 32.6 % (37.0-47.0); HEMOGLOBIN 10.3 g/dl (12.0-16.0); IMMATURE GRANULOCYTE # (AUTO) 0.1 (0.0-1.0); IMMATURE GRANULOCYTE % (AUTO) 0.9 % (0.0-5.0); LYMPHOCYTES # (AUTO) 3.4 K/uL (0.60-3.4); LYMPHOCYTES % (AUTO) 35.4 (10.0-50.0); MEAN CORPUSCULAR HEMOGLOBIN 28.9 pg (27.0-31.0); MEAN CORPUSCULAR HGB CONC 31.6 (31.8-35.4); MEAN CORPUSCULAR VOLUME 91.3 fl (81.0-99.0); MONOCYTES # (AUTO) 0.8 K/uL (0.4-2.0); MONOCYTES % (AUTO) 8.6 (0-10); NEUTROPHILS # (AUTO) 4.8 K/ul (2.0-6.9); NEUTROPHILS % (AUTO) 50.6 % (42.2-75.2); PLATELET COUNT 282 10^3/uL (140-440); RDW COEFFICIENT OF VARIATION 14.3 % (11.6-14.8); RED BLOOD COUNT 3.57 10^6/ul (4.20-5.40); WHITE BLOOD COUNT 9.48 K/ul (4.6-10.2)
[2022-11-03 05:56] LABS: BLOOD UREA NITROGEN 29.1 mg/dL (7-17); CALCIUM 7.65 mg/dL (8.4-10.2); CARBON DIOXIDE 23.7 mmol/L (22-30.0); CHLORIDE 107.3 mmol/L (98-107); CREATININE 1.7 mg/dL (0.60-1.30); GLUCOSE 161.4 mg/dL (74-106); MAGNESIUM 1.73 mg/dL (1.6-2.3); PHOSPHORUS 4.35 mg/dL (2.5-4.5); POTASSIUM 3.81 mmol/L (3.5-5.1); SODIUM 137.6 mmol/L (134.5-145)
[2022-11-03 06:22] LABS: THYROID STIMULATING HORMONE 3.61 uIU/L (0.465-4.68)
[2022-11-03] MEDS: ZOCOR PO SCH (08:51)
[2022-11-03] MEDS: LOPRESSOR PO SCH ×2 (08:51→21:38)
[2022-11-03] MEDS: JANUVIA PO SCH (08:51)
[2022-11-03] MEDS: NEURONTIN PO SCH ×3 (08:51→21:39)
[2022-11-03] MEDS: ROBAXIN PO SCH ×2 (08:52→21:38)
[2022-11-03] MEDS: BUSPAR PO SCH ×2 (08:52→21:39)
[2022-11-03] MEDS: LEXAPRO PO SCH (08:52)
[2022-11-03] MEDS ORDERED: WELLBUTRIN XL PO SCH (09:00)
[2022-11-03] MEDS ORDERED: ZOFRAN 4 MG/2 ML IVP PRN (09:03)
[2022-11-03] MEDS ORDERED: ZOFRAN 4 MG/2 ML IVP STA (09:03)
--- NOTE | 2022-11-03 10:35 | PCM.PROG ---
Date Seen by Provider: 11/03/22 Time Seen by Provider: 09:15 Subjective: Patient complains of lower abdominal pain. Objective: Vitals: T=96.4 F, P=77, R=16, QZ=916/63, SPO2=93 Patient alert and in NAD. HEENT: [] Neck: [] Supple Lungs: [] Clear and BS equal. CVS: [] RRR. Abdomen: []Abdomen soft and nontender. Extremities: [] Neurological: [] Skin: [] Lab/Tests/Diagnostic Imaging: [] (1) Complicated urinary tract infection: Status: Acute Code(s): N39.0 - Urinary tract infection, site not specified SNOMED Code(s): 57912194 (2) Vaginal candidiasis: Status: Acute Code(s): B37.3 - Candidiasis of vulva and vagina SNOMED Code(s): 71681128 (3) Chronic kidney disease (CKD) stage G3b/A1, moderately decreased glomerular filtration rate (GFR) between 30-44 mL/min/1.73 square meter and albuminuria creatinine ratio less than 30 mg/g: Status: Acute Code(s): N18.32 - Chronic kidney disease, stage 3b SNOMED Code(s): 719723039 (4) DM (diabetes mellitus), type 2, uncontrolled: Status: Acute Code(s): E11.65 - Type 2 diabetes mellitus with hyperglycemia SNOMED Code(s): 136341237 (5) Hypocalcemia: Status: Acute Code(s): E83.51 - Hypocalcemia SNOMED Code(s): 2867375 (6) Elevated BUN: Status: Acute Code(s): R79.9 - Abnormal finding of blood chemistry, unspecified SNOMED Code(s): 771102143 (7) Status post placement of ureteral stent: Status: Acute Code(s): Z96.0 - Presence of urogenital implants SNOMED Code(s): 272099383 Plan: Patient stable. She will be transferred elsewhere for urology consult and possible stent exchange or removal.
[2022-11-03] MEDS: HUMULIN R SUBCUT PRN ×3 (10:52→21:36)
[2022-11-03] MEDS: NYSTOP POWDER TP SCH ×2 (12:16→21:39)
[2022-11-03] MEDS ORDERED: INVANZ 1 GM in SODIUM CHLORIDE 100ML 100 ML IV SCH (21:00)
[2022-11-04] MEDS: SODIUM CHLORIDE 1,000 ML IV SCH ×2 (03:01→15:46)
[2022-11-04 05:35] LABS: BASOPHILS # (AUTO) 0.1 K/uL (0-0.2); BASOPHILS % (AUTO) 0.7 % (0.0-3.0); EOSINOPHILS # (AUTO) 0.4 K/ul (0.0-0.7); EOSINOPHILS % (AUTO) 5.3 % (0.0-7.0); HEMATOCRIT 35.4 % (37.0-47.0); HEMOGLOBIN 10.5 g/dl (12.0-16.0); IMMATURE GRANULOCYTE # (AUTO) 0.1 (0.0-1.0); IMMATURE GRANULOCYTE % (AUTO) 0.9 % (0.0-5.0); LYMPHOCYTES # (AUTO) 1.9 K/uL (0.60-3.4); LYMPHOCYTES % (AUTO) 24.1 (10.0-50.0); MEAN CORPUSCULAR HEMOGLOBIN 28.4 pg (27.0-31.0); MEAN CORPUSCULAR HGB CONC 29.7 (31.8-35.4); MEAN CORPUSCULAR VOLUME 95.7 fl (81.0-99.0); MONOCYTES # (AUTO) 0.7 K/uL (0.4-2.0); MONOCYTES % (AUTO) 8.2 (0-10); NEUTROPHILS # (AUTO) 4.9 K/ul (2.0-6.9); NEUTROPHILS % (AUTO) 60.8 % (42.2-75.2); PLATELET COUNT 272 10^3/uL (140-440); RDW COEFFICIENT OF VARIATION 14.5 % (11.6-14.8); WHITE BLOOD COUNT 8.06 K/ul (4.6-10.2)
[2022-11-04] MEDS: PRILOSEC PO SCH (05:49)
[2022-11-04 05:56] LABS: BLOOD UREA NITROGEN 23.7 mg/dL (7-17); CALCIUM 7.51 mg/dL (8.4-10.2); CARBON DIOXIDE 26.3 mmol/L (22-30.0); CHLORIDE 111.3 mmol/L (98-107); CREATININE 1.56 mg/dL (0.60-1.30); GLUCOSE 128.2 mg/dL (74-106); POTASSIUM 4.75 mmol/L (3.5-5.1); SODIUM 141.4 mmol/L (134.5-145)
[2022-11-04] MEDS: JANUVIA PO SCH (08:25)
[2022-11-04] MEDS: ROBAXIN PO SCH (08:26)
[2022-11-04] MEDS: LOPRESSOR PO SCH (08:26)
[2022-11-04] MEDS: NEURONTIN PO SCH ×2 (08:26→15:01)
[2022-11-04] MEDS: ZOCOR PO SCH (08:26)
[2022-11-04] MEDS: HEPARIN SUBCUT SCH (08:27)
[2022-11-04] MEDS: BUSPAR PO SCH (08:27)
[2022-11-04] MEDS: LEXAPRO PO SCH (08:27)
[2022-11-04] MEDS: NYSTOP POWDER TP SCH (08:29)
[2022-11-04] MEDS: HUMULIN R SUBCUT PRN (11:04)
[2022-11-04] MEDS: NORCO 10-325 PO PRN (12:13)
[2022-11-04 12:18] LABS: BILIRUBIN,URINE Negative (NEGATIVE); CLARITY,URINE Slightly (CLEAR); COLOR,URINE Yellow (YELLOW); GLUCOSE, URINE (UA) Negative (NEGATIVE); KETONES,URINE Negative (NEGATIVE); LEUKOCYTE ESTERASE ,URINE 3+ (NEGATIVE); NITRITE,URINE Negative (NEGATIVE); PROTEIN,URINE 1+ (NEGATIVE); URINE, BLOOD 1+ (NEGATIVE); UROBILINOGEN,URINE 0.2 (0.2)
[2022-11-04 12:23] LABS: BACTERIA,URINE 1+ (NOT PRESENT); URINE WBC, MICROSCOPIC 50-100 (0-2)
--- NOTE | 2022-11-04 15:28 | PCM.PROG ---
Date Seen by Provider: 11/04/22 Time Seen by Provider: 15:26 Subjective: dx. right hydronephrosis and possible infected renal stent Objective: Vitals: T=97.4 F, P=72, R=16, OI=374/63, SPO2=92 HEENT: []conjunctiva clear Neck: []supple Lungs: [] no respiratory distress CVS: [] Abdomen: []nondistended Extremities: []devin Neurological: []alert and oriented Skin: []pink Lab/Tests/Diagnostic Imaging: [] (1) Complicated urinary tract infection: Status: Acute Code(s): N39.0 - Urinary tract infection, site not specified SNOMED Code(s): 77235154 (2) Vaginal candidiasis: Status: Acute Code(s): B37.3 - Candidiasis of vulva and vagina SNOMED Code(s): 85267492 (3) Chronic kidney disease (CKD) stage G3b/A1, moderately decreased glomerular filtration rate (GFR) between 30-44 mL/min/1.73 square meter and albuminuria creatinine ratio less than 30 mg/g: Status: Acute Code(s): N18.32 - Chronic kidney disease, stage 3b SNOMED Code(s): 465221992 (4) DM (diabetes mellitus), type 2, uncontrolled: Status: Acute Code(s): E11.65 - Type 2 diabetes mellitus with hyperglycemia SNOMED Code(s): 737424400 (5) Hypocalcemia: Status: Acute Code(s): E83.51 - Hypocalcemia SNOMED Code(s): 4643887 (6) Elevated BUN: Status: Acute Code(s): R79.9 - Abnormal finding of blood chemistry, unspecified SNOMED Code(s): 727539343 (7) Status post placement of ureteral stent: Status: Acute Code(s): Z96.0 - Presence of urogenital implants SNOMED Code(s): 773449593 Plan: transfer to urology, continue iv antibiotics
--- NOTE | 2022-11-04 16:56 | PCM.DC ---
Final Diagnosis: right hydronephrosis and ureteral stent Physical Exam Appearance: Well-appearing Ill-appearing: None Pain Distress: Mild Eyes: Conjunctiva clear ENT: Oropharynx normal Neck: Supple Respiratory: Airway patent Cardiovascular: RRR GI/: Nontender Musculoskeletal: ROM intact Skin: Warm and Dry Neurological: Alert and Oriented Psychiatric: Affect appropriate (1) Complicated urinary tract infection: Status: Acute Code(s): N39.0 - Urinary tract infection, site not specified SNOMED Code(s): 90954756 (2) Vaginal candidiasis: Status: Acute Code(s): B37.3 - Candidiasis of vulva and vagina SNOMED Code(s): 80250981 (3) Chronic kidney disease (CKD) stage G3b/A1, moderately decreased glomerular filtration rate (GFR) between 30-44 mL/min/1.73 square meter and albuminuria creatinine ratio less than 30 mg/g: Status: Acute Code(s): N18.32 - Chronic kidney disease, stage 3b SNOMED Code(s): 442709315 (4) DM (diabetes mellitus), type 2, uncontrolled: Status: Acute Code(s): E11.65 - Type 2 diabetes mellitus with hyperglycemia SNOMED Code(s): 473673127 (5) Hypocalcemia: Status: Acute Code(s): E83.51 - Hypocalcemia SNOMED Code(s): 6475816 (6) Elevated BUN: Status: Acute Code(s): R79.9 - Abnormal finding of blood chemistry, unspecified SNOMED Code(s): 709215976 (7) Status post placement of ureteral stent: Status: Acute Code(s): Z96.0 - Presence of urogenital implants SNOMED Code(s): 784226832 Reason for Hospitalization: lower abdominal pain Prognosis/Condition at Discharge: good Medications at Discharge: home meds Lab/Diagnostics: ct scan right hydronephrosis and possible stent obstruction Education Provided to Patient and Family: none Follow-ups: pt transfer accepted by Yuri Caba (urology)/ Manohar (Hospitalist) at [facility] Discharge Disposition: Transfer Hospital Course: good, decreased wbc while taking antibiotic Plan: transfer to subspecialty care
[2022-11-04 18:08] VITALS: BP 113/69; TEMP 96.8
== END 2022-11-04 18:42 ==
LOC: ED 22:06 → MEDSURG A 22:06
PROVIDERS: ADMIT Emergency Medicine; ATTEND Emergency Medicine Emergency Medical Services
DX: Z89.512 Acquired absence of left leg below knee; D64.9 Anemia, unspecified; E11.65 Type 2 diabetes mellitus with hyperglycemia; E83.51 Hypocalcemia; Z89.511 Acquired absence of right leg below knee; E11.22 Type 2 diabetes mellitus with diabetic chronic kidney disease; Z20.822 Contact with and (suspected) exposure to COVID-19; E55.9 Vitamin D deficiency, unspecified; N32.89 Other specified disorders of bladder; B37.31 Acute candidiasis of vulva and vagina; I10 Essential (primary) hypertension; N18.32 Chronic kidney disease, stage 3b; R79.9 Abnormal finding of blood chemistry, unspecified; N39.0 Urinary tract infection, site not specified; N13.1 Hydronephrosis with ureteral stricture, not elsewhere classified; Z96.0 Presence of urogenital implants; Z87.440 Personal history of urinary (tract) infections

== ENCOUNTER 2023-05-12 14:22 | Observation (INO) ==
[2023-05-12 14:54] LABS: BILIRUBIN,URINE 3+ (NEGATIVE); CLARITY,URINE Turbid (CLEAR); COLOR,URINE Red (YELLOW); GLUCOSE, URINE (UA) 1+ (NEGATIVE); KETONES,URINE 1+ (NEGATIVE); LEUKOCYTE ESTERASE ,URINE 3+ (NEGATIVE); NITRITE,URINE Positive (NEGATIVE); PH,URINE 5.5 (5-9); PROTEIN,URINE 3+ (NEGATIVE); URINE, BLOOD 3+ (NEGATIVE)
[2023-05-12 14:56] LABS: URINE RBC, MICROSCOPIC TNTC (0-2); URINE WBC, MICROSCOPIC 30-50 (0-2)
[2023-05-12 14:57] LABS: BACTERIA,URINE 3+ (NOT PRESENT)
[2023-05-12] MEDS ORDERED: ROCEPHIN 1 GM/50 ML D5W 1 GM/50 ML BAG IV ONE (14:58)
[2023-05-12 15:09] LABS: BASOPHILS # (AUTO) 0.1 K/uL (0-0.2); BASOPHILS % (AUTO) 0.4 % (0.0-3.0); EOSINOPHILS # (AUTO) 0.2 K/ul (0.0-0.7); EOSINOPHILS % (AUTO) 1.9 % (0.0-7.0); HEMATOCRIT 37.2 % (37.0-47.0); HEMOGLOBIN 11.6 g/dl (12.0-16.0); IMMATURE GRANULOCYTE # (AUTO) 0.1 (0.0-1.0); IMMATURE GRANULOCYTE % (AUTO) 0.4 % (0.0-5.0); LYMPHOCYTES # (AUTO) 2.4 K/uL (0.60-3.4); LYMPHOCYTES % (AUTO) 21.5 (10.0-50.0); MEAN CORPUSCULAR HEMOGLOBIN 27.6 pg (27.0-31.0); MEAN CORPUSCULAR HGB CONC 31.2 (31.8-35.4); MEAN CORPUSCULAR VOLUME 88.4 fl (81.0-99.0); MONOCYTES # (AUTO) 0.9 K/uL (0.4-2.0); NEUTROPHILS # (AUTO) 7.6 K/ul (2.0-6.9); NEUTROPHILS % (AUTO) 67.8 % (42.2-75.2); PLATELET COUNT 262 10^3/uL (140-440); RED BLOOD COUNT 4.21 10^6/ul (4.20-5.40); WHITE BLOOD COUNT 11.26 K/ul (4.6-10.2)
[2023-05-12 15:21] LABS: ALBUMIN 4.11 g/dL (3.5-5.0); ALKALINE PHOSPHATASE 78.8 U/L (38-126); BILIRUBIN,TOTAL 0.35 mg/dL (0.2-1.3); BLOOD UREA NITROGEN 24.8 mg/dL (7-17); CALCIUM 8.7 mg/dL (8.4-10.2); CARBON DIOXIDE 23.1 mmol/L (22-30.0); CHLORIDE 102.6 mmol/L (98-107); CREATININE 1.85 mg/dL (0.60-1.30); GLUCOSE 286.2 mg/dL (74-106); POTASSIUM 3.7 mmol/L (3.5-5.1); SODIUM 137.7 mmol/L (134.5-145); TOTAL PROTEIN 8.43 g/dL (6.3-8.2)
--- NOTE | 2023-05-12 15:34 | ED.PDOC ---
General ED Provider: Dr. ROB MOSLEY MD Chief Complaint: Urinary Problem Stated Complaint: abdominal pain, chronic forde cath not changed for one month Time Seen by Provider: 05/12/23 14:39 Information Source: Patient Primary Care Provider: ANUJA DÍAZ APRN Nursing and Triage Documentation Reviewed and Agree: Yes Review of Systems Review Of Systems Constitutional: Reports Malaise and Weakness All Other Systems: Reviewed and Negative [facility] Medical History Cataract H26.9 - Unspecified cataract (ICD-10) Cataract (lens) fragments in eye following cataract surgery, bilateral H59.023 - Cataract (lens) fragments in eye following cataract surgery, bilateral (ICD-10) Decubitus ulcer L89.90 - Pressure ulcer of unspecified site, unspecified stage (ICD-10) Diabetes mellitus type 2, uncontrolled E11.65 - Type 2 diabetes mellitus with hyperglycemia (ICD-10) Essential (primary) hypertension I10 - Essential (primary) hypertension (ICD-10) skilled nursing resident Z59.3 - Problems related to living in residential institution (ICD-10) S/P bilateral BKA (below knee amputation) Z89.512 - Acquired absence of left leg below knee (ICD-10) Urinary incontinence R32 - Unspecified urinary incontinence (ICD-10) Urinary tract infection N39.0 - Urinary tract infection, site not specified (ICD-10) Family History Other Unknown family medical history Social History Smoking and tobacco status: Former smoker Tobacco: How many years used: 10 Passive smoking exposure: Yes Second hand smoke exposure: Yes Smoking risk assessment performed: No Alcohol intake: never Counseling given: No Substance use type: does not use Counseling given: No Cora/zoroastrianism: Gnosticism Special cora needs: No Agree to transfusion: Yes Adopted: Yes Caregiver/support person: Yes Household members: spouse Housing: house Lives independently: Yes Number of children: 0 Highest education level completed: some college, no degree Financial difficulty paying for basics: not applicable service: No skilled nursing: No Current occupational status: unemployed and disabled Current occupational exposures/hazards: No 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 Pets and animals: Yes Leisure activites: reading History of recent travel: No Sexually active: No Do you think of yourself as: straight/heterosexual Current gender identity: female Seatbelt use: always Helmet use: No Drives intoxicated or rides with intoxicated tank driver: No Water heater temperature set < 120 degrees: Yes Working smoke detector in home: Yes Fire extinguisher in home: Yes Carbon monoxide detector in home: Yes Firearms in home: No Surgical History bilateral knee amputation H/O lithotripsy Z98.89 - Other specified postprocedural states (ICD-10) Status post appendectomy Z90.49 - Acquired absence of other specified parts of digestive tract (ICD- 10) Status post cholecystectomy Z90.49 - Acquired absence of other specified parts of digestive tract (ICD- 10) Status post hysterectomy Z90.710 - Acquired absence of both cervix and uterus (ICD-10) Status post tonsillectomy Z90.89 - Acquired absence of other organs (ICD-10) Female Reproductive History Menstrual Age of Menarche: 13 Hx Hysterectomy: Yes Hx Tubal Ligation: No Physical Exam Physical Exam Appearance: Reports Ill-appearing Ill-appearing: None Pain Distress: None Eyes: Reports SAMREEN and EOMI ENT: Reports Ears normal and Nose normal Neck: Supple Respiratory: Reports Airway patent Cardiovascular: Reports RRR, Pulses normal and No murmur GI/: Reports Soft, Bowel sounds normal and Tender (suprapubic) Musculoskeletal: Reports Normal strength, ROM intact and Other (bilateral BKA) Skin: Reports Warm Neurological: Reports Sensation intact and Motor intact Psychiatric: Reports Affect appropriate Interpretation EKG Interpretation EKG Interpretation By: ED Physician Time of EKG #1: 14:55 Rate: Normal Rhythm: Sinus Ectopy: None Moriah: NL ST Segment: Normal Interpretation: no acute ST changes Critical Care Note Critical Care Note Total Critical Care Time (mins): 0 Course Course 05/12/23 14:55 05/12/23 14:55 Orders, Labs, Meds: Lab Review 05/12/23 05/12/23 14:47 14:55 WBC 11.26 H RBC 4.21 Hgb 11.6 L Hct 37.2 MCV 88.4 MCH 27.6 MCHC 31.2 L RDW Coeff of Veda 14.0 Plt Count 262 Immature Gran % (Auto) 0.4 Neut % (Auto) 67.8 Lymph % (Auto) 21.5 Barry % (Auto) 8.0 Eos % (Auto) 1.9 Baso % (Auto) 0.4 Neut # (Auto) 7.6 H Lymph # (Auto) 2.4 Barry # (Auto) 0.9 Eos # (Auto) 0.2 Baso # (Auto) 0.1 Immature Gran # (Auto) 0.1 Sodium 137.7 Potassium 3.70 Chloride 102.6 Carbon Dioxide 23.1 Anion Gap 15.70 BUN 24.8 H Creatinine 1.85 H Estimated GFR (MDRD) 28.00 BUN/Creatinine Ratio 13.40 Glucose 286.2 H Lactic Acid 2.19 H Calcium 8.70 Total Bilirubin 0.35 AST 23.0 ALT 17.0 Alkaline Phosphatase 78.8 Total Protein 8.43 H Albumin 4.11 Globulin 4.32 Albumin/Globulin Ratio 0.95 Urine Color Red Urine Clarity Turbid Urine pH 5.5 Ur Specific [place] 1.010 Urine Protein 3+ H Urine Glucose (UA) 1+ H Urine Ketones 1+ H Urine Blood 3+ H Urine Nitrite Positive H Urine Bilirubin 3+ H Urine Urobilinogen 2.0 H Ur Leukocyte Esterase 3+ H Urine Microscopic RBC Tntc Urine Microscopic WBC 30-50 Ur Squamous Epith Cells Not Reportable Urine Bacteria 3+ Orders Category Date Time Status EKG-(ED ONLY) Stat CARDIO 05/12/23 14:46 Completed IV [ED IV/MEDIPORT/POWERPORT] .ONCE EMERGENCY 05/12/23 14:46 Active 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] .ONCE EMERGENCY 05/12/23 14:46 Active BLOOD CULTURE Stat LAB 05/12/23 14:55 Received CBC W/ AUTO DIFF Stat LAB 05/12/23 14:55 Completed CMP [COMPREHENSIVE METABOLIC PANEL] Stat LAB 05/12/23 14:55 Completed LACTIC ACID Stat LAB 05/12/23 14:55 Completed URINALYSIS C & S IF INDICATED Stat LAB 05/12/23 14:47 Completed URINE CULTURE Stat LAB 05/12/23 14:47 Received 0.9 % Sodium Chloride [Saline Flush] Meds 05/12/23 14:46 Active 1 syr IVF PRN PRN Ceftriaxone/D5w 1 gm Premix [Rocephin 1 gm/50 ml D5w] Meds 05/12/23 14:58 Discontinued 1 gm in 50 ml IV ONCE Insulin Regular, Human [Humulin R] Meds 05/12/23 15:43 Discontinued 7 unit SUBCUT ONCE STA Sodium Chloride 0.9% [Sodium Chloride] 1,000 ml Meds 05/12/23 15:36 Disc ontinued IV BOLUS Medications Generic Name Dose Route Start Last Admin Trade Name Freq PRN Reason Stop Dose Admin Hydrocodone Bitart/Acetaminophen 1 tab 05/12/23 18:29 05/12/23 20:20 Hydrocodone Bit/Acetaminophen 10/325 Mg Tablet PO 1 tab QID PRN Administration MODERATE PAIN Bupropion HCl 300 mg 05/13/23 09:00 Bupropion Hcl 150 Mg Tab.Er.24h PO QAM GABI Buspirone HCl 30 mg 05/12/23 21:00 05/12/23 20:19 Buspirone Hcl 10 Mg Tablet PO 30 mg BID GABI Administration Escitalopram Oxalate 20 mg 05/13/23 09:00 Escitalopram Oxalate 10 Mg Tablet PO DAILY GABI Gabapentin 600 mg 05/12/23 21:00 05/12/23 20:20 Gabapentin 300 Mg Capsule PO 600 mg TID GABI Administration Levofloxacin/Dextrose 750 mg in 150 mls @ 100 mls/hr 05/12/23 18:10 05/12/23 20:21 Levaquin 750 Mg/150 Ml D5w IV 05/15/23 18:09 100 mls/hr DAILY GABI Administration Insulin Human Regular 0 unit 05/12/23 18:11 05/12/23 20:19 Insulin Regular, Human 100 Unit/Ml (3ml) Vial SUBCUT 4 unit PRN PRN Administration Hyperglycemia Protocol Methocarbamol 500 mg 05/12/23 21:00 05/12/23 20:20 Methocarbamol 500 Mg Tablet PO 500 mg BID GABI Administration Metoprolol Tartrate 25 mg 05/12/23 21:00 05/12/23 20:20 Metoprolol Tartrate 25 Mg Tablet PO 25 mg BID GABI Administration Simvastatin 20 mg 05/13/23 09:00 Simvastatin 10 Mg Tablet PO DAILY GABI Sodium Chloride 1 syr 05/12/23 14:46 05/12/23 15:54 0.9% Sodium Chloride 10 Ml Disp.Syrin IVF 1 syr PRN PRN Administration To flush IV Trazodone HCl 100 - 150 mg 05/12/23 21:00 05/12/23 20:20 Trazodone Hcl 50 Mg Tablet PO 100 mg BEDTIME GABI Administration Discontinued Medications Generic Name Dose Route Start Last Admin Trade Name Kalia LÓPEZ Reason Stop Dose Admin CEFTRIAXONE/D5W 1 GM PREMIX 1 gm in 50 mls @ 100 mls/hr 05/12/23 14:58 05/12/23 15:53 Rocephin 1 Gm/50 Ml D5w IV 05/12/23 15:27 100 mls/hr ONCE ONE Administration Sodium Chloride 1,000 mls @ 2,000 mls/hr 05/12/23 15:36 05/12/23 15:53 Sodium Chloride IV 05/12/23 16:05 2,000 mls/hr BOLUS STA Administration Insulin Human Regular 7 unit 05/12/23 15:43 05/12/23 16:00 Insulin Regular, Human 100 Unit/Ml (3ml) Vial SUBCUT 05/12/23 15:44 7 unit ONCE STA Administration Simvastatin 10 mg 05/12/23 18:30 05/12/23 19:06 Simvastatin 10 Mg Tablet PO Not Given DAILY GABI Vital Signs: Temp Pulse Resp BP Pulse Ox 05/12/23 14:23 98.2 F 76 20 148/75 H 96 58 years old female with past medical history of diabetes, hypertension, bilateral below-knee amputation, GERD, recurrent UTI, who came to the ER from home for suprapubic pain. Patient has a chronic Forde catheter which has not changed the catheter for 1 month. Urinalysis showing UTI patient was given 1 g Rocephin IV Labs showed lactic acid 2.1 patient is receiving 2 L NS bolus. Patient also has a history of chronic kidney disease stage IIIb currently creatinine 1.85.Forde catheter was changed. Case was discussed with hospitalist Saleem Olivarez and she accepted the patient to admitted to her services for further IV antibiotics and follow up with blood and urine cultures Discharge Plan Discharge Patient Disposition: ADMITTED INPATIENT Discharge Problem: Catheter-associated urinary tract infection, Sepsis Did you review [place] PROSTHETIC DENTIST for ALL controlled substances?: Not Applicable ED Provider: ROB MOSLEY Condition: Stable Physician Progress Note: []
[2023-05-12] MEDS ORDERED: SODIUM CHLORIDE 1,000 ML IV STA (15:36)
[2023-05-12] MEDS ORDERED: HUMULIN R SUBCUT STA (15:43)
[2023-05-12 17:26] VITALS: BMI 31.4
[2023-05-12] MEDS ORDERED: LEVAQUIN 750 MG/150 ML D5W 750 MG/150 ML BAG IV SCH (18:10)
[2023-05-12] MEDS ORDERED: ZOCOR PO SCH (18:30)
[2023-05-12] MEDS: BUSPAR PO SCH (20:19)
[2023-05-12] MEDS: HUMULIN R SUBCUT PRN (20:19)
[2023-05-12] MEDS: ROBAXIN PO SCH (20:20)
[2023-05-12] MEDS: DESYREL PO SCH (20:20)
[2023-05-12] MEDS: LOPRESSOR PO SCH (20:20)
[2023-05-12] MEDS: NEURONTIN PO SCH (20:20)
[2023-05-12] MEDS: NORCO 10-325 PO PRN (20:20)
[2023-05-13] MEDS: NORCO 10-325 PO PRN ×2 (02:43→20:22)
[2023-05-13 05:24] LABS: BASOPHILS # (AUTO) 0.1 K/uL (0-0.2); BASOPHILS % (AUTO) 0.5 % (0.0-3.0); EOSINOPHILS # (AUTO) 0.3 K/ul (0.0-0.7); EOSINOPHILS % (AUTO) 2.8 % (0.0-7.0); HEMATOCRIT 34.1 % (37.0-47.0); HEMOGLOBIN 10.2 g/dl (12.0-16.0); IMMATURE GRANULOCYTE % (AUTO) 0.4 % (0.0-5.0); LYMPHOCYTES # (AUTO) 3.1 K/uL (0.60-3.4); LYMPHOCYTES % (AUTO) 30.3 (10.0-50.0); MEAN CORPUSCULAR HGB CONC 29.9 (31.8-35.4); MEAN CORPUSCULAR VOLUME 90.2 fl (81.0-99.0); MONOCYTES # (AUTO) 0.9 K/uL (0.4-2.0); MONOCYTES % (AUTO) 8.9 (0-10); NEUTROPHILS # (AUTO) 5.8 K/ul (2.0-6.9); NEUTROPHILS % (AUTO) 57.1 % (42.2-75.2); PLATELET COUNT 250 10^3/uL (140-440); RED BLOOD COUNT 3.78 10^6/ul (4.20-5.40); WHITE BLOOD COUNT 10.12 K/ul (4.6-10.2)
[2023-05-13 05:54] LABS: ALANINE AMINOTRANSFERASE 11.8 U/L (0-35); ALBUMIN 3.45 g/dL (3.5-5.0); ALKALINE PHOSPHATASE 62.9 U/L (38-126); ASPARTATE AMINO TRANSFERASE 19.6 U/L (14-36); BILIRUBIN,TOTAL 0.24 mg/dL (0.2-1.3); BLOOD UREA NITROGEN 19.9 mg/dL (7-17); CALCIUM 7.81 mg/dL (8.4-10.2); CARBON DIOXIDE 23.6 mmol/L (22-30.0); CHLORIDE 107.1 mmol/L (98-107); CREATININE 1.52 mg/dL (0.60-1.30); GLUCOSE 119.9 mg/dL (74-106); POTASSIUM 3.46 mmol/L (3.5-5.1); TOTAL PROTEIN 7.33 g/dL (6.3-8.2)
[2023-05-13] MEDS: BUSPAR PO SCH ×2 (09:13→20:21)
[2023-05-13] MEDS: LOPRESSOR PO SCH ×2 (09:13→20:21)
[2023-05-13] MEDS: WELLBUTRIN XL PO SCH (09:13)
[2023-05-13] MEDS: ROBAXIN PO SCH ×2 (09:13→20:21)
[2023-05-13] MEDS: NEURONTIN PO SCH ×3 (09:13→20:21)
[2023-05-13] MEDS: LEXAPRO PO SCH (09:13)
--- NOTE | 2023-05-13 11:23 | PCM ---
Date of Service Date Seen by Provider: 05/13/23 Time Seen by Provider: 09:05 Admit Day/Time Admission Date: 05/12/23 Admission Time: 17:00 Reason for Admission Chief Complaint: UTI Hospital Provider Hospital Provider: TALA LAMA, [facility] Primary Care Physician Primary Care Physician: ANUJA DÍAZ APRN History of Present Illness History of Present Illness: 58 yo female presented to the ER with complaints of blood and pus in her urine. 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 States she has not felt well since of last week and has had lower abdominal pain. Reports she noted the blood and pus in her urine yesterday and came to the hospital. Per chart review, patient has been admitted frequently for UTIs with different organisms present. Denies any fever at home but does report chills. Denies any other symptoms. Case Discussed With Case Discussed With: Patient's case was discussed with the ER Physicians, Dr. Metzger [facility] Medical History Cataract H26.9 - Unspecified cataract (ICD-10) Cataract (lens) fragments in eye following cataract surgery, bilateral H59.023 - Cataract (lens) fragments in eye following cataract surgery, bilateral (ICD-10) Decubitus ulcer L89.90 - Pressure ulcer of unspecified site, unspecified stage (ICD-10) Diabetes mellitus type 2, uncontrolled E11.65 - Type 2 diabetes mellitus with hyperglycemia (ICD-10) Essential (primary) hypertension I10 - Essential (primary) hypertension (ICD-10) snf resident Z59.3 - Problems related to living in residential institution (ICD-10) S/P bilateral BKA (below knee amputation) Z89.512 - Acquired absence of left leg below knee (ICD-10) Urinary incontinence R32 - Unspecified urinary incontinence (ICD-10) Urinary tract infection N39.0 - Urinary tract infection, site not specified (ICD-10) Surgical History bilateral knee amputation H/O lithotripsy Z98.89 - Other specified postprocedural states (ICD-10) Status post appendectomy Z90.49 - Acquired absence of other specified parts of digestive tract (ICD- 10) Status post cholecystectomy Z90.49 - Acquired absence of other specified parts of digestive tract (ICD- 10) Status post hysterectomy Z90.710 - Acquired absence of both cervix and uterus (ICD-10) Status post tonsillectomy Z90.89 - Acquired absence of other organs (ICD-10) Family History Other Unknown family medical history Social History Smoking and tobacco status: Former smoker Tobacco: How many years used: 10 Passive smoking exposure: Yes Second hand smoke exposure: Yes Smoking risk assessment performed: No Alcohol intake: never Counseling given: No Substance use type: does not use Counseling given: No Cora/adventism: Druze Special cora needs: No Agree to transfusion: Yes Adopted: Yes Caregiver/support person: Yes Household members: spouse Housing: house Lives independently: Yes Number of children: 0 Highest education level completed: some college, no degree Financial difficulty paying for basics: not applicable service: No snf: No Current occupational status: unemployed and disabled Current occupational exposures/hazards: No 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 Pets and animals: Yes Leisure activites: reading History of recent travel: No Sexually active: No Do you think of yourself as: straight/heterosexual Current gender identity: female Seatbelt use: always Helmet use: No Drives intoxicated or rides with intoxicated lunch truck driver: No Water heater temperature set < 120 degrees: Yes Working smoke detector in home: Yes Fire extinguisher in home: Yes Carbon monoxide detector in home: Yes Firearms in home: No Allergies Allergies Allergy/AdvReac Type Severity Reaction Status Date / Time iodine Allergy Anaphylaxis Verified 05/12/23 14:27 promethazine HCl Allergy rash Verified 05/12/23 14:27 [From Phenergan] empagliflozin AdvReac Intermediate frequent Verified 03/16/23 13:39 [From Jardiance] UTI's Iodinated Contrast Media AdvReac Anaphylaxis Verified 05/12/23 14:27 [Iodinated Contrast- Oral and IV Dye] Current Medications Home Medications blood sugar diagnostic ([employer] Ultra Blue Test Strip) #100 ea 11/19/18 [Rx Confirmed 05/12/23 Last Taken Unknown] blood-glucose meter ([employer] Verio Meter) #1 ea 02/10/19 [Rx Confirmed 05/12/23 Last Taken Unknown] lancets (OneTouch UltraSoft Lancets) See Rx Instructions .Route .COMPLEX #200 ea 08/06/20 [Rx Confirmed 05/12/23 Last Taken Unknown] hydrocodone 10 mg-acetaminophen 325 mg tablet 1 tab PO QID 09/06/21 [History Confirmed 05/12/23 Last Taken 01/19/23] methocarbamol 500 mg tablet 500 mg PO BID 05/01/22 [History Confirmed 05/12/23 Last Taken 01/19/23] C.COMMODE (COMMODE) #1 ea 05/02/22 [Rx Confirmed 05/12/23 Last Taken Unknown] gabapentin 600 mg tablet 600 mg PO TID 06/02/22 [History Confirmed 05/12/23 Last Taken 01/19/23] metoprolol tartrate 25 mg tablet See Rx Instructions .Route .COMPLEX #180 tabs 01/06/23 [Rx Confirmed 05/12/23 Last Taken 01/19/23] pen needle, diabetic 31 gauge x 3/16" (TRUEplus Pen Needle) #100 ea 01/08/23 [Rx Confirmed 05/12/23 Last Taken Unknown] insulin glargine 100 unit/mL (3 mL) subcutaneous pen (Lantus Solostar U-100 Insulin) 70 unit (0.7 mL) subcut QDAY 30 days #21 ea 02/25/23 [Rx Confirmed 05/12/23 Last Taken Unknown] ergocalciferol (vitamin D2) 1,250 mcg (50,000 unit) capsule (Vitamin D2) See Rx Instructions .Route .COMPLEX #4 caps 03/03/23 [Rx Confirmed 05/12/23 Last Taken Unknown] bupropion HCl 300 mg 24 hr tablet, extended release 300 mg PO QAM #90 tabs 03/16/23 [Rx Confirmed 05/12/23 Last Taken Unknown] buspirone 30 mg tablet 30 mg PO BID 90 days #180 tabs 03/16/23 [Rx Confirmed 05/12/23 Last Taken Unknown] insulin lispro 100 unit/mL subcutaneous pen (Humalog KwikPen (U-100) Insulin) See Rx Instructions .Route .COMPLEX #15 mL 05/11/23 [Rx Confirmed 05/12/23 Last Taken Unknown] pantoprazole 20 mg tablet,delayed release See Rx Instructions .Route .COMPLEX #30 tabs 05/11/23 [Rx Confirmed 05/12/23 Last Taken Unknown] simvastatin 20 mg tablet See Rx Instructions .Route .COMPLEX #30 tabs 05/11/23 [Rx Confirmed 05/12/23 Last Taken Unknown] sitagliptin phosphate 100 mg tablet (Januvia) 100 mg PO DAILY #90 tabs 05/11/23 [Rx Confirmed 05/12/23 Last Taken Unknown] escitalopram oxalate 20 mg tablet 20 mg PO QDAY #90 tabs 05/12/23 [Rx Confirmed 05/12/23 Last Taken Unknown] trazodone 100 mg tablet 100 - 150 mg PO QHS PRN insomnia 90 days #135 tabs 05/12/23 [Rx Confirmed 05/12/23 Last Taken Unknown] Home Hydrocodone Bitart/Acetaminophen (Hydrocodone Bit/Acetaminophen 10/325 Mg Tablet) 1 tab PO QID PRN PRN Reason: MODERATE PAIN Last Admin: 05/13/23 02:43 Dose: 1 tab Bupropion HCl (Bupropion Hcl 150 Mg Tab.Er.24h) 300 mg PO QAM [facility] Last Admin: 05/13/23 09:13 Dose: 300 mg Buspirone HCl (Buspirone Hcl 10 Mg Tablet) 30 mg PO BID [facility] Last Admin: 05/13/23 09:13 Dose: 30 mg Escitalopram Oxalate (Escitalopram Oxalate 10 Mg Tablet) 20 mg PO DAILY [facility] Last Admin: 05/13/23 09:13 Dose: 20 mg Gabapentin (Gabapentin 300 Mg Capsule) 600 mg PO TID [facility] Last Admin: 05/13/23 09:13 Dose: 600 mg Levofloxacin/Dextrose (Levaquin 750 Mg/150 Ml D5w) 750 mg in 150 mls @ 100 mls/hr IV Q48H [facility] Stop: 05/18/23 20:59 Insulin Human Regular (Insulin Regular, Human 100 Unit/Ml (3ml) Vial) 0 unit WATKINS BCUT PRN PRN; Protocol PRN Reason: Hyperglycemia Last Admin: 05/12/23 20:19 Dose: 4 unit Methocarbamol (Methocarbamol 500 Mg Tablet) 500 mg PO BID [facility] Last Admin: 05/13/23 09:13 Dose: 500 mg Metoprolol Tartrate (Metoprolol Tartrate 25 Mg Tablet) 25 mg PO BID [facility] Last Admin: 05/13/23 09:13 Dose: 25 mg Simvastatin (Simvastatin 10 Mg Tablet) 20 mg PO BEDTIME [facility] Sodium Chloride (0.9% Sodium Chloride 10 Ml Disp.Syrin) 1 syr IVF PRN PRN PRN Reason: To flush IV Last Admin: 05/12/23 15:54 Dose: 1 syr Trazodone HCl (Trazodone Hcl 50 Mg Tablet) 100 - 150 mg PO BEDTIME [facility] Last Admin: 05/12/23 20:20 Dose: 100 mg Discontinued Medications CEFTRIAXONE/D5W 1 GM PREMIX (Rocephin 1 Gm/50 Ml D5w) 1 gm in 50 mls @ 100 mls/hr IV ONCE ONE Stop: 05/12/23 15:27 Last Admin: 05/12/23 15:53 Dose: 100 mls/hr Sodium Chloride (Sodium Chloride) 1,000 mls @ 2,000 mls/hr IV BOLUS STA Stop: 05/12/23 16:05 Last Admin: 05/12/23 15:53 Dose: 2,000 mls/hr Levofloxacin/Dextrose (Levaquin 750 Mg/150 Ml D5w) 750 mg in 150 mls @ 100 mls/hr IV DAILY GABI Stop: 05/15/23 18:09 Last Admin: 05/12/23 20:21 Dose: 100 mls/hr Levofloxacin/Dextrose (Levaquin 750 Mg/150 Ml D5w) 750 mg in 150 mls @ 100 mls/hr IV BEDTIME GABI Stop: 05/15/23 18:09 Insulin Human Regular (Insulin Regular, Human 100 Unit/Ml (3ml) Vial) 7 unit SUBCUT ONCE STA Stop: 05/12/23 15:44 Last Admin: 05/12/23 16:00 Dose: 7 unit Simvastatin (Simvastatin 10 Mg Tablet) 10 mg PO DAILY [facility] Last Admin: 05/12/23 19:06 Dose: Not Given Review of Systems Constitutional: Reports Chills Head: Reports Normocephalic Eyes: Reports No symptoms Ears: Reports No symptoms Nose: Reports No symptoms Mouth: Reports No symptoms Throat: Reports No symptoms Cardiovascular: Reports No symptoms Respiratory: Reports No symptoms Gastrointestinal: Reports No symptoms Genitourinary: Reports Hematuria Musculoskeletal: Reports No symptoms Endocrine: Reports No symptoms Hematology: Reports No symptoms Immunology: Reports No symptoms Neurological: Reports No symptoms Psychiatric: Reports No symptoms Physical examination Most Recent Vital Signs: Most Recent Vital Signs Temperature 97.5 F L 05/13/23 10:00 Temperature Source Oral 05/13/23 10:00 Temperature Source Infrared 05/12/23 14:23 Pulse Rate 70 05/13/23 10:00 Respiratory Rate 19 05/13/23 10:00 Blood Pressure 132/79 05/13/23 10:00 Blood Pressure Mean 96 05/13/23 10:00 Blood Pressure Left Arm 160/78 05/12/23 17:09 Blood Pressure Location Left Arm 05/13/23 10:00 Blood Pressure Position Supine 05/13/23 10:00 O2 Sat by Pulse Oximetry 96 05/13/23 10:00 Oxygen Delivery Method Room Air 05/13/23 10:00 Height 5 ft 6 in 05/12/23 17:09 Weight 194 lb 9 oz 05/12/23 17:09 Telemetry Heart Rate 86 11/18/21 11:45 Telemetry SPO2 96 11/18/21 11:45 Appearance: Positive No Apparent Distress, Alert and Oriented x3 and Obese Skin: Positive Warm, Good Turgor and Good Color HEENT: Positive Normocephalic Neck: Positive Supple and Midline Trachea Chest/Lungs: Positive Symmetrical With Equal Breath Sounds, Clear to Auscultation Bilaterally and Good Air Movement all 4 Lung Chiang Heart: Positive RRR and Pulses Normal GI/: Positive Soft, Bowel Sounds Normal and Tender (bilateral lower quad) Musculoskeletal: Positive Not Examined Extremities: Positive Amputations (bilateral BKA) Neurological: Positive Sensation Intact, Motor intact, Alert, Oriented and Muscle Strength 5/5 in Upper and Lower Extremities Bilaterally Psychiatric: Positive Oriented x4, Appropriate Mood, Appropriate Affect, Intact Memory, Good Short-Term Recall and Good Long-Term Recall Labs This Visit Labs This Visit: Labs This Visit 05/12/23 05/12/23 05/13/23 14:47 14:55 05:00 WBC 11.26 H 10.12 RBC 4.21 3.78 L Hgb 11.6 L 10.2 L Hct 37.2 34.1 L MCV 88.4 90.2 MCH 27.6 27.0 MCHC 31.2 L 29.9 L RDW Coeff of Veda 14.0 14.0 Plt Count 262 250 Immature Gran % (Auto) 0.4 0.4 Neut % (Auto) 67.8 57.1 Lymph % (Auto) 21.5 30.3 [place] % (Auto) 8.0 8.9 Eos % (Auto) 1.9 2.8 Baso % (Auto) 0.4 0.5 Neut # (Auto) 7.6 H 5.8 Lymph # (Auto) 2.4 3.1 [place]k # (Auto) 0.9 0.9 Eos # (Auto) 0.2 0.3 Baso # (Auto) 0.1 0.1 Immature Gran # (Auto) 0.1 0.0 Sodium 137.7 139.0 Potassium 3.70 3.46 L Chloride 102.6 107.1 H Carbon Dioxide 23.1 23.6 Anion Gap 15.70 11.76 BUN 24.8 H 19.9 H Creatinine 1.85 H 1.52 H Estimated GFR (MDRD) 28.00 35.00 BUN/Creatinine Ratio 13.40 13.09 Glucose 286.2 H 119.9 H D Lactic Acid 2.19 H Calcium 8.70 7.81 L Total Bilirubin 0.35 0.24 AST 23.0 19.6 ALT 17.0 11.8 Alkaline Phosphatase 78.8 62.9 Total Protein 8.43 H 7.33 Albumin 4.11 3.45 L Globulin 4.32 3.88 Albumin/Globulin Ratio 0.95 0.88 Urine Color Red Urine Clarity Turbid Urine pH 5.5 Ur Specific [place] 1.010 Urine Protein 3+ H Urine Glucose (UA) 1+ H Urine Ketones 1+ H Urine Blood 3+ H Urine Nitrite Positive H Urine Bilirubin 3+ H Urine Urobilinogen 2.0 H Ur Leukocyte Esterase 3+ H Urine Microscopic RBC Tntc Urine Microscopic WBC 30-50 Ur Squamous Epith Cells Not Reportable Urine Bacteria 3+ Microbiology This Visit 05/12/23 14:47 Urine,Catheterized Urine Culture - Preliminary Review Statement Review Statement: I have independently reviewed and interpreted the labs/EKGs/imaging that were ordered by the ER provider. I have reviewed all outside records that are available currently in our EMR including imaging/notes/labs from previous visits. Plan Plan: 1. UTI - urine culture pending, levaquin ordered due to previous sensitivity reports, catheter changed in ER 2. Chronic Kidney Disease - at baseline, monitor 3. Diabetes Mellitus, Type 2 - chronic, stable, accuchecks qid with ssi, continue home insulin 4. Hypertension - chronic, stable, continue home medications 5. Hyperlipidemia - chronic, stable, continue home medications DVT Prophylaxis: Bed mobility Time Spent: Greater than 80 minutes spent with patient, 50% of the time spent with this patient was devoted to counseling and coordination of care. Advanced Care Plannin minutes spent discussing advance care planning. Disposition: Admit to: Med/surg Observation Full Code Discussed Plan of Care with Dr. Ruth Rankin. Medications Medication Orders: Medications Ordered Category Date Time Status 0.9 % Sodium Chloride [Saline Flush] Meds 05/12/23 14:46 Active 1 syr IVF PRN PRN Bupropion HCl [Wellbutrin Xl] Meds 05/13/23 09:00 Active 300 mg PO QAM Buspirone HCl [Buspar] Meds 05/12/23 21:00 Active 30 mg PO BID Escitalopram Oxalate [Lexapro] Meds 05/13/23 09:00 Active 20 mg PO DAILY Gabapentin [Neurontin] Meds 05/12/23 21:00 Active 600 mg PO TID Hydrocodone Bit/Acetaminophen [[place] 10-325] Meds 05/12/23 18:29 Active 1 tab PO QID PRN Insulin Regular, Human [Humulin R] Meds 05/12/23 18:11 Active See Protocol SUBCUT PRN PRN Levofloxacin/D5w [Levaquin 750 mg/150 ml D5w] Meds 05/15/23 21:00 Active 750 mg in 150 ml IV Q48H Methocarbamol [Robaxin] Meds 05/12/23 21:00 Active 500 mg PO BID Metoprolol Tartrate [Lopressor] Meds 05/12/23 21:00 Active 25 mg PO BID Simvastatin [Zocor] Meds 05/13/23 21:00 Active 20 mg PO BEDTIME Trazodone HCl [Desyrel] Meds 05/12/23 21:00 Active 100 - 150 mg PO BEDTIME
[2023-05-13] MEDS: HUMULIN R SUBCUT PRN ×3 (13:30→20:43)
[2023-05-13] MEDS: DIFLUCAN PO SCH (15:51)
[2023-05-13] MEDS ORDERED: K-DUR PO ONE (15:51)
[2023-05-13] MEDS: DESYREL PO SCH (20:21)
[2023-05-13] MEDS ORDERED: LEVAQUIN 750 MG/150 ML D5W 750 MG/150 ML BAG IV SCH (21:00)
[2023-05-13] MEDS ORDERED: ZOCOR PO SCH (21:00)
[2023-05-14] MEDS: NORCO 10-325 PO PRN ×2 (02:50→12:40)
[2023-05-14 05:11] LABS: BASOPHILS % (AUTO) 0.4 % (0.0-3.0); EOSINOPHILS # (AUTO) 0.3 K/ul (0.0-0.7); EOSINOPHILS % (AUTO) 2.9 % (0.0-7.0); HEMATOCRIT 35.6 % (37.0-47.0); HEMOGLOBIN 10.6 g/dl (12.0-16.0); IMMATURE GRANULOCYTE # (AUTO) 0.1 (0.0-1.0); IMMATURE GRANULOCYTE % (AUTO) 0.5 % (0.0-5.0); LYMPHOCYTES # (AUTO) 2.8 K/uL (0.60-3.4); LYMPHOCYTES % (AUTO) 24.6 (10.0-50.0); MEAN CORPUSCULAR HEMOGLOBIN 27.1 pg (27.0-31.0); MEAN CORPUSCULAR HGB CONC 29.8 (31.8-35.4); MONOCYTES % (AUTO) 9.3 (0-10); NEUTROPHILS % (AUTO) 62.3 % (42.2-75.2); PLATELET COUNT 245 10^3/uL (140-440); RDW COEFFICIENT OF VARIATION 13.9 % (11.6-14.8); RED BLOOD COUNT 3.91 10^6/ul (4.20-5.40)
[2023-05-14 05:24] LABS: ALANINE AMINOTRANSFERASE 13.7 U/L (0-35); ALBUMIN 3.53 g/dL (3.5-5.0); ALKALINE PHOSPHATASE 65.2 U/L (38-126); ASPARTATE AMINO TRANSFERASE 19.9 U/L (14-36); BILIRUBIN,TOTAL 0.23 mg/dL (0.2-1.3); BLOOD UREA NITROGEN 18.5 mg/dL (7-17); CALCIUM 8.36 mg/dL (8.4-10.2); CARBON DIOXIDE 24.6 mmol/L (22-30.0); CHLORIDE 108.1 mmol/L (98-107); CREATININE 1.62 mg/dL (0.60-1.30); GLUCOSE 202.1 mg/dL (74-106); POTASSIUM 4.43 mmol/L (3.5-5.1); TOTAL PROTEIN 7.33 g/dL (6.3-8.2)
[2023-05-14 05:35] VITALS: BP 112/65; PULSE 69; RESP 16; TEMP 98.1
[2023-05-14] MEDS: HUMULIN R SUBCUT PRN ×2 (06:11→13:30)
[2023-05-14] MEDS: DIFLUCAN PO SCH (08:20)
[2023-05-14] MEDS: LEXAPRO PO SCH (08:20)
[2023-05-14] MEDS: NEURONTIN PO SCH (08:21)
[2023-05-14] MEDS: BUSPAR PO SCH (08:21)
[2023-05-14] MEDS: ROBAXIN PO SCH (08:21)
[2023-05-14] MEDS: WELLBUTRIN XL PO SCH (08:21)
[2023-05-14] MEDS: LOPRESSOR PO SCH (08:21)
--- NOTE | 2023-05-14 09:53 | DCSUM ---
Admission Date Admission Date: 05/12/23 Discharge Date Discharge Date: 05/14/23 Admission Diagnosis Admission Diagnosis: 1. UTI 2. Chronic Kidney Disease 3. Diabetes Mellitus, Type 2 4. Hypertension 5. Hyperlipidemia Discharge Diagnosis Discharge Diagnosis: 1. UTI - Improving 2. Chronic Kidney Disease - Stable 3. Diabetes Mellitus, Type 2 - Stable 4. Hypertension - Stable 5. Hyperlipidemia - Stable Hospital Provider Hospital Provider: TALA LAMA, [facility] [place] Primary Care Physician Primary Care Physician: ANUJA DÍAZ APRN Summary of History and Physical Summary of History and Physical: 58 yo female presented to the ER with complaints of blood and pus in her urine. 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 States she has not felt well since of last week and has had lower abdominal pain. Reports she noted the blood and pus in her urine yesterday and came to the hospital. Per chart review, patient has been admitted frequently for UTIs with different organisms present. Denies any fever at home but does report chills. Denies any other symptoms. Hospital Course Subjective: Patient received levaquin throughout stay due to previous urine cultures of pseudomonas, e.coli, and staph. Urine culture showed mixed growth susp. contaminate. Based on WBC and patient clinically, continuing treatment with levaquin. Patient also reports yeast infection with vaginal itching and irritation. Prescribed diflucan. All other chronic conditions stable. Home medications continued with no changes. Appearance: Pleasant, No Apparent Distress and Alert HEENT: MMM and Supple CVS: No Murmur Abdomen: Soft, Non-Tender and No Distention Respiratory: No Dyspnea Extremities: No Edema Vital Signs: Most Recent Vital Signs Temperature 98.1 F 05/14/23 05:34 Temperature Source Oral 05/14/23 05:34 Temperature Source Infrared 05/12/23 14:23 Pulse Rate 69 05/14/23 05:34 Respiratory Rate 16 05/14/23 05:34 Blood Pressure 112/65 05/14/23 05:34 Blood Pressure Mean 80 05/14/23 05:34 Blood Pressure Left Arm 160/78 05/12/23 17:09 Blood Pressure Location Left Arm 05/14/23 05:34 Blood Pressure Position Supine 05/14/23 05:34 O2 Sat by Pulse Oximetry 94 L 05/14/23 05:34 Oxygen Delivery Method Room Air 05/14/23 05:34 Height 5 ft 6 in 05/12/23 17:09 Weight 194 lb 9 oz 05/12/23 17:09 Telemetry Heart Rate 86 11/18/21 11:45 Telemetry SPO2 96 11/18/21 11:45 Lab Results Last 24 Hours: 05/14/23 04:58 WBC 11.20 H RBC 3.91 L Hgb 10.6 L Hct 35.6 L MCV 91.0 MCH 27.1 MCHC 29.8 L RDW Coeff of Veda 13.9 Plt Count 245 Immature Gran % (Auto) 0.5 Neut % (Auto) 62.3 Lymph % (Auto) 24.6 [place] % (Auto) 9.3 Eos % (Auto) 2.9 Baso % (Auto) 0.4 Neut # (Auto) 7.0 H Lymph # (Auto) 2.8 [place] # (Auto) 1.0 Eos # (Auto) 0.3 Baso # (Auto) 0.0 Immature Gran # (Auto) 0.1 Sodium 140.0 Potassium 4.43 Chloride 108.1 H Carbon Dioxide 24.6 Anion Gap 11.73 BUN 18.5 H Creatinine 1.62 H Estimated GFR (MDRD) 33.00 BUN/Creatinine Ratio 11.41 Glucose 202.1 H D Calcium 8.36 L Total Bilirubin 0.23 AST 19.9 ALT 13.7 Alkaline Phosphatase 65.2 Total Protein 7.33 Albumin 3.53 Globulin 3.80 Albumin/Globulin Ratio 0.92 Discharge Instructions Discharge Planning: Discharge Planning > 40 minutes If patient is discharged with left ventricular systolic dysfunction: NA Discharged with a beta yoshi? [] If no, why not? [] Discharged with an moe/arb? [] If no, why not? [] Activity as tolerated Diabetic Diet Complete course of levaquin Complete course of diflucan YOU HAVE A HOSPITAL FOLLOW UP WITH ANUJA DÍAZ NP, ON THURSDAY, AT 1:30. SHOULD YOU HAVE ANY QUESTIONS OR NEED TO RESCHEDULE YOU CAN CONTACT THEIR OFFICE AT [phone]. Discharge Medications: Medications at Discharge (Home Meds & RX) blood sugar diagnostic (AkesoGenXTouch Ultra Blue Test Strip) #100 ea 11/19/18 blood-glucose meter (AkesoGenXTouch Verio Meter) #1 ea 02/10/19 lancets (OneTouch UltraSoft Lancets) See Rx Instructions .Route .COMPLEX #200 ea 08/06/20 hydrocodone 10 mg-acetaminophen 325 mg tablet 1 tab PO QID 09/06/21 methocarbamol 500 mg tablet 500 mg PO BID 05/01/22 C.COMMODE (COMMODE) #1 ea 05/02/22 gabapentin 600 mg tablet 600 mg PO TID 06/02/22 metoprolol tartrate 25 mg tablet See Rx Instructions .Route .COMPLEX #180 tabs 01/06/23 pen needle, diabetic 31 gauge x 3/16" (TRUEplus Pen Needle) #100 ea 01/08/23 insulin glargine 100 unit/mL (3 mL) subcutaneous pen (Lantus Solostar U-100 Insulin) 70 unit (0.7 mL) subcut QDAY 30 days #21 ea 02/25/23 ergocalciferol (vitamin D2) 1,250 mcg (50,000 unit) capsule (Vitamin D2) See Rx Instructions .Route .COMPLEX #4 caps 03/03/23 bupropion HCl 300 mg 24 hr tablet, extended release 300 mg PO QAM #90 tabs 03/16/23 buspirone 30 mg tablet 30 mg PO BID 90 days #180 tabs 03/16/23 insulin lispro 100 unit/mL subcutaneous pen (Humalog KwikPen (U-100) Insulin) See Rx Instructions .Route .COMPLEX #15 mL 05/11/23 pantoprazole 20 mg tablet,delayed release See Rx Instructions .Route .COMPLEX #30 tabs 05/11/23 simvastatin 20 mg tablet See Rx Instructions .Route .COMPLEX #30 tabs 05/11/23 sitagliptin phosphate 100 mg tablet (Januvia) 100 mg PO DAILY #90 tabs 05/11/23 escitalopram oxalate 20 mg tablet 20 mg PO QDAY #90 tabs 05/12/23 trazodone 100 mg tablet 100 - 150 mg PO QHS PRN insomnia 90 days #135 tabs 05/12/23 fluconazole 150 mg tablet 150 mg PO DAILY #1 tab 05/14/23 levofloxacin 750 mg tablet 750 mg PO DAILY #8 tabs 05/14/23 Discharge Plan Discharge Discharge Orders: Discharge Patient (ONCE); Ordered 05/14/23 Ordered By: JUAN WADE Activity Restrictions/Additional Instructions: Activity as tolerated Diabetic Diet Complete course of levaquin Complete course of diflucan YOU HAVE A HOSPITAL FOLLOW UP WITH ANUJA DÍAZ NP, ON AT 1:30. SHOULD YOU HAVE ANY QUESTIONS OR NEED TO RESCHEDULE YOU CAN CONTACT THEIR OFFICE AT [phone]. Instructions: Urinary Tract Infection in Women (GEN), Yeast Infection (GEN) Patient Disposition: HOME SELF-CARE Prescriptions: New fluconazole 150 mg Tablet 150 mg PO DAILY Qty: 1 0RF levofloxacin 750 mg tablet 750 mg PO DAILY Qty: 8 0RF Continued (DME) OneTouch Ultra Blue Test Strip 1 EACH strip 1 ea MC BID 30 Days Qty: 100 11RF (DME) blood-glucose meter [OneTouch Verio Meter] 1 EACH misc 1 ea MC BID Qty: 1 0RF lancets [OneTouch UltraSoft Lancets] Misc See Rx Instructions .ROUTE .COMPLEX Qty: 200 6RF Dose Instruction: TAKE ONE TABLET USE TO TEST THREE TIMES DAILY NEEDED Rx Instructions: TAKE ONE TABLET USE TO TEST THREE TIMES DAILY NEEDED metoprolol tartrate 25 mg tablet See Rx Instructions .ROUTE .COMPLEX Qty: 180 1RF Dose Instruction: TAKE ONE TABLET TWICE DAILY GENERIC FOR LOPRESSOR Rx Instructions: TAKE ONE TABLET TWICE DAILY GENERIC FOR LOPRESSOR (DME) pen needle, diabetic [TRUEplus Pen Needle] 31 gauge x 3/16" needle See Rx Instructions .ROUTE .COMPLEX Qty: 100 6RF Dose Instruction: INJECT WITH LANTUS AND HUMALOG Rx Instructions: INJECT WITH LANTUS AND HUMALOG ergocalciferol (vitamin D2) [Vitamin D2] 1,250 mcg (50,000 unit) capsule See Rx Instructions .ROUTE .COMPLEX Qty: 4 2RF Dose Instruction: TAKE ONE CAPSULE WEEKLY DIRECTED Rx Instructions: TAKE ONE CAPSULE WEEKLY DIRECTED pantoprazole 20 mg tablet,delayed release (DR/EC) See Rx Instructions .ROUTE .COMPLEX Qty: 30 0RF Dose Instruction: TAKE ONE TABLET DAILY GENERIC FOR PROTONIX NO FURTHER REFILLS UNTIL REGULAR SCHEDULED APPT IN CLINIC Rx Instructions: TAKE ONE TABLET DAILY GENERIC FOR PROTONIX insulin lispro [Humalog KwikPen Insulin] 100 unit/mL insulin pen See Rx Instructions .ROUTE .COMPLEX Qty: 15 0RF Dose Instruction: INJECT 30 UNITS SUBCUTANEOUSLY THREE TIMES DAILY MUST LAST 16 DAYS-NO FURTHER REFILLS UNTIL REGULAR SCHEDULED APPT IN CLINIC Rx Instructions: INJECT 30 UNITS SUBCUTANEOUSLY THREE TIMES DAILY MUST LAST 16 DAYS simvastatin 20 mg tablet See Rx Instructions .ROUTE .COMPLEX Qty: 30 0RF Dose Instruction: TAKE ONE TABLET DAILY GENERIC FOR ZOCOR-NO FURTHER REFILLS UNTIL REGULAR SCHEDULED APPT IN CLINIC Rx Instructions: TAKE ONE TABLET DAILY GENERIC FOR ZOCOR Januvia 100 mg tablet 100 mg PO DAILY Qty: 90 1RF trazodone 100 mg tablet 100 - 150 mg PO QHS PRN (Reason: insomnia) 90 Days Qty: 135 0RF escitalopram oxalate 20 mg tablet 20 mg PO QDAY Qty: 90 0RF methocarbamol 500 mg tablet 500 mg PO BID (DME) COMMODE Misc Qty: 1 0RF Rx Instructions: STANDARD BEDSIDE COMMODE DX: Z89.511, Z89.512 gabapentin 600 mg tablet 600 mg PO TID bupropion HCl 300 mg tablet extended release 24 hr 300 mg PO QAM Qty: 90 0RF buspirone 30 mg tablet 30 mg PO BID 90 Days Qty: 180 0RF hydrocodone-acetaminophen 10-325 mg tablet 1 tab PO QID insulin glargine [Lantus Solostar U-100 Insulin] 100 unit/mL (3 mL) insulin pen 70 unit subcut QDAY 30 Days Qty: 21 2RF Did you review [place] [employer] for ALL controlled substances?: No Discussed opioids are addictive and Narcan is available by prescription or from pharmacy.: No Condition: Stable
[2023-05-14] MEDS ORDERED: LEVAQUIN 750 MG/150 ML D5W 750 MG/150 ML BAG IV SCH (21:00)
== END 2023-05-14 14:20 | disposition home or self-care (01) ==
LOC: ED 14:22 → MEDSURG B 16:28 → INTOOBSV 16:28 → MEDSURG B 16:48
PROVIDERS: ADMIT Hospitalist; ATTEND Nurse Practitioner Family